=== PATIENT | female | born 1990 | race Caucasian/White ===

== ENCOUNTER → 2020-04-03 15:15 | Outpatient (CLI) | payer BC, SELFPAY ==
[2020-04-03 14:41] VITALS: BMI 29.4
[2020-04-03 15:49] LABS: Absolute Lymphocyte Count 2.35 X10^3/uL (0.83-4.51); Absolute Neutrophil Count 6.6 X10^3/uL (2.0-7.7); Basophil# 0.02 X10^3/uL; Basophil% 0.2 % (0-1); Eosinophil# 0.13 X10^3/uL; Eosinophils% 1.4 % (0-5); Hematocrit 39.2 % (37-47); Hemoglobin 13.5 g/dL (12.0-15.0); Lymphocyte # 2.35 X10^3/ul (4.0); Lymphocyte % 24.6 % (19-41); Mean Corp Hgb Conc 34.4 g/dL (32-36); Mean Corpuscular Hgb 29.1 pg (27.0-32.0); Mean Corpuscular Volume 84.5 fL (81-99); Mean Platelet Vol. 8.9 fl (6.2-12.0); Monocyte# 0.48 X10^3/uL; NRBC Flagged by Analyzer 0 % (0-5); Neutrophil # 6.57 X10^3/uL (2.7-7.7); Neutrophil % 68.6 % (47-70); Platelet Count 304 K/mm3 (150-450); RBC Distribution Width CV 12.7 % (11.6-14.6); RBC Distribution Width SD 38.8 fl (35.1-43.9); Red Blood Count 4.64 M/mm3 (4.2-5.4); White Blood Count 9.6 K/mm3 (4.4-11.0)
[2020-04-03 18:57] LABS: Amphetamine Urine VISTA NEGATIVE (<1000 ng/mL); Barbiturate Urine VISTA NEGATIVE (< 200 ng/mL); Benzodiazepine Urine VISTA NEGATIVE (< 200 ng/mL); Cocaine Urine VISTA NEGATIVE (< 300 ng/mL); Ecstacy Urine VISTA NEGATIVE (< 500 ng/mL); Methadone Urine VISTA NEGATIVE (< 300 ng/mL); PCP Urine VISTA NEGATIVE (< 25 ng/mL); THC Urine VISTA NEGATIVE (< 50 ng/mL); Vista UDS pH Range 5
[2020-04-04 04:31] LABS: Rapid Plasmin Reagin (RPR) NONREACTIVE (NONREACTIVE)
[2020-04-04 10:21] LABS: HIV - WCH Non-Reactive (Nonreactive); Hepatitis B Surface Antigen Non-Reactive (Nonreactive); Hepatitis C Antibody Non-Reactive (Nonreactive); Rubella IgG 75.3 IU/mL
[2020-04-06 20:07] LABS: Chlamydia By Nucleic Acid AMP Negative (Negative)
[2020-04-06 20:50] LABS: Gonococcus By Nucleic Acid AMP Negative (Negative)
[2020-04-08 20:51] LABS: HPV Reflexed? NOT INDICATED
== END ==
PROVIDERS: Referring Provider Obstetrics & Gynecology; Visit Provider Obstetrics & Gynecology
DX: Z34.80 Encounter for supervision of other normal pregnancy, unspecified trimester (principal); Z12.4 Encounter for screening for malignant neoplasm of cervix
CPT/HCPCS: 36415; 80307; 85025; 86592; 86703; 86762; 86803; 86850; 86900; 86901; 87086; 87088; 87340; 87491; 87591; 88175; G0145

== ENCOUNTER → 2020-05-07 10:19 | Outpatient (CLI) | payer BC, SELFPAY ==
[2020-05-07 09:55] VITALS: BMI 29.2
[2020-05-07 17:09] LABS: NATERA MAILED SPECIMEN
[2020-05-08 12:19] LABS: Toxoplasma Gondii IgG < 3.0 IU/mL (0.0-7.1); Toxoplasma Gondii IgM < 3.0 AU/mL (0.0-7.9)
== END ==
PROVIDERS: Referring Provider Nurse Practitioner Women's Health; Visit Provider Nurse Practitioner Women's Health
DX: Z31.430 Encounter of female for testing for genetic disease carrier status for procreative management (principal); Z34.81 Encounter for supervision of other normal pregnancy, first trimester
CPT/HCPCS: 36415; 86777; 86778

== ENCOUNTER → 2020-06-19 10:20 | Outpatient (CLI) | payer BC, SELFPAY ==
[2020-05-29 13:38] VITALS: BMI 29.8
== END ==
PROVIDERS: Referring Provider Nurse Practitioner Women's Health; Visit Provider Nurse Practitioner Women's Health
DX: U07.1 COVID-19 (principal)
CPT/HCPCS: 87635; C9803; U0003

== ENCOUNTER → 2020-08-21 11:22 | Outpatient (CLI) | payer BC, SELFPAY ==
[2020-07-24 10:57] VITALS: BMI 30.5
[2020-08-21 11:45] LABS: Absolute Lymphocyte Count 1.64 X10^3/uL (0.83-4.51); Absolute Neutrophil Count 6.5 X10^3/uL (2.0-7.7); Basophil# 0.02 X10^3/uL; Basophil% 0.2 % (0-1); Eosinophil# 0.09 X10^3/uL; Hematocrit 35.2 % (37-47); Hemoglobin 11.8 g/dL (12.0-15.0); Lymphocyte # 1.64 X10^3/ul (4.0); Mean Corp Hgb Conc 33.5 g/dL (32-36); Mean Corpuscular Hgb 29.2 pg (27.0-32.0); Mean Corpuscular Volume 87.1 fL (81-99); Mean Platelet Vol. 8.5 fl (6.2-12.0); Monocyte# 0.36 X10^3/uL; Monocyte% 4.2 % (0-10); NRBC Flagged by Analyzer 0 % (0-5); Neutrophil # 6.48 X10^3/uL (2.7-7.7); Neutrophil % 75.1 % (47-70); Platelet Count 218 K/mm3 (150-450); RBC Distribution Width CV 13.2 % (11.6-14.6); RBC Distribution Width SD 42.1 fl (35.1-43.9); Red Blood Count 4.04 M/mm3 (4.2-5.4); White Blood Count 8.6 K/mm3 (4.4-11.0)
[2020-08-21 11:52] LABS: Glucose Challenge Gest 1H 50g 81 mg/dL (70-140)
[2020-08-22 13:30] LABS: Toxoplasma Gondii IgG < 3.0 IU/mL (0.0-7.1)
[2020-08-22 13:49] LABS: Toxoplasma Gondii IgM < 3.0 AU/mL (0.0-7.9)
== END ==
PROVIDERS: Referring Provider Obstetrics & Gynecology; Visit Provider Obstetrics & Gynecology
DX: Z34.80 Encounter for supervision of other normal pregnancy, unspecified trimester (principal); Z20.7 Contact with and (suspected) exposure to pediculosis, acariasis and other infestations
CPT/HCPCS: 36415; 82950; 85025; 86777; 86778

== ENCOUNTER → 2020-09-26 14:33 | Outpatient (CLI) | payer BC, SELFPAY ==
[2020-09-18 15:57] VITALS: BMI 32.5
--- NOTE | 2020-09-26 14:44 | US_ITS ---
STUDY: SECOND AND THIRD TRIMESTER OBSTETRICAL ULTRASOUND - LIMITED REASON FOR EXAM: Female, 30 years old 30 week growth US LMP: Unknown. PRIOR ULTRASOUND: None. TECHNIQUE: Transabdominal TECHNICAL QUALITY: Adequate. FINDINGS: There is a single intrauterine fetus. The fetus is in a cephalic presentation. There is demonstrated cardiac activity with a heart rate of 140 bpm. There is a normal -borderline polyhydramnios . The largest amniotic fluid pocket measures 5.3 cm. The amniotic fluid index (MILLY) is 19.5 cm. The placenta is fundal in location. There are Grade 1 placental changes. The cervix measures 3.8 cm cm in length. The cervix is closed. Bilateral adnexal regions are not visualized. BIOMETRY: BPD: 8.5 cm: 34 weeks, 3 days HC: 30.7 cm: 34 weeks, 1 days AC: 29.6 cm: 33 weeks, 4 days FL: 6.5 cm: 33 weeks, 2 days Age by LMP: 33 weeks, 4 days. ASHWIN by LMP: 11/10/2020. age by prior US: No prior ultrasound. age by current US: 33 weeks, 5 days. ASHWIN by current US: 11/09/2020. Estimated weight: 2281 grams, +/- 342 grams, 50 percentile. anatomy is limited due to advanced gestation and motion. There is mild right-sided renal pelviectasis up to 0.8-0.9 cm. Subtle punctate echogenicities within the amniotic fluid which may be associated with vernix. intracranial structures. No hydrocephalus. US/OB Limited With Biometrics IMPRESSION: Single intrauterine with ultrasound age of 33 weeks and 5 days and estimated date of delivery of 11/05/2020. Fundal placenta. No previa. VERTEX presentation. Normal-borderline polyhydramnios amniotic fluid is described. Right-sided renal pelvis dilatation/pelviectasis, follow-up recommended to exclude development of right hydronephrosis including the period. Normal cardiac activity. Electronically Signed: Shyann Markham MD at 0:43 EST , Service support ,
== END ==
PROVIDERS: Referring Provider Nurse Practitioner Women's Health; Visit Provider Nurse Practitioner Women's Health
DX: Z34.80 Encounter for supervision of other normal pregnancy, unspecified trimester (principal)
CPT/HCPCS: 76816

== ENCOUNTER → 2020-10-16 16:17 | Outpatient (CLI) | payer BC, SELFPAY ==
[2020-10-16 13:23] VITALS: BMI 32.6
== END ==
PROVIDERS: Referring Provider Obstetrics & Gynecology; Visit Provider Obstetrics & Gynecology
DX: Z34.80 Encounter for supervision of other normal pregnancy, unspecified trimester (principal)
CPT/HCPCS: 87081

== ENCOUNTER 2020-10-23 02:45 | Inpatient (IN) | payer BC, SELFPAY ==
[2020-10-16 13:23] VITALS: BMI 32.6
[2020-10-23] VITALS (44 sets, daily range): BP systolic 87–117; BP diastolic 51–72; PULSE 68–101; RESP 16–18; TEMP 36.1–37.1; O2SAT 98–100; BMI 32.2
[2020-10-23 02:43] LABS: ROM Internal Control Test YES-OK TO RESULT pt. (Internal QC)
[2020-10-23 02:44] LABS: ROM Patient Test POSITIVE (Negative)
[2020-10-23] MEDS: Lactated Ringers 1,000 ML 50 ML IV (04:30)
[2020-10-23 04:59] LABS: Absolute Neutrophil Count 7.9 X10^3/uL (2.0-7.7); Basophil# 0.03 X10^3/uL; Basophil% 0.3 % (0-1); Eosinophil# 0.06 X10^3/uL; Eosinophils% 0.5 % (0-5); Hematocrit 36.9 % (37-47); Hemoglobin 12.6 g/dL (12.0-15.0); Lymphocyte % 21.9 % (19-41); Mean Corp Hgb Conc 34.1 g/dL (32-36); Mean Corpuscular Hgb 30.1 pg (27.0-32.0); Mean Corpuscular Volume 88.3 fL (81-99); Monocyte# 0.54 X10^3/uL; Monocyte% 4.9 % (0-10); NRBC Flagged by Analyzer 0 % (0-5); Neutrophil # 7.86 X10^3/uL (2.7-7.7); Neutrophil % 71.9 % (47-70); Platelet Count 212 K/mm3 (150-450); RBC Distribution Width CV 13.2 % (11.6-14.6); RBC Distribution Width SD 43.5 fl (35.1-43.9); Red Blood Count 4.18 M/mm3 (4.2-5.4); White Blood Count 10.9 K/mm3 (4.4-11.0)
[2020-10-23] MEDS: Oxytocin 30 units/NS 500 ml 30 UNITS/500 ML IV.SOLN IV (06:03)
--- NOTE | 2020-10-23 08:03 | HP.PCM_ITS ---
- Problem List (1) Abnormal ultrasound Status: Acute Comment: MFM scan on 10/07- Offered echo 2/2 abnormal 3 vessel views, but MFM said not completely necessary as view likely normal. Declines echo. 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 Titers drawn 05/07 then in 12w if neg. Neg. titers from 05/07 (5) Family history of cystic fibrosis Status: Acute Comment: Prior infant CF carrier. (6) pyelectasis Status: Acute Comment: ride side- MFM scan done 10/07 no pyelectasis seen (7) Headache in Status: Acute Qualifiers: Comment: Reports near daily headaches. Recommended daily magnesium supplement. Reglan prescribed to help with headaches. Recommend taking tylenol, reglan, and benadryl if severe. (8) History of tetanus, diphtheria, and acellular pertussis booster vaccination (Tdap) Status: Acute Comment: 08/21/20 (9) Status: Acute Qualifiers: Comment: genetic- low risk female, carrier and NTD, nl anatomy (10) Supervision of other normal Status: Acute Comment: [id number] ASHWIN Girl! 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 Required: No Is patient in pain?: No Allergies No Known Allergies Allergy (Verified 10/16/20 13:23) Medications Vits Prenatabs FA 1 tab PO DAILY 12/06/14 history Confirmed 10/16/20 metoclopramide HCl 10 mg tablet 10 mg PO Q6H PRN #30 tab 05/29/20 Rx Confirmed 10/16/20 ondansetron 4 mg disintegrating tablet 4 mg PO Q8H #30 tab 05/29/20 Rx Confirmed 10/16/20 scopolamine base 1 mg over 3 days transdermal patch 1 patch TRANSDERMAL Q3D PRN #10 ea 05/31/20 Rx Confirmed 10/16/20 aspirin 81 mg chewable tablet 81 mg PO DAILY 07/04/20 history Confirmed 10/16/20 magnesium chloride mg PO 07/04/20 history Confirmed 10/16/20 Last Menstral Period: 02/01/20 Zika: Zika virus screening: Negative : No PFSH PFSH Surgical History H/O wisdom tooth extraction (Acute) Social History (Updated 10/16/20 @ 14:[address] Jessica Armstrong MD) Smoking Status: Never smoker Pregancy History 3 Elective abortions Hx Para 2 Spontaneous abortions Hx # Term Pregnancies Ectopic pregnancies Hx # Pregnancies Multiple births # of living children 2 Past Pregnancies Del. Date Name GA/Weeks Outcome Route Bth Weight Gen Labor Lgth Anesthesia Del Locatn Provider FOB Unknown 12/06/2014 Brad 41 live - full term 8lbs 7oz Male 12 hours epidural [facility] Ram Irvin Unknown 03/30/2016 Brennan 39 live - full term 8lbs 1oz Male 4hours epidural [facility] Marcanthony Irvin Delivery Date: no complications; + GBS tx in labor with PCN Zelda Bates Delivery Date: no complication; GBS + tx with PCN in labor Zelda Bates HPI 36 WK OB: Details: MARITZA REN is a 30 year old at 37 weeks presents with clear loss of fluid with no regular contractions no vaginal bleeding good movement. Patient has had an uncomplicated . OB Visit ASHWIN Calculator Estimated Delivery Date Method Current WG Current Estimate 11/10/20 LMP (Certain) 36w 3d Other Estimates 11/06/20 Ultrasound #1 37w 0d Expected Delivery Route/Plan Labor Preferences- CB/BF classes: no labor support person: Irvin labor intervention preferences: open to standard interventions pain management options preferred: epidural cut cord/dad catch: NO!! : yes PP control planned: discussed possible routes of delivery and associated risks: discussed possible delivery modalities and possible indications for each including R/B/A of , VAVD, FAVD, and CS. questions answered. special requests: Specific Issue/Plans flu vaccine: declines tdap vaccine: given rhogam: na LARC form signed: 2/3 Problem list reviewed and updated with the most current plan of care details and appropriate orders placed. Relevant counseling for the gestational age provided. Continue routine care and follow up unless otherwise noted in visit notes/problem list details Initial Weight: 162 lb Date EGA Weight BP Urine Prot Glucose FHR FuHt Pres Dilation Effaced St Visit Note 04/03/20 8w 3d 162 lb (+0 oz) 185 GP - CRL 20mm consistent with LMP 05/07/20 13w 2d 165 lb 2 oz (+3 lb 2 oz) 110/60 Negative Negative 154 MH-No VB,LOF. Mininal nausea with car rides/will call if wants zofran. Toxo titers and carrier/NIPT drawn today. 05/29/20 16w 3d 168 lb 6 oz (+6 lb 6 oz) 116/60 Negative Negative 150 GP - no cramping or bleeding. Continued nausea in car - zofran prescribed. Rec scopalamine patch. Daily headaches - recommended magnesium, prn reglan prescribed. 07/04/20 21w 4d 170 lb (+8 lb) 110/60 Negative Negative 156 MH-No VB, LOF. Good FM. 07/24/20 24w 3d 172 lb 8 oz (+10 lb 8 oz) 108/60 Negative Negative 150 GP - no LOF, VB, DFM, ctx. Plan toxo titers with 28w labs. GP - no LOF, VB, DFM, ctx. Plan toxo titers with 28w labs. Headache improved with daily magnesium. 08/21/20 28w 3d 180 lb 2 oz (+18 lb 2 oz) 102/68 Negative Negative 145 28 GP - no ctx, LOF, VB, DFM. 28w labs normal. Toxo titers pending. Having low BP and dizziness - rec increased fluids and salt intake. 09/05/20 30w 4d 182 lb 4 oz (+20 lb 4 oz) 102/62 Negative Negative 145 30 GP - no LOF, VB, DFM, ctx. Denies complaints. 09/18/20 32w 3d 184 lb 2 oz (+22 lb 2 oz) 100/62 Negative Negative 147 32 MH-No VB, LOF. Good FM. Growth US ordered 10/04/20 34w 5d 185 lb 4 oz (+23 lb 4 oz) 100/70 Negative Negative 135 34 GP - no LOF, VB, DFM, ctx. Denies complaints. Discussed labor preferences and routes of delivery. 10/16/20 36w 3d 184 lb 3 oz (+22 lb 3 oz) 100/72 Negative Negative 135 36 GP - no LOF, VB, DFM, ctx. GBS done today. ACOG First Trimester First Trimester: Desire for , Alcohol, Tobacco Cessation, Illicit/Recreational Drug/Substance Use, Intimate Partner Violence, Barriers to care, Unstable Housing, Communication Barriers, Environmental/Work Hazards, Anticipated Course of Care, Toxoplasmosis Precations, Use of Any medications, Sexual activity, Exercise, Dental Care, Sauna/Hot tub use, Seat Belt use, Childbirth classes/Hospital facilities, , Indications for US and Screening for Aneuploidy Diagnostics Diagnostics Diagnostics Blood Type A POSITIVE 04/03/20 Antibody Screen NEGATIVE 04/03/20 Glucose 1 Hr 50 gm 81 mg/dL (70-140) 08/21/20 HIV 1&2 Antibody Non-Reactive (Nonreactive) 04/03/20 Rubella IgG Antibody 75.3 IU/mL 04/03/20 Hgb 11.8 g/dL (12.0-15.0) L 08/21/20 Hct 35.2 % (37-47) L 08/21/20 RPR NONREACTIVE (NONREACTIVE) 04/03/20 Chlamydia DNA (JIMMY) Negative (Negative) 04/03/20 N.gonorrhoeae DNA (JIMMY) Negative (Negative) 04/03/20 Details: HIV: Urine Culture: Sequential Screen: NIPT Screen: ROS GI Denies heartburn, Denies nausea, Denies vomiting Denies abnormal vaginal bleeding, Denies painful urination, Denies pelvic pain, Denies vaginal discharge, Denies vaginal odor, Denies vaginal itching Exam Const General: cooperative, healthy appearing, comfortable, no acute distress, well developed, well groomed Nutritional Appearance: average body habitus, well nourished Orientation: alert, awake, oriented x3 HENMT Head: normal to inspection, normocephalic, atraumatic Eyes Pupils: PERRL, accommodation normal Resp Effort & Inspection: normal respiratory effort, able to speak in complete sentences, symmetric chest movement Cardio Rate: regular rate GI Palpation: soft, no guarding, no masses, nontender Skin General: no rashes or lesions noted, elasticity normal, turgor normal Neuro General: alert, awake, oriented x3 Cranial Nerves: CN's II-XI intact bilaterally, sense of smell intact, PERRL, accommodation normal, EOM intact bilaterally Speech: speech normal Gait: normal gait Psych Appearance: grossly normal, well kempt Mental Status: mental status grossly normal Mood: congruent mood Affect: normal affect Speech and Movement: speech and movement normal Attitude: cooperative Thought Process: normal Thought Content: normal Judgment: judgment good Results POC Urinalysis 2 Dip (Clinic) Office Urine Glucose Negative Last Edit by Cici Limon on 10/16/20 13:39 Office Urine Protein Negative Last Edit by Cici Limon on 10/16/20 13:39 Assessment & Plan Problems 1. Abnormal ultrasound O28.3 MFM scan on 10/07- Offered echo 08/20 abnormal 3 vessel views, but MFM said not completely necessary as view likely normal. Declines echo. 2. History of tetanus, diphtheria, and acellular pertussis booster vaccination (Tdap) Z92.29 08/21/20 3. pyelectasis ride side- MFM scan done 10/07 no pyelectasis seen 4. headache in third trimester O26.893 Reports near daily headaches. Recommended daily magnesium supplement. Reglan prescribed to help with headaches. Recommend taking tylenol, reglan, and benadryl if severe. 5. Cystic fibrosis carrier Z14.1 positive carrier 6. Family history of cystic fibrosis Z83.49 Prior CF carrier. 7. 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 Titers drawn /20 then in 12w if neg. Neg. titers from 20 8. Supervision of other normal Z34.80 [id number] ASHWIN Girl! PC: Brennan Salinas Spouse: Irvin 9. 36 weeks gestation of Z3A.36 genetic- low risk female, carrier and NTD, nl anatomy 10. COVID-19 affecting , antepartum O98.519; U07.1 baby ASA and growth scan 3rd trimester Patient presents PROM plan Pitocin for augmentation if no spontaneous change. Pain management: Plans epidural. GBS negative. Management of any complications: None I have reviewed the [facility] and made any clinically relevant updates. Orders Orders: POC Urinalysis 2 Dip (Clinic) Today Culture, Group B Streptococcus Today Z34.80 Coding Level of Care Code OB Routine Diagnoses Abnormal ultrasound O28.3 History of tetanus, diphtheria, and acellular pertussis booster vaccination (Tdap) Z92.29 pyelectasis headache in third trimester O26.893 ??Trimester: third trimester Cystic fibrosis carrier Z14.1 Family history of cystic fibrosis Z83.49 Exposure to Toxoplasma species Z20.7 Supervision of other normal Z34.80 36 weeks gestation of Z3A.36 ??Weeks of gestation: 36 weeks COVID-19 affecting , antepartum O98.519; U07.1
[2020-10-23] MEDS: Lactated Ringers 500 ML 999 ML IV (09:06)
[2020-10-23] MEDS: fentaNYL-bupivacaine (epidural) 100 ML BAG EPIDURAL (10:01)
[2020-10-23] MEDS: Oxytocin 30 units/NS 500 ml 30 UNITS/500 ML IV.SOLN 334 UNITS IV (11:11)
--- NOTE | 2020-10-23 11:22 | PCM.OPRPT ---
Problem List (1) Abnormal ultrasound Status: Acute Comment: MFM scan on 10/07- Offered echo 2/2 abnormal 3 vessel views, but MFM said not completely necessary as view likely normal. Declines echo. 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 Titers drawn 05/07 then in 12w if neg. Neg. titers from 05/07 (5) Family history of cystic fibrosis Status: Acute Comment: Prior infant CF carrier. (6) pyelectasis Status: Acute Comment: ride side- MFM scan done 10/07 no pyelectasis seen (7) Headache in Status: Acute Qualifiers: Comment: Reports near daily headaches. Recommended daily magnesium supplement. Reglan prescribed to help with headaches. Recommend taking tylenol, reglan, and benadryl if severe. (8) History of tetanus, diphtheria, and acellular pertussis booster vaccination (Tdap) Status: Acute Comment: 08/21/20 (9) Status: Acute Qualifiers: Comment: genetic- low risk female, carrier and NTD, nl anatomy (10) Supervision of other normal Status: Acute Comment: [id number] ASHWIN Girl! PC: Brennan Salinas Spouse: Irvin Vaginal Delivery Maternal Presentation: Active Labor ial PROM Method of Induction: Pitocin Amniotic Membrane Rupture Type: Spontaneous at home Amniotic Fluid Description: Clear Date of Procedure: 10/23/20 Pre-Operative Diagnosis: ial prom Post-Operative Diagnosis: same Surgery/ Procedure Performed: Spontaneous Vaginal Delivery Type of Anesthesia: Epidural Description of Procedure: Patient began pushing and delivered the head in the LONNIE presentation. The head was delivered atraumatically . The anterior and posterior shoulders delivered without complication followed by the rest of the infant and the was placed on the maternal abdomen. Delayed cord clamping was employed for approximately 60 seconds. Cord was clamped and cut and gentle traction was applied to the cord and the placenta delivered spontaneously immediately following it was noted to be intact with three-vessel cord. The perineum and vagina were inspected and noted to have no laceration. EBL was 100 cc. Patient and infant tolerated delivery well. Presentation: LONNIE Placental Delivery Description: Spontaneous Placenta Disposition: [facility] Cord Vessel Description: 3 Vessels Cord Entanglement: None Estimated Blood Loss: 100 Infant A gender: Female Episiotomy Description: None Laceration: None Medications given after delivery: IV Pitocin Complications: None Multi Select Codes - Urinary/Genital Urinary/Genital CPT Codes: 25968 Vaginal Delivery [facility]
--- NOTE | 2020-10-23 11:24 | DCINST_ITS ---
Discharge Diet: No Restrictions Discharge Activity: Return to Normal Activity, May not drive while taking narcotic pain medications., May Shower May resume sexual activity in: 4-6 weeks Call your doctor if your incision/area has: Continuous Slow Oozing, Sudden Increased Bleeding, Increased Pain/ Swelling, Increased Redness, Foul Smelling Discharge Additional Instructions: If you experience any of the following, contact your healthcare provider. * Bleeding that soaks a pad every hour for 2 hours * Fever 100.4 or higher * Unrelieved incision or abdominal pain * Swelling, redness, discharge or bleeding from your incision or episiotomy site * Your incision begins to separate * Problems urinating (including inability to urinate or burning while urinating). * Visual changes * Severe headache * Flu-like symptoms * Pain or redness in one of both of your breasts * Pain, warmth, tenderness or swelling in your legs, especially the calf area * Frequent nausea and vomiting * Symptoms of depression or anxiety If you experience any of the following, call 911 or go to the nearest Emergency Room. * Chest pain * Problems breathing * Seizure activity * Partial or complete paralysis of a body part, slurred speech, weakness or drooping of the face, or a sudden inability to walk or hold your balance Allergies/Adverse Reactions: Allergies No Known Allergies Allergy (Verified 10/23/20 02:24) Medications to take at Discharge Vits [Prenatabs FA] 1 tab PO DAILY 12/06/14 aspirin 81 mg chewable tablet 81 mg PO DAILY 07/04/20 magnesium chloride 500 mg PO 07/04/20 Vitamin B6 10/23/20 Please Follow Up With: Lily Vila MD - [phone] When: Call to make an appointment with your doctor in 6 weeks. If you had elevated Blood pressure or 4th degree laceration you will need to be seen in 2 weeks. Primary Care Physician: Care Physician,No Primary [Primary Care Provider] - Test Results: Test results from this visit will be discussed in further detail at your follow- up appointment, if applicable.
--- NOTE | 2020-10-23 11:24 | PCM.DCVAG ---
Discharge Diet: No Restrictions Discharge Activity: Return to Normal Activity, May not drive while taking narcotic pain medications., May Shower May resume sexual activity in: 4-6 weeks Call your doctor if your incision/area has: Continuous Slow Oozing, Sudden Increased Bleeding, Increased Pain/ Swelling, Increased Redness, Foul Smelling Discharge Additional Instructions: If you experience any of the following, contact your healthcare provider. Bleeding that soaks a pad every hour for 2 hours Fever 100.4 or higher Unrelieved incision or abdominal pain Swelling, redness, discharge or bleeding from your incision or episiotomy site Your incision begins to separate Problems urinating (including inability to urinate or burning while urinating). Visual changes Severe headache Flu-like symptoms Pain or redness in one of both of your breasts Pain, warmth, tenderness or swelling in your legs, especially the calf area Frequent nausea and vomiting Symptoms of depression or anxiety If you experience any of the following, call 911 or go to the nearest Emergency Room. Chest pain Problems breathing Seizure activity Partial or complete paralysis of a body part, slurred speech, weakness or drooping of the face, or a sudden inability to walk or hold your balance Allergies/Adverse Reactions: Allergies No Known Allergies Allergy (Verified 10/23/20 02:24) Medications to take at Discharge Vits [Prenatabs FA] 1 tab PO DAILY 12/06/14 aspirin 81 mg chewable tablet 81 mg PO DAILY 07/04/20 magnesium chloride 500 mg PO 07/04/20 Vitamin B6 10/23/20 Please Follow Up With: Lily Vila MD - [phone] When: Call to make an appointment with your doctor in 6 weeks. If you had elevated Blood pressure or 4th degree laceration you will need to be seen in 2 weeks. Primary Care Physician: Care Physician,No Primary [Primary Care Provider] - Test Results: Test results from this visit will be discussed in further detail at your follow-up appointment, if applicable.
[2020-10-23] MEDS: 0.9% Saline Lock 10 ML Syringe IV (14:00)
[2020-10-23] MEDS: Acetaminophen 500 MG Tablet 1000 MG PO (21:04)
[2020-10-23] MEDS: Naproxen 250 MG Tablet 500 MG PO (22:28)
[2020-10-24 01:25] VITALS: BP 108/68; PULSE 77; RESP 16; TEMP 36.2
[2020-10-24 05:12] VITALS: BP 108/68; PULSE 81; TEMP 36.1
[2020-10-24 05:14] VITALS: BP 108/68; PULSE 81; RESP 18; TEMP 36.1
[2020-10-24 07:52] VITALS: BP 101/64; PULSE 89; RESP 16; TEMP 36
--- NOTE | 2020-10-24 08:15 | PCM.PN.OB ---
Patient Problems: Active and Suspected Problems (Last Reviewed 10/16/20 @ 13:23 by Cici Limon) Abnormal ultrasound (Acute) MFM scan on 10/07- Offered echo 2/ abnormal 3 vessel views, but MFM said not completely necessary as view likely normal. Declines echo. History of tetanus, diphtheria, and acellular pertussis booster vaccination (Tdap) (Acute) 08/21/20 pyelectasis (Acute) ride side- MFM scan done 10/07 no pyelectasis seen COVID-19 affecting , antepartum (Acute) baby ASA and growth scan 3rd trimester Headache in (Acute) Reports near daily headaches. Recommended daily magnesium supplement. Reglan prescribed to help with headaches. Recommend taking tylenol, reglan, and benadryl if severe. Cystic fibrosis carrier (Acute) positive carrier Family history of cystic fibrosis (Acute) Prior infant CF carrier. 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 Titers drawn 05/07 then in 12w if neg. Neg. titers from 05/07 Supervision of other normal (Acute) [id number] ASHWIN Girl! PC: Brenann Salinas Spouse: Irvin (Acute) genetic- low risk female, carrier and NTD, nl anatomy Subjective: Patient doing well without complaints. Tolerating PO. Ambulating and voiding without difficulty. feeding well. Denies chest pain, shortness of breath, calf pain/swelling, fevers, chills, lightheadedness. - Physical Exam Vitals/I&O's: Vital Signs Temp Pulse Resp BP Pulse Ox 96.8 F L 89 16 101/64 98 10/24/20 07:52 10/24/20 07:52 10/24/20 07:52 10/24/20 07:52 10/23/20 16:45 Oxygen Delivery Method Room Air Weight: 182 lb 2 oz Body Mass Index (BMI) 32.2 Intake and Output for Last 24 Hours 10/22/20 10/23/20 10/24/20 23:59 23:59 23:59 Intake Total 1529.40 / 1529.40 Output Total 2150 / 2150 Balance -620.60 / -620.60 General: Alert, Oriented x3 Microbiology Past 72 Hours 10/23/20 05:05 Mucosa - Nose SARS-CoV-2 Antigen (Rapid) - Final Current Medications Acetaminophen (Acetaminophen 500 Mg Tablet) 1,000 mg PO Q8H PRN PRN PRN Reason: Pain Score 1-3 Last Admin: 10/23/20 21:04 Dose: 1,000 mg Documented by: Bisacodyl (Bisacodyl 10 Mg Suppository) 10 mg RC UD PRN PRN Reason: If no BM Dibucaine (Dibucaine 30 Gm Tube) 1 applic TOPICAL TID PRN PRN; Protocol PRN Reason: Discomfort Hydrocortisone (Hydrocortisone 2.5% Crm) 1 applic TOPICAL TID PRN PRN; Protocol PRN Reason: Discomfort Methylergonovine Maleate (Methylergonovine 0.2 Mg/Ml Ampul) 0.2 mg IM X1 PRN PRN Reason: Excess bleeding/uterine atony Naproxen (Naproxen 250 Mg Tablet) 500 mg PO Q8H PRN PRN PRN Reason: Pain Score 1-3 Last Admin: 10/23/20 22:28 Dose: 500 mg Documented by: Ondansetron HCl (Ondansetron 4 Mg/2 Ml Vial) 4 mg IV Q4H PRN PRN PRN Reason: Nausea Oxycodone HCl (Oxycodone 5 Mg Tablet) 5 - 10 mg PO Q4H PRN PRN PRN Reason: Pain Score 4-10 Senna/Docusate Sodium (Senna/Docusate Sodium 1 Tablet) 1 - 2 tablet PO DAILY PRN PRN PRN Reason: Constipation Simethicone (Simethicone 80 Mg Tablet) 80 mg PO PCHS PRN PRN Reason: Indigestion/Stomach pain Sodium Chloride (0.9% Saline Lock 10 Ml Syringe) 5 - 15 ml IV UD PRN PRN Reason: SALINE FLUSH Last Admin: 10/23/20 14:00 Dose: 10 ml Documented by: Medical Necessity - Tobacco Use Smoking Status: Never smoker Assessment/Plan All Active Problems (Last Reviewed 10/16/20 @ 13:23 by Cici Limon) 37 weeks gestation of (Acute) Abnormal ultrasound (Acute) History of tetanus, diphtheria, and acellular pertussis booster vaccination (Tdap) (Acute) pyelectasis (Acute) COVID-19 affecting , antepartum (Acute) Headache in (Acute) Cystic fibrosis carrier (Acute) Family history of cystic fibrosis (Acute) Exposure to Toxoplasma species (Acute) Supervision of other normal (Acute) (Acute) s/p PPD # 1. routine post delivery care 2. breast feeding- support given 3. rh positive 4. rubella immune
[2020-10-24 11:49] VITALS: BP 109/66; PULSE 83; RESP 16; TEMP 36.2
== END 2020-10-24 13:35 | disposition home or self-care (01) | DRG 807 ==
LOC: WPOUT 02:46 → WP 02:46
PROVIDERS: Admitting Provider Obstetrics & Gynecology; Visit Provider Obstetrics & Gynecology
DX: O42.913 Preterm premature rupture of membranes, unspecified as to length of time between rupture and onset of labor, third trimester (principal); Z37.0 Single live birth; Z14.1 Cystic fibrosis carrier; Z83.49 Family history of other endocrine, nutritional and metabolic diseases; Z86.16 Personal history of COVID-19; Z3A.37 37 weeks gestation of pregnancy
CPT/HCPCS: 59025; 59050; 84112; 85025; 86850; 86900; 86901; 87426; 99218; J7120; A4216; G0378

== ENCOUNTER → 2022-01-16 | Outpatient (CLI) | payer BC, SELFPAY | END | disposition home or self-care (01) | PROVIDERS: Referring Provider Obstetrics & Gynecology; Visit Provider Obstetrics & Gynecology | DX: B37.3 Candidiasis of vulva and vagina (principal) | CPT/HCPCS: 87070; 87205 ==

== ENCOUNTER → 2022-11-24 | Outpatient (CLI) | payer BC, SELFPAY | END | disposition home or self-care (01) | LOC: LABSPEC 14:04 | PROVIDERS: Referring Provider Advanced Practice Midwife; Visit Provider Advanced Practice Midwife | DX: N76.0 Acute vaginitis (principal) | CPT/HCPCS: 87070; 87205 ==

== ENCOUNTER → 2023-06-23 | Outpatient (CLI) | payer BC, SELFPAY | END | disposition home or self-care (01) | PROVIDERS: Referring Provider Registered Nurse; Visit Provider Registered Nurse | DX: B37.31 Acute candidiasis of vulva and vagina (principal) | CPT/HCPCS: 87070; 87077; 87186; 87205 ==

== ENCOUNTER → 2024-07-06 | Outpatient (CLI) | payer BC, SELFPAY ==
[2024-07-08 08:09] LABS: Chlamydia By Nucleic Acid AMP Negative (Negative); Gonococcus By Nucleic Acid AMP Negative (Negative)
[2024-07-14 23:06] LABS: HPV APTIMA, High Risk Negative (Negative)
== END | disposition home or self-care (01) ==
LOC: LABSPEC 11:32
PROVIDERS: Referring Provider Advanced Practice Midwife; Visit Provider Advanced Practice Midwife
DX: Z12.4 Encounter for screening for malignant neoplasm of cervix (principal); O09.90 Supervision of high risk pregnancy, unspecified, unspecified trimester; Z3A.00 Weeks of gestation of pregnancy not specified
CPT/HCPCS: 87086; 87491; 87591; 87624; 88175; G0145

== ENCOUNTER → 2024-08-07 | Outpatient (CLI) | payer BC, SELFPAY ==
[2024-08-07 12:25] LABS: Absolute Lymphocyte Count 1.16 X10^3/uL (0.83-4.51); Absolute Neutrophil Count 6.3 X10^3/uL (2.0-7.7); Basophil# 0.02 X10^3/uL; Basophil% 0.3 % (0-1); Eosinophil# 0.13 X10^3/uL; Eosinophils% 1.6 % (0-5); Hematocrit 37.5 % (37-47); Hemoglobin 12.7 g/dL (12.0-15.0); Lymphocyte # 1.16 X10^3/ul (0.83-4.51); Lymphocyte % 14.6 % (19-41); Mean Corp Hgb Conc 33.9 g/dL (32-36); Mean Corpuscular Hgb 29.2 pg (27.0-32.0); Mean Corpuscular Volume 86.2 fL (81-99); Monocyte# 0.38 X10^3/uL; Monocyte% 4.8 % (0-10); NRBC Flagged by Analyzer 0 % (0-5); Neutrophil # 6.25 X10^3/uL (2.7-7.7); Neutrophil % 78.3 % (47-70); Platelet Count 263 K/mm3 (150-450); RBC Distribution Width CV 12.8 % (11.6-14.6); RBC Distribution Width SD 40.3 fl (35.1-43.9); Red Blood Count 4.35 M/mm3 (4.2-5.4)
[2024-08-07 13:52] LABS: HIV - WCH Non-Reactive (Nonreactive); Hepatitis B Surface Antigen Non-Reactive (Nonreactive); Hepatitis C Antibody Non-Reactive (Nonreactive); Rubella IgG Reactive (Nonreactive); Syphilis Antibodies Non-reactive
[2024-08-08 06:07] LABS: Toxoplasma Gondii IgG < 3.0 IU/mL (0.0-7.1); Toxoplasma Gondii IgM < 3.0 AU/mL (0.0-7.9)
== END | disposition home or self-care (01) ==
LOC: BWCLAB 10:03
PROVIDERS: Referring Provider Advanced Practice Midwife; Visit Provider Advanced Practice Midwife
DX: O09.90 Supervision of high risk pregnancy, unspecified, unspecified trimester (principal); Z3A.00 Weeks of gestation of pregnancy not specified; Z20.7 Contact with and (suspected) exposure to pediculosis, acariasis and other infestations
CPT/HCPCS: 36415; 85025; 86703; 86762; 86777; 86778; 86780; 86803; 86850; 86900; 86901; 87340

== ENCOUNTER → 2024-11-14 | Outpatient (CLI) | payer BC, SELFPAY ==
[2024-11-14 11:08] LABS: Absolute Lymphocyte Count 1.36 X10^3/uL (0.83-4.51); Absolute Neutrophil Count 5.9 X10^3/uL (2.0-7.7); Basophil# 0.03 X10^3/uL; Basophil% 0.4 % (0-1); Eosinophil# 0.09 X10^3/uL; Eosinophils% 1.1 % (0-5); Hematocrit 35.4 % (37-47); Hemoglobin 12.1 g/dL (12.0-15.0); Lymphocyte # 1.36 X10^3/ul (0.83-4.51); Lymphocyte % 17.3 % (19-41); Mean Corp Hgb Conc 34.2 g/dL (32-36); Mean Corpuscular Hgb 29.7 pg (27.0-32.0); Mean Platelet Vol. 8.8 fl (6.2-12.0); Monocyte# 0.44 X10^3/uL; Monocyte% 5.6 % (0-10); NRBC Flagged by Analyzer 0 % (0-5); Neutrophil # 5.87 X10^3/uL (2.7-7.7); Neutrophil % 74.7 % (47-70); Platelet Count 207 K/mm3 (150-450); RBC Distribution Width CV 13.2 % (11.6-14.6); RBC Distribution Width SD 41.4 fl (35.1-43.9); Red Blood Count 4.07 M/mm3 (4.2-5.4); White Blood Count 7.9 K/mm3 (4.4-11.0)
[2024-11-14 12:26] LABS: Glucose Challenge Gest 1H 50g 80 mg/dL (70-140); HIV Nonreactive (Nonreactive); Syphilis Antibodies Nonreactive (Nonreactive)
== END | disposition home or self-care (01) ==
PROVIDERS: Referring Provider Obstetrics & Gynecology; Visit Provider Obstetrics & Gynecology
DX: O09.90 Supervision of high risk pregnancy, unspecified, unspecified trimester (principal); Z3A.00 Weeks of gestation of pregnancy not specified; Z13.1 Encounter for screening for diabetes mellitus
CPT/HCPCS: 36415; 82950; 85025; 86703; 86780

== ENCOUNTER → 2025-01-15 | Outpatient (CLI) | payer BC, SELFPAY | END | disposition home or self-care (01) | LOC: LABSPEC 11:24 | PROVIDERS: Referring Provider Advanced Practice Midwife; Visit Provider Advanced Practice Midwife | DX: Z34.93 Encounter for supervision of normal pregnancy, unspecified, third trimester (principal); Z3A.34 34 weeks gestation of pregnancy | CPT/HCPCS: 87081 ==

== ENCOUNTER 2025-02-13 02:37 | Inpatient (IN) | payer BC, SELFPAY ==
[2025-02-13] VITALS (34 sets, daily range): BP systolic 99–116; BP diastolic 57–78; PULSE 65–98; RESP 16; TEMP 36.3–37; O2SAT 89–98; BMI 32.4
--- OUTSIDE RECORDS SUMMARY | 2025-02-13 02:41 | XMS RPT_ITS | CCD ---
Author Organization [facility] Care Team Providers Care Hair Preparer Name Role Phone Newwalil, Marlon Elizondoel Unavailable Unavailable Newbill, Marlon Charly Unavailable Unavailable Kraig Hollingsworth Unavailable Unavailable Newbill, Marlon Charly Unavailable Unavailable Newbill, Marlon Charly Unavailable Unavailable Kraig Hollingsworth Unavailable Unavailable Care Physician, No Primary Primary Care Provider Unavailable Care Physician, No Primary Referring Provider Un available Dr. Lily Vila Attending Provider [phone] Unavailable Primary Care Provider Unavailabl e SAMUEL SANTA Attending Unavailabl e SAMUEL SANTA Attending Unavailabl e Care Physician, No Primary Primary Care Provider Unavailable Care Physician, No Primary Referring Provider Un available KEVIN Singh Attending Provider [phone] Care Physician, No Primary Primary Care Provider Unavailable Care Physician, No Primary Referring Provider Un available KEVIN Esposito Attending Provider [phone] No, Physician Primary Care Provider Unavailabl e NO, PHYSICIAN Primary Care Unavailable MALAIKA CHAO Attending Unavaila MARCELLA Brown Attending Unavail able NO, PHYSICIAN Primary Care Unavailable NO PRIMARY CARE, MD Primary Care Unavailable RICARDO SINGH Referring Unavailable RICARDO SINGH Attending Unavailable Care Physician, No Primary Primary Care Provider Unavailable Care Physician, No Primary Referring Provider Un available Ricardo Singh CNM Attending Provider [phone] Ricardo Singh CNM Referring Provider [phone] Dr. Lily Vila MD Attending Provider [phone] Dr. Charlene Caro DO Attending Provider Dr. Charlene Caro DO Referring Provider Neyda Ambrose Attending Provider Care Physician, No Primary Primary Care Provider Unavailable Care Physician, No Primary Referring Provider Un available Care Physician, No Primary Primary Care Provider Unavailable Care Physician, No Primary Referring Provider Un available Cadence THOMPSON, Dr. Bautista Attending Provider [phone] Hernandez CNM, Ricardo Attending Provider [phone] Hernandez CNM, Ricardo Referring Provider [phone] Vaibhav CNM, Yazmin Attending Provider Care Physician, No Primary Primary Care Unava ilable Care Physician, No Primary Referring Unava ilable Charlene Caro Attending Unavailabl e Vande VelCharlene fonseca Attending Unavailabl e Care Physician, No Primary Primary Care Unava ilable Charlene Caro Referring Unavailabl e Care Physician, No Primary Primary Care Unava ilable Care Physician, No Primary Referring Unava ilable Ricardo Singh Attending Unavailable Care Physician, No Primary Referring Unava ilable Care Physician, No Primary Primary Care Unava ilLily Marino Attending Unavailable Care Physician, No Primary Referring Unava ilable Care Physician, No Primary Primary Care Unava ilable Neyda Corley Attending Unavailable Care Physician, No Primary Referring Unava ilable Care Physician, No Primary Primary Care Unava ilLily Marino Attending Unavailable Care Physician, No Primary Primary Care Unava ilable Care Physician, No Primary Referring Unava Ricardo Foster Attending Unavailable Care Physician, No Primary Primary Care Unava ilable Care Physician, No Primary Referring Unava Ricardo Foster Attending Unavailable Yazmin Esposito Attending Unavailable Care Physician, No Primary Primary Care Unava ilable Care Physician, No Primary Referring Unava ilable Care Physician, No Primary Primary Care Unava ilable Care Physician, No Primary Referring Unava Ricardo Foster Attending Unavailable Care Physician, No Primary Primary Care Unava ilable Care Physician, No Primary Referring Vivianva Ricardo Foster Attending Unavailable Charlene Caro Attending Unavailabl e Care Physician, No Primary Primary Care Unava ilable Care Physician, No Primary Referring Unava ilable Care Physician, No Primary Primary Care Unava ilable Neyda Corley Attending Unavailable Care Physician, No Primary Referring Unava ilable Care Physician, No Primary Primary Care Unava ilLily Marino Attending Unavailable Care Physician, No Primary Referring Unava ilable Care Physician, No Primary Primary Care Unava ilable Care Physician, No Primary Referring Unava Ricardo Foster Attending Unavailable Care Physician, No Primary Primary Care Unava Ricardo Foster Referring Unavailable Ricardo Singh Attending Unavailable Care Physician, No Primary Primary Care Vivianva Ricardo Foster Referring Unavailable Ricardo Singh Attending Unavailable Care Physician, No Primary Primary Care Vivianva Ricardo Fsoter Referring Unavailable Ricardo Singh Attending Unavailable Medications Current Medications Medication Drug Class(es) Dates Sig (Normalized) Sig (Original) benzethonium chloride 2 mg/ml / benzocaine 200 mg/ml topical spray (1 source) Standardized Chemical Allergen Start: 02-09-2025 Benzocaine-Benzet honium (Dermoplast First Aid) 20-0.2 % aerosol Active 1 NMA TOPICAL .PRN 78 0 February 09, 2025 12:00am cephalexin 500 mg oral capsule (1 source) Cephalosporin Antibacterial Start: 12-10-2023 End: 12-20-2023 take 1 capsule by mouth three times daily cephALEXin (KEFLEX) 500 MG capsule 1 capsule po tid x 7 days . 21 capsule 0 12/10/2023 12/20/2023 Active fluconazole 150 mg oral tablet (20 sources) Azole Antifungal Start: 12-10-2023 fluconazole (Diflucan) 100 MG tablet Take one tablet today, repeat second tab in 2 days if symptoms have not resolved. . 2 tablet 12/10/2023 Active Start: 06-23-2023 End: 04-13-2024 Fluconazole 150 mg tablet Di scontinued 150 mg PO Every 3 Days 2 0 June 23, 2023 1:00am April 13, 2024 11:12am Start: 01-16-2022 End: 11-24-2022 Fluconazole (Diflucan) 150 m g tablet Discontinued 150 mg PO .COMPLEX 7 January 16, 2022 12:00am November 24, 2022 1:01pm 150 mg PO now and in 72 hours and then take weekly for 6 months metroNIDAZOLE 500 mg oral tablet (13 sources) Nitroimidazole Antimicrobial Start: 02-18-2024 End: 02-25-2024 take 1 tablet by mouth twice daily at mealtime metroNIDAZOLE (FLAGYL) 500 MG tablet Indications: Vaginal pain , Vaginal itching Take 1 (one) tablet (500 mg total) by mouth 2 (two) times a day with meals for 7 days . 14 tablet 02/18/2024 02/25/2024 Active Start: 11-25-2022 End: 12-02-2022 take 1 tablet by mouth twice daily Metronidazole 500 mg tablet Discontinued 500 mg PO TWICE A DAY 14 7 0 November 25, 2022 12:00am December 01, 2022 12:00am December 02, 2022 12:08am Bacterial vaginosis Acute vaginitis Other specified bacterial agents as the cause of diseases classified elsewhere Multivit 89-Kedc-Bpimlv 1-Dha (Pnv-Dha) 27 mg iron-1 mg -300 mg capsule (9 sources) Start: 06-29-2024 Multivit 09-Zudi-Zkavbe 1-Dha (Pnv-Dha) 27 mg iron-1 mg -300 mg capsule Active NMA PO June 29, 2024 1:00am Nystatin / Triamcinolone (2 sources) Polyene Antifungal, Corticosteroid Start: 11-24-2022 Nystatin-Triamcinolo n e Active 1 APPLIC TOPICAL DAILY November 23, 2022 11:00pm Start: 11-24-2022 Nystatin-Triam cinolone Active 1 APPLIC TOPICAL DAILY November 24, 2022 12:00am Completed/Discontinued Medications Medication Drug Class(es) Dates Sig (Normalized) Sig (Original) aspirin 81 mg chewable tablet (12 sources) Platelet Aggregation Inhibitor, Nonsteroidal Anti-inflammatory Drug Start: 07-04-2020 End: 01-16-2021 take 1 tablet by mouth once daily Aspirin 81 mg tablet,chewable Discontinued 81 mg PO DAILY July 04, 2020 1:00am January 16, 2021 4:00pm Breast Pump margarita (2 sources) Start: 12-11-2014 Breast Pump margarita As directed 1 Device 0 12/11/2014 Active Comment on above: As directed cetirizine hydrochloride 10 mg oral capsule (12 sources) Histamine-1 Receptor Antagonist Start: 05-07-2020 End: 07-04-2020 take 1 capsule by mouth once daily Cetirizine (Zyrtec) 10 mg capsule Discontinued 10 mg PO DAILY May 07, 2020 12:00am July 04, 2020 12:33pm Ethinyl Estradiol / norgestimate (4 sources) Progestin, Estrogen Start: 04-07-2018 take 1 tablet by mouth once daily norgestimate 0.25 mg-ethinyl estradiol 35 mcg (SPRINTEC) 0.25-35 mg-mcg per tablet Take 1 tablet by mouth once daily. 1 Package 11 04/07/2018 Active Start: 03-10-2018 take 1 tablet by jaylin th once daily norgestimate 0.25 mg-ethinyl estradiol 35 mcg (SPRINTEC) 0.25-35 mg-mcg per tablet Take 1 tablet by mouth once daily. 3 Package 3 03/10/2018 Active Comment on above: Take 1 tablet by jaylin th once daily. INTRAUTERINE DEVICE, IUD, INTRAUTERINE (2 sources) INTRAUTERINE DEV ICE, IUD, INTRAUTERINE by INTRAUTERINE route. 0 Active Comment on above: by INTRAUTERINE rout e. ketoconazole 20 mg/ml medicated shampoo (2 sources) Azole Antifungal Start: 10-22-2017 ketoconazole (NIZORAL) 2 % shampoo levonorgestrel 0.178308 mg/hr intrauterine system (15 sources) Progestin, Progestin-containing Intrauterine Device Start: 01-16-2021 End: 04-13-2024 Levonorgestrel (Liletta) 20.1 mcg/24 hrs (6 yrs) 52 mg intrauterine device Discontinued 1 NMA INTRA-UTER ONCE January 16, 2021 12:00am April 13, 2024 11:12am as a single dose Start: 01-16-2021 Levonorgestrel (Liletta) 20.1 mcg/24 hrs (6 yrs) 52 mg intrauterine device Active 1 DEVICE INTRA-UTER ONCE January 15, 2021 11:00pm as a single dose Magnesium Chloride (3 sources) Start: 07-04-2020 End: 01-16-2021 Magnesium Chloride Discontin ued 500 MG PO July 04, 2020 12:00am January 16, 2021 3:00pm Start: 07-04-2020 End: 01-16-2021 Magnesium Chloride Discontin ued 500 MG PO July 04, 2020 1:00am January 16, 2021 4:00pm Magnesium Chloride 64 mg magnesium tablet (9 sources) Start: 07-04-2020 End: 01-16-2021 Magnesium Chloride 64 mg magnesium tablet Discontinued 500 mg PO July 04, 2020 1:00am January 16, 2021 4:00pm Check with primary doctor Start: 07-04-2020 End: 01-16-2021 Magnesium Chloride 64 mg mag nesium tablet Discontinued 500 mg PO July 04, 2020 1:00am January 16, 2021 4:00pm magnesium oxide 500 mg oral capsule (12 sources) Start: 01-16-2021 End: 11-24-2022 take 1 capsule by mouth once daily Magnesium Oxide 500 mg capsule Discontinued 500 mg PO DAILY January 16, 2021 12:00am November 24, 2022 1:01pm naproxen 250 mg oral tablet (20 sources) Nonsteroidal Anti-inflammatory Drug Start: 10-23-2020 End: 12-02-2020 take 250-500 mg by mouth every eight hours as needed for pain Naproxen 250 MG tablet Discontinued 250 - 500 mg PO EVERY 8 HOURS NEEDED as needed for MILD PAIN 30 1 October 23, 2020 12:00am December 02, 2020 2:57pm Start: 04-01-2016 End: 04-03-2020 take 250-500 mg by mouth every eight hours as needed for pain Naproxen 250 MG tablet Discontinued 250 - 500 mg PO EVERY 8 HOURS NEEDED as needed for MILD PAIN 30 0 April 01, 2016 12:00am April 03, 2020 1:57pm Nystatin-Triamcinolone 100,000-0.1 unit/gram-% ointment (9 sources) Start: 11-24-2022 End: 04-13-2024 Nystatin-Triamcinolone 100,000-0.1 unit/gram-% ointment Discontinued 1 NMA TOPICAL DAILY 30 0 November 24, 2022 12:00am April 13, 2024 11:12am Vaginitis Acute vaginitis Start: 11-24-2022 End: 04-13-2024 Nystatin-Triamcinolone 100,0 00-0.1 unit/gram-% ointment Discontinued 1 NMA TOPICAL DAILY November 24, 2022 12:00am April 13, 2024 11:12am VIT #76/IRON,CARB/FA (PNV 29-1 ORAL) (2 sources) VIT #76/IRON,CARB/FA (PNV 29-1 ORAL) Take 1 tablet by mouth. 0 Active Comment on above: Take 1 tablet by jaylin th. Vit,Faso84-Hqcq-Ytsim (3 sources) Start: 12-07-19 End: 01-17-20 take 1 tablet by mouth once daily Vit,Dpaw76-Stfm-Qmrxs Discontinued 1 TABLET PO DAILY December 05, 2014 11:00pm January 16, 2021 3:00pm Start: 12-06-2014 End: 01-16-2021 take 1 tablet by mouth once daily Vit,Frfv30-Yukh-Oarwy Discontinued 1 TABLET PO DAILY December 06, 2014 12:00am January 16, 2021 4:00pm Vit,Xdsy44-Bryv-Yyteq 1 TABLET tablet (9 sources) Start: 12-06-2014 End: 01-16-2021 take 1 tablet by mouth once daily Vit,Pzha37-Lqwe-Tsprc 1 TABLET tablet Discontinued 1 {tbl} PO DAILY December 06, 2014 12:00am January 16, 2021 4:00pm tropicamide 5 mg/ml ophthalmic solution (1 source) Anticholinergic Start: 11-09-2022 End: 11-09-2022 tropicamide 0.5 % 1 Drop (MYDRIACYL) Vitamin B6 (12 sources) Start: 10-23-2020 End: 12-02-2020 Vitamin B6 Discontinued October 23, 2020 12:00am December 02, 2020 2:57pm Check with primary doctor Start: 10-23-2020 End: 12-02-2020 Vitamin B6 Discontinued Apri l 2020 11:00pm December 02, 2020 1:57pm Start: 10-23-2020 End: 12-02-2020 Vitamin B6 Discontinued Apri l 2020 12:00am December 02, 2020 2:57pm Problems Active Problems Problem Classification Problem Date Documented Date Episodic/Chronic Abdominal pain (7 sources) Flank pain; Translations: [Unspecified abdominal pain] Onset: 4 12-10-2023 Episodic Blindness and vision defects (10 sources) Bilateral myopia of eyes; Translations: [Myopia, bilateral] Onset: Episodic 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 Titers drawn with NOB labs Inflammatory diseases of female pelvic organs (20 sources) Bacterial vaginosis; Translations: [Acute vaginitis] 11-25-2022 Episodic Mycoses (20 sources) Recurrent candidiasis of vagina; Translations: [Candidiasis of vulva and vagina] Onset: Episodic Comment on above: diflucan 6 month cou rse ordered. repeat culture ordered to rule out BV. diflucanx2 doses.vag inal health reviewedvaginal health probioticsboric acid after intercoursedietary modifications-? consider IUD removal. does not desire currently. Other complications of (12 sources) ultrasound scan abnormal; Translations: [Abnormal ultrasonic finding on screening of mother] 12-02-2020 Episodic Comment on above: MFM scan on 10/07- Of fered echo 2/2 abnormal 3 vessel views, but MFM said not completely necessary as view likely normal. Declines echo. Other complications of (12 sources) Disease caused by 2019-nCoV; Translations: [Other viral diseases complicating , unspecified trimester] 12-02-2020 Episodic Comment on above: baby ASA and growth scan 3rd trimester Other complications of (12 sources) Headache; Translations: [Other specified related conditions, unspecified trimester] 12-02-2020 Episodic Comment on above: Reports near daily h eadaches. Recommended daily magnesium supplement. Reglan prescribed to help with headaches. Recommend taking tylenol, reglan, and benadryl if severe. Other complications of (20 sources) High risk ; Translations: [Supervision of other high risk pregnancies, unspecified trimester] 06-29-2024 Episodic Comment on above: Pt also marshall ier but of a different CF gene than pt PRR, , ASHWIN , Brennan Benavides, Irvin Other complications of (1 source) Supervision of other high risk pregnancies, unspecified trimester; Translations: [Supervision of other high risk pregnancies, unspecified trimester] Onset: 5 Episodic Other complications of (1 source) Supervision of high risk , unspecified, third trimester; Translations: [Supervision of high risk , unspecified, third trimester] Onset: 5 Episodic Other complications of (1 source) Supervision of high risk , unspecified, unspecified trimester; Translations: [Supervision of high risk , unspecified, unspecified trimester] Onset: 5 Episodic Other female genital disorders (2 sources) Pruritus of vagina; Translations: [Other specified noninflammatory disorders of vagina] 02-18-2024 Episodic Other female genital disorders (2 sources) Other specified noninflammatory disorders of vagina; Translations: [Other specified noninflammatory disorders of vagina] Onset: 4 Episodic Other and delivery including normal (20 sources) Supervision of other normal ; Translations: [] Onset: 5 12-02-2020 Episodic Comment on above: [id number] [facility]WIN [facility]! [facility] : Brennan Salinas Spouse: Irvin bell carrier, ge netic and ntd screen, nl anatomy genetic- low risk fe male, carrier and NTD, nl anatomy GBS neg, declines ca rrier, genetic and ntd screen, nl anatomy Other screening for suspected conditions (not mental disorders or infectious disease) (12 sources) Patient encounter status; Translations: [Encounter for screening for other genetic defects] Onset: 5 09-07-2024 Episodic Comment on above: No PA needed for NIP T per availity but refer to individual policy Residual codes; unclassified (12 sources) Carrier of cystic fibrosis gene mutation; Translations: [Cystic fibrosis carrier] 12-02-2020 Episodic Comment on above: positive car rier Residual codes; unclassified (12 sources) Gestation period, 37 weeks; Translations: [37 weeks gestation of ] 12-02-2020 Episodic Comment on above: COVID test ordered ([facility] 11/01 at 2:00pm) Residual codes; unclassified (12 sources) History of vaccination; Translations: [Personal history of other drug therapy] 12-02-2020 Episodic Comment on above: 2/3/21 Residual codes; unclassified (12 sources) Family history of cystic fibrosis; Translations: [Family history of other endocrine, nutritional and metabolic diseases] 12-02-2020 Episodic Comment on above: Prior CF marshall ier. Residual codes; unclassified (1 source) Cystic fibrosis carrier; Translations: [Cystic fibrosis carrier] Onset: 5 Episodic Residual codes; unclassified (1 source) 37 weeks gestation of ; Translations: [37 weeks gestation of ] Onset: 5 Episodic Residual codes; unclassified (1 source) 36 weeks gestation of ; Translations: [36 weeks gestation of ] Onset: 5 Episodic Past or Other Problems Problem Classification Problem Date Documented Da te Episodic/Chronic Residual codes; unclassified (1 source) 13 weeks gestation of ; Translations: [13 weeks gestation of ] Onset: 08-07-2024 Episodic Results Test Name Value Interpretation Reference Range Facility Lubrication Servicer Office Visit Reporton 02-09-2025 Lubrication Servicer Office Visit Report [facility] [address], [address] [place] [address] OFFICE VISIT Date of Service: 02/09/25 MR#: [id number] Acct: [id number] Name: MARITZA REN COREY Rep #: [id number] 3 : 1990 Provider: KEVIN Giordano ams Age/Sex: 34/F Location: [facility] Status: Signed Intake Vital Signs 01/02/25 11:15 02/02/25 11:47 02/09/25 09:41 Height 5 ft 3 in 5 ft 3 in 5 ft 3 in Weight: 180 lb 5 oz BMI 31.9 BP 95/63 Intake Visit Reasons: 39wk ob * due date 02/11 Chief Complaint: 39 Week OB Director Of Institutional Sales Required: No Is patient in pain?: No Allergies No Known Allergies Allergy (Verified 02/09/25 09:42) Medications ???Medication ???Instructions ???Recorded ???Confirmed ???Type multivitamin no.47-iron fum 27 cap PO 06/29/24 02/09/25 History mg-folate no.1 1 mg-dha 300 mg capsule (PNV-DHA) benzocaine-benzetho nium 20 %-0.2 % 1 spray topical .PRN #78 grams 0 02/09/25 02/09/25 Rx topical aerosol (Dermoplast First Aid) Last Menstrual Period: 05/07/24 Zika: Zika virus screening: Negative : No PFSH PFSH Surgical History H/O wisdom tooth extraction Family History Father Cancer, Onset Age: 54 multiple myeloma Grandfather Cancer, Onset Age: 70 Paternal- Lymphoma Mother Thyroid disorder, Onset Age: 40 hypothyroidism Grandmother Hypertension, Onset Age: 50 Maternal Social History adopted: No household members: spouse number of children: 3 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 current occupational exposures/hazards: No pets and animals: Yes pets and animals: dog(s) history of recent travel: No sexually active: Yes Smoking Status: Never smoker second hand exposure: No alcohol intake: never substance use type: does not use well-balanced diet: daily or most days caffeine: Yes Type: tea Number of servings: 2 eating out: 1-3 times/week during the past year weight has: remained stable what type of physical activity do you participate in: none frequency: does not exercise eron/adventist: Ep[employer]opalian seatbelt use: always do you feel safe at home: Yes 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 Date Name GA/Weeks Outcome Route Bth Weight Infant Gen Labor Lgth Anesthesia Del Locatn Provider FOB Unknown 12/06/2014 Brad 41 live - full term 8lbs 7oz Male 12 hours epidural [facility] Leanna Irvin Unknown 03/30/2016 Brennan 39 live - full term 8lbs 1oz Male 4hours epi dural [facility] Cadence Irvin 10/23/20 Shea 37 live - full term 6#7oz Female epidural [facility] S EM Irvin Delivery Date: Last Updated by: Zelda Bates no complications; + GBS tx in labor with PCN Delivery Date: Last Updated by: Zelda Bates no complication; GBS + tx with PCN in labor Delivery Date: 10/23/20 Last Updated by: Zelda Bates PROM HPI 39wk ob * due date 02/11 Details: MARITZA REN is a 34 year old who presents for routine OB visit. OB Visit [facility] Calculator Estimated Delivery Date Method Current WG Current Estimate 02/11/25 LMP (Certain) 39w 5d Other Estimates 02/08/25 Ultrasound #1 40w 1d Expected Delivery Route/Plan Labor Preferences- CB/BF classes: no labor support person: Irvin labor intervention preferences: [] pain management options preferred: epidural cut cord/dad catch: NO : yes PP control planned: discussed discussed possible routes of delivery and associated risks: [] special requests: [] Specific Issue/Plans Covid status: [] Flu vaccine: [] Tdap vaccine: declines Rhogam: na LARC form signed: yes Problem list reviewed and updated with the most current plan of care details and appropriate orders placed. Relevant counseling for the gestational age provided. Continue routine care and follow up unless otherwise noted in visit notes/problem list details Initial Weight: Not Recorded Date -???-???-???-???-?? ?-???-???-???-???-? ??-???-???- EGA Weight BP Urine Prot -???-???-???-???-?? ?-???-???-???-???-? ??-???-???- Glucose FHR FuHt Pres Dilation -???-???-???-???-?? ?-???-???-???-???-? ??-???-???- Effaced St Visit Note 07/06/24 -???-???-???-???-?? ?-???-???-???-???-? ??-???-???- 8w 4d 153 lb 8 oz 118/72 -???-???-???-???-?? ?-???-???-???-???-? ??-???-???- 175 -???-???-???-???-?? ?-???-???-???-???-? ??-???-???- KW (more content not included)... Normal [facility] - Chemistry and C hemistry - challengeOrdered By: Yazmin Esposito on 02-02-2025 Glucose Ql (U) Negative [facility] - UrinalysisOrder ed By: Yazmin Esposito on 02-02-2025 Protein Ql (U) Negative [facility] Lubrication Servicer Office Visit Reporton 02-02-2025 Lubrication Servicer Office Visit Report [facility] [address], [address] [place] [address] OFFICE VISIT Date of Service: 02/02/25 MR#: [id number] Acct: [id number] Name: MARITZA REN COREY Rep #: [id number] 5 : 1990 Provider: KEVIN iniguez Age/Sex: 34/F Location: [facility] [place] [place] Status: Signed Intake Vital Signs 01/02/25 11:15 01/25/25 13:34 02/02/25 11:47 02/02/25 11:47 Height 5 ft 3 in 5 ft 3 in 5 ft 3 in 5 ft 3 in Weight: 181 lb BMI 32.1 BP 107/67 Intake Visit Reasons: 38wk ob Director Of Institutional Sales Required: No Is patient in pain?: No Allergies No Known Allergies Allergy (Verified 02/02/25 11:47) Medications ???Medication ???Instructions ???Recorded ???Confirmed ???Type multivitamin no.47-iron fum 27 cap PO 06/29/24 02/02/25 History mg-folate no.1 1 mg-dha 300 mg capsule (PNV-DHA) Last Menstrual Period: 05/07/24 Zika: Zika virus screening: Negative : No Have you fallen in the past year?: No PFSH PFSH Surgical History H/O wisdom tooth extraction Family History Father Cancer, Onset Age: 54 multiple myeloma Grandfather Cancer, Onset Age: 70 Paternal- Lymphoma Mother Thyroid disorder, Onset Age: 40 hypothyroidism Grandmother Hypertension, Onset Age: 50 Maternal Social History adopted: No household members: spouse number of children: 3 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 current occupational exposures/hazards: No pets and animals: Yes pets and animals: dog(s) history of recent travel: No sexually active: Yes Smoking Status: Never smoker second hand exposure: No alcohol intake: never substance use type: does not use well-balanced diet: daily or most days caffeine: Yes Type: tea Number of servings: 2 eating out: 1-3 times/week during the past year weight has: remained stable what type of physical activity do you participate in: none frequency: does not exercise eron/adventist: Episcopalian seatbelt use: always do you feel safe at home: Yes additional social history: - Irvin- Ken History 4 Elective abortions Hx Para 3 Spontaneous abortions Hx # Term Pregnancies Ectopic pregnancies Hx # Pregnancies Multiple births # of living children 3 Past Pregnancies Del. Date Name GA/Weeks Outcome Route Bth Weight Gen Labor Lgth Anesthesia Del Locatn Provider FOB Unknown 12/06/2014 Brad 41 live - full term 8lbs 7oz Male 12 hours epidural [facility] Leanna Irvin Unknown 03/30/2016 Brennan 39 live - full term 8lbs 1oz Male 4hours epi dural [facility] Cadence Irvin 10/23/20 Shea 37 live - full term 6#7oz Female epidural [facility] S EM Irvin Delivery Date: Last Updated by: Zelda Bates no complications; + GBS tx in labor with PCN Delivery Date: Last Updated by: Zelda Bates no complication; GBS + tx with PCN in labor Delivery Date: 10/23/20 Last Updated by: Zelda Bates PROM HPI 38wk ob Details: MARITZA REN is a 34 year old who presents for routine OB visit. OB Visit ASHWIN Calculator Estimated Delivery Date Method Current WG Current Estimate 02/11/25 LMP (Certain) 38w 5d Other Estimates 02/08/25 Ultrasound #1 39w 1d Expected Delivery Route/Plan Labor Preferences- CB/BF classes: no labor support person: Irvin labor intervention preferences: [] pain management options preferred: epidural cut cord/dad catch: NO : yes PP control planned: discussed discussed possible routes of delivery and associated risks: [] special requests: [] Specific Issue/Plans Covid status: [] Flu vaccine: [] Tdap vaccine: declines Rhogam: na LARC form signed: yes Problem list reviewed and updated with the most current plan of care details and appropriate orders placed. Relevant counseling for the gestational age provided. Continue routine care and follow up unless otherwise noted in visit notes/problem list details Initial Weight: Not Recorded Date -???-???-???-???-?? ?-???-???-???-???-? ??-???-???- EGA Weight BP Urine Prot -???-???-???-???-?? ?-???-???-???-???-? ??-???-???- Glucose FHR FuHt Pres Dilation -???-???-???-???-?? ?-???-???-???-???-? ??-???-???- Effaced St Visit Note 07/06/24 -???-???-???-???-?? ?-???-???-???-???-? ??-???-???- 8w 4d 153 lb 8 oz 118/72 -???-???-???-???-?? ?-???-???-???-???-? ??-???-???- 175 -???-???-???-???-?? ?-???-???-???-???-? ??-???-???- KW- CRL cons with dates. undecided on NIPT. requesting toxoplasmosis testing [place]. 08/07/24 -???-???-???-???-?? ?-???-???-?? (more content not included)... Normal [facility] Laboratory - Chemistry and C hemistry - challengeOrdered By: Ricardo Singh on 01-25-2025 Glucose Ql (U) Negative [facility] - UrinalysisOrder ed By: Ricardo Singh on 01-25-2025 Protein Ql (U) Negative [facility] Lubrication Servicer Office Visit Reporton 01-25-2025 Lubrication Servicer Office Visit Report [facility]'s [address], [address] [place] [address] OFFICE VISIT Date of Service: 01/25/25 MR#: [id number] Acct: [id number] Name: MARITZA REN COREY Rep #: [id number] 3 : 1990 Provider: KEVIN Giordano [facility] Age/Sex: 34/F Location: [facility] Status: Signed Intake Vital Signs 01/02/25 11:15 01/15/25 10:18 01/25/25 13:34 Height 5 ft 3 in 5 ft 3 in 5 ft 3 in Weight: 183 lb 4 oz BMI 32.4 BP 109/69 Intake Visit Reasons: 37wk ob Chief Complaint: 37wk ob Director Of Institutional Sales Required: No Is patient in pain?: No Allergies No Known Allergies Allergy (Verified 01/25/25 13:32) Medications ???Medication ???Instructions ???Recorded ???Confirmed ???Type multivitamin no.47-iron fum 27 cap PO 06/29/24 01/25/25 History mg-folate no.1 1 mg-dha 300 mg capsule (PNV-DHA) Last Menstrual Period: 05/07/24 : No PFSH PFSH Surgical History H/O wisdom tooth extraction Family History Father Cancer, Onset Age: 54 multiple myeloma Grandfather Cancer, Onset Age: 70 Paternal- Lymphoma Mother Thyroid disorder, Onset Age: 40 hypothyroidism Grandmother Hypertension, Onset Age: 50 Maternal Social History adopted: No household members: spouse number of children: 3 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 current occupational exposures/hazards: No pets and animals: Yes pets and animals: dog(s) history of recent travel: No sexually active: Yes Smoking Status: Never smoker second hand exposure: No alcohol intake: never substance use type: does not use well-balanced diet: daily or most days caffeine: Yes Type: tea Number of servings: 2 eating out: 1-3 times/week during the past year weight has: remained stable what type of physical activity do you participate in: none frequency: does not exercise eron/adventist: Episcopalian seatbelt use: always do you feel safe at home: Yes 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 Date Name GA/Weeks Outcome Route Bth Weight Gen Labor Lgth Anesthesia Del Locatn Provider FOB Unknown 12/06/2014 Brad 41 live - full term 8lbs 7oz Male 12 hours epidural [facility] Ram Irvin Unknown 03/30/2016 Brennan 39 live - full term 8lbs 1oz Male 4hours epi dural [facility] Marcsharony Irvin 10/23/20 Shea 37 live - full term 6#7oz Female epidural [facility] S EM Irvin Delivery Date: Last Updated by: Zelda Bates no complications; + GBS tx in labor with PCN Delivery Date: Last Updated by: Zelda Bates no complication; GBS + tx with PCN in labor Delivery Date: 10/23/20 Last Updated by: Zelda aBtes PROM HPI 37wk ob Details: MARITZA REN is a 34 year old who presents for routine OB visit. OB Visit ASHWIN Calculator Estimated Delivery Date Method Current WG Current Estimate 02/11/25 LMP (Certain) 37w 4d Other Estimates 02/08/25 Ultrasound #1 38w 0d Expected Delivery Route/Plan Labor Preferences- CB/BF classes: no labor support person: Irvin labor intervention preferences: [] pain management options preferred: epidural cut cord/dad catch: NO : yes PP control planned: discussed discussed possible routes of delivery and associated risks: [] special requests: [] Specific Issue/Plans Covid status: [] Flu vaccine: [] Tdap vaccine: declines Rhogam: na LARC form signed: yes Problem list reviewed and updated with the most current plan of care details and appropriate orders placed. Relevant counseling for the gestational age provided. Continue routine care and follow up unless otherwise noted in visit notes/problem list details Initial Weight: Not Recorded Date -???-???-???-???-?? ?-???-???-???-???-? ??-???-???- EGA Weight BP Urine Prot -???-???-???-???-?? ?-???-???-???-???-? ??-???-???- Glucose FHR FuHt Pres Dilation -???-???-???-???-?? ?-???-???-???-???-? ??-???-???- Effaced St Visit Note 07/06/24 -???-???-???-???-?? ?-???-???-???-???-? ??-???-???- 8w 4d 153 lb 8 oz 118/72 -???-???-???-???-?? ?-???-???-???-???-? ??-???-???- 175 -???-???-???-???-?? ?-???-???-???-???-? ??-???-???- KW- CRL cons with dates. undecided on NIPT. requesting toxoplasmosis testing due to [place]. 08/07/24 -???-???-???-???-?? ?-???-???-???-???-? ??-???-???- 13w 1d 157 lb 105/72 Negative -???-???-???-???-?? ?-???- (more content not included)... Normal [facility] Rule out Beta Strep (Grp. B) on 01-17-2025 ARCHANA Group B Beta Streptococcus is not isolated. Normal [facility] Comment on above: Performed By: #### L 7000.1800, M100.2200, [id number] #### [facility] [address] [place], [address] Laboratory - Chemistry and C hemistry - challengeOrdered By: Ricardo Singh on 01-15-2025 Glucose Ql (U) Negative [facility] - UrinalysisOrder ed By: Ricardo Singh on 01-15-2025 Protein Ql (U) Negative [facility] Lubrication Servicer Office Visit Reporton 01-15-2025 Lubrication Servicer Office Visit Report [facility]'s [address], [address] [place] [address] OFFICE VISIT Date of Service: 01/15/25 MR#: [id number] Acct: [id number] Name: MARITZA REN COREY Rep #: [id number] 7 : 1990 Provider: KEVIN Giordano ams Age/Sex: 34/F Location: [facility] Status: Signed Intake Vital Signs 11/14/24 10:15 01/02/25 11:15 01/15/25 10:18 Height 5 ft 3 in 5 ft 3 in 5 ft 3 in Weight: 180 lb BMI 31.8 BP 100/61 Blood Pressure Location Rt brachial Position Sitting Pulse 73 Pulse Source Monitor Intake Visit Reasons: 36wk ob Director Of Institutional Sales Required: No Accompanied by: Self Is patient in pain?: No Feel stressed/tense/nerv ous/anxious/difficu lty sleeping: not at all Allergies No Known Allergies Allergy (Verified 01/15/25 10:22) Medications ???Medication ???Instructions ???Recorded ???Confirmed ???Type multivitamin no.47-iron fum 27 cap PO 06/29/24 01/15/25 History mg-folate no.1 1 mg-dha 300 mg capsule (PNV-DHA) Last Menstrual Period: 05/07/24 Zika: Zika virus screening: Negative : No PFSH PFSH Surgical History H/O wisdom tooth extraction Family History Father Cancer, Onset Age: 54 multiple myeloma Grandfather Cancer, Onset Age: 70 Paternal- Lymphoma Mother Thyroid disorder, Onset Age: 40 hypothyroidism Grandmother Hypertension, Onset Age: 50 Maternal Social History adopted: No household members: spouse number of children: 3 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 current occupational exposures/hazards: No pets and animals: Yes pets and animals: dog(s) history of recent travel: No sexually active: Yes Smoking Status: Never smoker second hand exposure: No alcohol intake: never substance use type: does not use well-balanced diet: daily or most days caffeine: Yes Type: tea Number of servings: 2 eating out: 1-3 times/week during the past year weight has: remained stable what type of physical activity do you participate in: none frequency: does not exercise eron/adventist: Episcopalian seatbelt use: always do you feel safe at home: Yes 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 Date Name GA/Weeks Outcome Route Bth Weight Gen Labor Lgth Anesthesia Del Locatn Provider FOB Unknown 12/06/2014 Brad 41 live - full term 8lbs 7oz Male 12 hours epidural [facility] Leanna Irvin Unknown 03/30/2016 Brennan 39 live - full term 8lbs 1oz Male 4hours epi dural [facility] Cadence Irvin 10/23/20 Shea 37 live - full term 6#7oz Female epidural [facility] Cleve EM Irvin Delivery Date: Last Updated by: Zelda Bates no complications; + GBS tx in labor with PCN Delivery Date: Last Updated by: Zelda Bates no complication; GBS + tx with PCN in labor Delivery Date: 10/23/20 Last Updated by: Zelda Bates PROM HPI 36wk ob Details: MARITZA REN is a 34 year old who presents for routine OB visit. OB Visit ASHWIN Calculator Estimated Delivery Date Method Current WG Current Estimate 02/11/25 LMP (Certain) 36w 1d Other Estimates 02/08/25 Ultrasound #1 36w 4d Expected Delivery Route/Plan Labor Preferences- CB/BF classes: no labor support person: Irvin labor intervention preferences: [] pain management options preferred: epidural cut cord/dad catch: NO : yes PP control planned: discussed discussed possible routes of delivery and associated risks: [] special requests: [] Specific Issue/Plans Covid status: [] Flu vaccine: [] Tdap vaccine: declines Rhogam: na LARC form signed: yes Problem list reviewed and updated with the most current plan of care details and appropriate orders placed. Relevant counseling for the gestational age provided. Continue routine care and follow up unless otherwise noted in visit notes/problem list details Initial Weight: Not Recorded Date -???-???-???-???-?? ?-???-???-???-???-? ??-???-???- EGA Weight BP Urine Prot -???-???-???-???-?? ?-???-???-???-???-? ??-???-???- Glucose FHR FuHt Pres Dilation -???-???-???-???-?? ?-???-???-???-???-? ??-???-???- Effaced St Visit Note 07/06/24 -???-???-???-???-?? ?-???-???-???-???-? ??-???-???- 8w 4d 153 lb 8 oz 118/72 -???-???-???-???-?? ?-???-???-???-???-? ??-???-???- 175 -???-???-???-???-?? ?-???-???-???-???-? ??-???-???- KW- CRL cons wi (more content not included)... Normal [facility] Screening beta-hemolytic Str eptococcus cultureOrdered By: Ricardo Singh on 01-15-2025 Beta-hemolytic Streptococcus culture Group B Beta Streptococcus is not isolated. [facility] - Chemistry and C hemistry - challengeOrdered By: Charlene Chandler on 01-02-2025 Glucose Ql (U) Negative [facility] - UrinalysisOrder ed By: Charlene Chandler on 01-02-2025 Protein Ql (U) Negative [facility] - Chemistry and C hemistry - challengeOrdered By: Neyda Corley on 12-18-2024 Glucose Ql (U) Negative [facility] - UrinalysisOrder ed By: Neyda Corley on 12-18-2024 Protein Ql (U) Negative [facility] Lubrication Servicer Office Visit Reporton 12-18-2024 Lubrication Servicer Office Visit Report [facility]'s [address], [address] [place] [address] OFFICE VISIT Date of Service: 12/18/24 MR#: [id number] Acct: [id number] Name: MARITZA REN COREY Rep #: [id number] 2 : 1990 Provider: DEO ruiz Age/Sex: 34/F Location: [facility] Status: Signed Intake Vital Signs 10/19/24 09:29 12/07/24 09:16 12/18/24 10:23 Height 5 ft 3 in 5 ft 3 in 5 ft 3 in Weight: 177 lb 6 oz BMI 31.4 BP 98/60 Intake Visit Reasons: 32 wk ob Chief Complaint: 32 Week OB Director Of Institutional Sales Required: No Is patient in pain?: No Allergies No Known Allergies Allergy (Verified 12/18/24 10:23) Medications ???Medication ???Instructions ???Recorded ???Confirmed ???Type multivitamin no.47-iron fum 27 cap PO 06/29/24 12/18/24 History mg-folate no.1 1 mg-dha 300 mg capsule (PNV-DHA) Last Menstrual Period: 05/07/24 Zika: Zika virus screening: Negative : No PFSH PFSH Surgical History H/O wisdom tooth extraction Family History Father Cancer, Onset Age: 54 multiple myeloma Grandfather Cancer, Onset Age: 70 Paternal- Lymphoma Mother Thyroid disorder, Onset Age: 40 hypothyroidism Grandmother Hypertension, Onset Age: 50 Maternal Social History adopted: No household members: spouse number of children: 3 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 current occupational exposures/hazards: No pets and animals: Yes pets and animals: dog(s) history of recent travel: No sexually active: Yes Smoking Status: Never smoker second hand exposure: No alcohol intake: never substance use type: does not use well-balanced diet: daily or most days caffeine: Yes Type: tea Number of servings: 2 eating out: 1-3 times/week during the past year weight has: remained stable what type of physical activity do you participate in: none frequency: does not exercise eron/adventist: Episcopalian seatbelt use: always do you feel safe at home: Yes 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 Date Name GA/Weeks Outcome Route Bth Weight Infant Gen Labor Lgth Anesthesia Del Locatn Provider FOB Unknown 12/06/2014 Brad 41 live - full term 8lbs 7oz Male 12 hours epidural [facility] Leanna Irvin Unknown 03/30/2016 Brennan 39 live - full term 8lbs 1oz Male 4hours epi dural [facility] Cadence Irvin 10/23/20 Shea 37 live - full term 6#7oz Female epidural [facility] S EM Irvin Delivery Date: Last Updated by: Zelda Bates no complications; + GBS tx in labor with PCN Delivery Date: Last Updated by: Zelda Bates no complication; GBS + tx with PCN in labor Delivery Date: 10/23/20 Last Updated by: Zelda Bates PROM HPI 32 wk ob Details: MARITZA REN is a 34 year old who presents for routine OB visit. OB Visit ASHWIN Calculator Estimated Delivery Date Method Current WG Current Estimate 02/11/25 LMP (Certain) 32w 1d Other Estimates 02/08/25 Ultrasound #1 32w 4d Expected Delivery Route/Plan Labor Preferences- CB/BF classes: no labor support person: Irvin labor intervention preferences: [] pain management options preferred: epidural cut cord/dad catch: NO : yes PP control planned: discussed discussed possible routes of delivery and associated risks: [] special requests: [] Specific Issue/Plans Covid status: [] Flu vaccine: [] Tdap vaccine: declines Rhogam: na LARC form signed: yes Problem list reviewed and updated with the most current plan of care details and appropriate orders placed. Relevant counseling for the gestational age provided. Continue routine care and follow up unless otherwise noted in visit notes/problem list details Initial Weight: Not Recorded Date -???-???-???-???-?? ?-???-???-???-???-? ??-???-???- EGA Weight BP Urine Prot -???-???-???-???-?? ?-???-???-???-???-? ??-???-???- Glucose FHR FuHt Pres Dilation -???-???-???-???-?? ?-???-???-???-???-? ??-???-???- Effaced St Visit Note 07/06/24 -???-???-???-???-?? ?-???-???-???-???-? ??-???-???- 8w 4d 153 lb 8 oz 118/72 -???-???-???-???-?? ?-???-???-???-???-? ??-???-???- 175 -???-???-???-???-?? ?-???-???-???-???-? ??-???-???- KW- CRL cons with dates. undecided on NIPT. requesting toxoplasmosis testing [place]. 08/07/24 -???-???-???-???-?? ?-???-???-???-???-? ??-???-?? (more content not included)... Normal [facility] Laboratory - Chemistry and C hemistry - challengeOrdered By: Lily Vila on 12-07-2024 Glucose Ql (U) Negative [facility] - UrinalysisOrder ed By: Lily Vila on 12-07-2024 Protein Ql (U) Negative [facility] Lubrication Servicer Office Visit Reporton 12-07-2024 Lubrication Servicer Office Visit Report [facility] [address], [address] [place] [address] OFFICE VISIT Date of Service: 12/07/24 MR#: [id number] Acct: [id number] Name: MARITZA REN COREY Rep #: [id number] 5 : 1990 Provider: Dr. Lily gomez MD Age/Sex: 34/F Location: [facility] Status: Signed Intake Vital Signs 10/19/24 09:29 11/14/24 10:15 12/07/24 09:16 Height 5 ft 3 in 5 ft 3 in 5 ft 3 in Weight: 180 lb 8 oz BMI 31.9 BP 103/66 Intake Visit Reasons: 30 wk ob Director Of Institutional Sales Required: No Is patient in pain?: No Allergies No Known Allergies Allergy (Verified 12/07/24 09:17) Medications ???Medication ???Instructions ???Recorded ???Confirmed ???Type multivitamin no.47-iron fum 27 cap PO 06/29/24 12/07/24 History mg-folate no.1 1 mg-dha 300 mg capsule (PNV-DHA) Last Menstrual Period: 10/20/24 Zika: Zika virus screening: Negative : No PFSH PFSH Surgical History H/O wisdom tooth extraction Family History Father Cancer, Onset Age: 54 multiple myeloma Grandfather Cancer, Onset Age: 70 Paternal- Lymphoma Mother Thyroid disorder, Onset Age: 40 hypothyroidism Grandmother Hypertension, Onset Age: 50 Maternal Social History adopted: No household members: spouse number of children: 3 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 current occupational exposures/hazards: No pets and animals: Yes pets and animals: dog(s) history of recent travel: No sexually active: Yes Smoking Status: Never smoker second hand exposure: No alcohol intake: never substance use type: does not use well-balanced diet: daily or most days caffeine: Yes Type: tea Number of servings: 2 eating out: 1-3 times/week during the past year weight has: remained stable what type of physical activity do you participate in: none frequency: does not exercise eron/adventist: Episcopalian seatbelt use: always do you feel safe at home: Yes 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 Date Name GA/Weeks Outcome Route Bth Weight Gen Labor Lgth Anesthesia Del Locatn Provider FOB Unknown 12/06/2014 Brad 41 live - full term 8lbs 7oz Male 12 hours epidural [facility] Leanna Irvin Unknown 03/30/2016 Brennan 39 live - full term 8lbs 1oz Male 4hours epi dural [facility] Cadence Irvin 10/23/20 Shea 37 live - full term 6#7oz Female epidural [facility] S EM Irvin Delivery Date: Last Updated by: Zelda Bates no complications; + GBS tx in labor with PCN Delivery Date: Last Updated by: Zelda Bates no complication; GBS + tx with PCN in labor Delivery Date: 10/23/20 Last Updated by: Zelda Bates PROM HPI 30 wk ob Details: MARITZA REN is a 34 year old who presents for routine OB visit. OB Visit ASHWIN Calculator Estimated Delivery Date Method Current WG Current Estimate 02/11/25 LMP (Certain) 30w 4d Other Estimates 02/08/25 Ultrasound #1 31w 0d Expected Delivery Route/Plan Labor Preferences- CB/BF classes: no labor support person: Irvin labor intervention preferences: [] pain management options preferred: epidural cut cord/dad catch: NO : yes PP control planned: discussed discussed possible routes of delivery and associated risks: [] special requests: [] Specific Issue/Plans Covid status: [] Flu vaccine: [] Tdap vaccine: [] Rhogam: na LARC form signed: yes Problem list reviewed and updated with the most current plan of care details and appropriate orders placed. Relevant counseling for the gestational age provided. Continue routine care and follow up unless otherwise noted in visit notes/problem list details Initial Weight: Not Recorded Date -???-???-???-???-?? ?-???-???-???-???-? ??-???-???- EGA Weight BP Urine Prot -???-???-???-???-?? ?-???-???-???-???-? ??-???-???- Glucose FHR FuHt Pres Dilation -???-???-???-???-?? ?-???-???-???-???-? ??-???-???- Effaced St Visit Note 07/06/24 -???-???-???-???-?? ?-???-???-???-???-? ??-???-???- 8w 4d 153 lb 8 oz 118/72 -???-???-???-???-?? ?-???-???-???-???-? ??-???-???- 175 -???-???-???-???-?? ?-???-???-???-???-? ??-???-???- KW- CRL cons with dates. undecided on NIPT. requesting toxoplasmosis testing due [place]. 08/07/24 -???-???-???-???-?? ?-???-???-???-???-? ??-???-???- 13w 1d 157 lb 105/72 Negat (more content not included)... Normal [facility] Absolute lymphocyte countOrd ered By: Charlene Jacksonraymundo on 11-14-2024 Lymphocytes Auto (Unsp spec) [#/Vol] 1.36 10*3/uL 0.83-4.51 [facility] Absolute neutrophil countOrd ered By: Charlene Jacksonraymundo on 11-14-2024 Neutrophils (Bld) [#/Vol] 5.9 10*3/uL 2.0-7.7 [facility] Automated lymphocyte count a s percentage of total leukocytesOrdered By: Charlene Jacksonraymundo on 11-14-2024 Lymphocytes/100 WBC Auto (Unsp spec) 17.3 % Low 19-41 [facility] Basophil percentageOrdered B y: Charlene Jacksonraymundo on 11-14-2024 Basophils/100 WBC (Bld) 0.4 % 0-1 [facility] CBC W/Diff, Automatedon 10-18 Absolute Lymph 1.36 X10 3/uL Normal 0.83-4.51 [facility] Comment on above: Performed By: #### L 7000.1800, M100.2200, L7400.0280 #### [facility] [address] [place], [address] Absolute Neut 5.9 X10 3/uL Normal 2.0-7.7 [facility] Comment on above: Performed By: #### L 7000.1800, M100.2200, L7400.0280 #### [facility] [address] [place], [address] Basophils/100 WBC (Bld) 0.4 % Normal 0-1 [facility] Comment on above: Performed By: #### L 7000.1800, M100.2200, [id number] #### [facility] [address] [place], [address] Eosinophils/100 WBC (Bld) 1.1 % Normal 0-5 [facility] Comment on above: Performed By: #### L 7000.1800, M100.2200, [id number] #### [facility] [address] [place], [address] Erythrocyte distribution width (RBC) [Ratio] 13.2 % Normal 11.6-14.6 [facility] Comment on above: Performed By: #### L 7000.1800, M100.2200, [id number] #### [facility] [address] [place], [address] Hematocrit (Bld) [Volume fraction] 35.4 % Low 37-47 [facility] Comment on above: Performed By: #### L 7000.1800, M100.2200, [id number] #### [facility] [address] [place], [address] Hemoglobin (Bld) [Mass/Vol] 12.1 g/dL Normal 12.0-15.0 [facility] Comment on above: Performed By: #### L 7000.1800, M100.2200, [id number] #### [facility] [address] [place], [address] IG% 0.900 Normal 0.0-0.9 [facility] Comment on above: Result Comment: IG% - Immature Granulocytes (promyelocytes, myelocytes and metamyelocytes) > 1% indicates that a LEFT SHIFT is Present. Performed By: #### L 7000.1800, M100.2200, [id number] #### [facility] [address] [place], [address] Lymphocytes/100 WBC (Bld) 17.3 % Low 19-41 [facility] Comment on above: Performed By: #### L 7000.1800, M100.2200, [id number] #### [facility] [address] [place], [address] MCH (RBC) [Entitic mass] 29.7 pg Normal 27.0-32.0 [facility] Comment on above: Performed By: #### L 7000.1800, M100.2200, [id number] #### [facility] [address] [place], [address] MCHC (RBC) [Mass/Vol] 34.2 g/dL Normal 32-36 [facility] Comment on above: Performed By: #### L 7000.1800, M100.2200, [id number] #### [facility] [address] [place], [address] MCV (RBC) [Entitic vol] 87.0 fL Normal 81-99 [facility] Comment on above: Performed By: #### L 7000.1800, M100.2200, [id number] #### [facility] [address] [place], [address] Monocytes/100 WBC (Bld) 5.6 % Normal 0-10 [facility] Comment on above: Performed By: #### L 7000.1800, M100.2200, L7400.0280 #### [facility] [address] [place], [address] Neutrophils/100 WBC (Bld) 74.7 % High 47-70 [facility] Comment on above: Performed By: #### L 7000.1800, M100.2200, [id number] #### [facility] [address] [place], [address] Nucleated RBC (Bld) [#/Vol] 0 10*3/uL Normal 0-5 [facility] Comment on above: Performed By: #### L 7000.1800, M100.2200, [id number] #### [facility] [address] [place], [address] Platelet mean volume (Bld) [Entitic vol] 8.8 fL Normal 6.2-12.0 [facility] Comment on above: Performed By: #### L 7000.1800, M100.2200, [id number] #### [facility] [address] [place], [address] Platelets (Bld) [#/Vol] 207 10*3/uL Normal 150-450 [facility] Comment on above: Performed By: #### L 7000.1800, M100.2200, [id number] #### [facility] [address] [place], [address] RBC (Bld) [#/Vol] 4.07 10*6/uL Low 4.2-5.4 [facility] Comment on above: Performed By: #### L 7000.1800, M100.2200, [id number] #### [facility] [address] [place], [address] RDW SD 41.4 fl Normal 35.1-43.9 [facility] Comment on above: Performed By: #### L 7000.1800, M100.2200, [id number] #### [facility] [address] [place], [address] WBC (Bld) [#/Vol] 7.9 10*3/uL Normal 4.4-11.0 [facility] Comment on above: Performed By: #### L 7000.1800, M100.2200, [id number] #### [facility] [address] [place], [place], [address] Eosinophil percentageOrdered By: Charlene Chandler on 11-14-2024 Eosinophils/100 WBC (Bld) 1.1 % 0-5 [facility] Erythrocyte distribution wid th ratioOrdered By: Charlene Chandler on 11-14-2024 Erythrocyte distribution width (RBC) [Ratio] 13.2 % 11.6-14.6 [facility] Erythrocyte distribution wid th standard deviationOrdered By: Charlene Chandler on 11-14-2024 Erythrocyte distribution width (RBC) [Ratio] 41.4 fl 35.1-43.9 [facility] Glucose Challenge Gest 1H 50 sudarshan 11-14-2024 GLU GEST 50g 1H 80 mg/dL Normal 70-140 [facility] Comment on above: Performed By: #### L 7000.1800, M100.2200, L7400.0280 #### [facility] [address] [place], [address] Glucose measurement at 2 napoleon rs post-dose gestational glucose tolerance testOrdered By: Charlene Chandler on 11-14-2024 Glucose [Mass/Vol] 80 mg/dL 70-140 [facility] HIVon 11-14-2024 HIV Non-Reactive Normal Nonreactive [facility] Comment on above: Result Comment: Non- Reactive Reactive Repeatedly reactive samples must be confirmed according to CDC recommended confirmatory algorithms. The subresults for either HIVAG or AHIV can be used as an aid in the selection of the confirmation algorithm for reactive samples. Send out specimens with Reactive results to [facility] for confirmation. Order the HIV antibody detection and differentiation: lc#[id number] Performed By: #### L 7000.1800, M100.2200, L7400.0280 #### [facility] [address] [place], [address] Hematocrit Auto (Bld) [Volum e fraction]Ordered By: Charlene Chandler on 11-14-2024 Hematocrit (Bld) [Volume fraction] 35.4 % Low 37-47 [facility] Hemoglobin measurementOrdere d By: Charlene Chandler on 11-14-2024 Hemoglobin (Bld) [Mass/Vol] 12.1 g/dL 12.0-15.0 [facility] Immature granulocytes/100 WB C Auto (Bld)Ordered By: Charlene Chandler on 11-14-2024 Immature granulocytes/100 WBC (Bld) 0.900 % 0.0-0.9 [facility] Comment on above: IG% - Immature Granu locytes (promyelocytes, myelocytes and metamyelocytes) > 1% indicates that a LEFT SHIFT is Present. Laboratory - Chemistry and C hemistry - challengeOrdered By: Neyda Corley on 11-14-2024 Glucose Ql (U) Negative [facility] - UrinalysisOrder ed By: Neyda Corley on 11-14-2024 Protein Ql (U) Negative [facility] MCV (mean corpuscular volume ) determinationOrdered By: Charlene Chandler on 11-14-2024 MCV (RBC) [Entitic vol] 87.0 fL 81-99 [facility] Mean corpuscular hemoglobin (MCH) determinationOrdered By: Charlene Chandler on 11-14-2024 MCH (RBC) [Entitic mass] 29.7 pg 27.0-32.0 [facility] Mean corpuscular hemoglobin concentration (MCHC) determinationOrdered By: Charlene Chandler on 11-14-2024 MCHC (RBC) [Mass/Vol] 34.2 g/dL 32-36 [facility] Mean platelet volume determi nationOrdered By: Charlene Chandler on 11-14-2024 Platelet mean volume (Bld) [Entitic vol] 8.8 fL 6.2-12.0 [facility] Monocyte percentageOrdered B y: Charlene Chandler on 11-14-2024 Monocytes/100 WBC (Bld) 5.6 % 0-10 [facility] Neutrophil percentageOrdered By: Charlene Chandler on 11-14-2024 Neutrophils/100 WBC (Bld) 74.7 % High 47-70 [facility] No Panel InformationOrdered By: Charlene Chandler on 11-14-2024 HIV (1&2) Antibody Non-Reactive Nonreactive [facility] Comment on above: Non-ReactiveReactive Repeatedly reactive samples must be confirmed according to CDC recommended confirmatory algorithms. The subresults for either HIVAG or AHIV can be used as an aid in the selection of the confirmation algorithm for reactive samples.Send out specimens with Reactive results to [facility] for confirmation.Order the HIV antibody detection and differentiation: #[id number] Nucleated red blood cell per centageOrdered By: Charlene Chandler on 11-14-2024 Nucleated RBC/100 WBC (Bld) [Ratio] 0 % 0-5 [facility] [employer] Servicer Office Visit Reporton 11-14-2024 Lubrication Servicer Office Visit Report [facility]'[address], [address] [place] [address] OFFICE VISIT Date of Service: 11/14/24 MR#: [id number] Acct: [id number] Name: MARITZA REN COREY Rep #: [id number] 4 : 1990 Provider: DEO ruiz Age/Sex: 34/F Location: [facility] Status: Signed Intake Vital Signs 09/07/24 09:37 10/19/24 09:29 11/14/24 10:14 11/14/24 10:15 Height 5 ft 3 in 5 ft 3 in 5 ft 3 in 5 ft 3 in Weight: 173 lb 6 oz BMI 30.7 BP 96/60 Intake Visit Reasons: 27WK OB/GLUCOSE Director Of Institutional Sales Required: No Is patient in pain?: No Allergies No Known Allergies Allergy (Verified 11/14/24 10:15) Medications ???Medication ???Instructions ???Recorded ???Confirmed ???Type multivitamin no.47-iron fum 27 cap PO 06/29/24 11/14/24 History mg-folate no.1 1 mg-dha 300 mg capsule (PNV-DHA) Last Menstrual Period: 05/07/24 Zika: Zika virus screening: Negative : Yes PFSH PFSH Surgical History H/O wisdom tooth extraction Family History Father Cancer, Onset Age: 54 multiple myeloma Grandfather Cancer, Onset Age: 70 Paternal- Lymphoma Mother Thyroid disorder, Onset Age: 40 hypothyroidism Grandmother Hypertension, Onset Age: 50 Maternal Social History adopted: No household members: spouse number of children: 3 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 current occupational exposures/hazards: No pets and animals: Yes pets and animals: dog(s) history of recent travel: No sexually active: Yes Smoking Status: Never smoker second hand exposure: No alcohol intake: never substance use type: does not use well-balanced diet: daily or most days caffeine: Yes Type: tea Number of servings: 2 eating out: 1-3 times/week during the past year weight has: remained stable what type of physical activity do you participate in: none frequency: does not exercise eron/adventist: Episcopalian seatbelt use: always do you feel safe at home: Yes 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 Date Name GA/Weeks Outcome Route Bth Weight Infant Gen Labor Lgth Anesthesia Del Locatn Provider FOB Unknown 12/06/2014 Brad 41 live - full term 8lbs 7oz Male 12 hours epidural [facility] Ram Irvin Unknown 03/30/2016 Brennan 39 live - full term 8lbs 1oz Male 4hours epi dural [facility] Cadence Irvin 10/23/20 Shea 37 live - full term 6#7oz Female epidural [facility] S EM Irvin Delivery Date: Last Updated by: Zelda Bates no complications; + GBS tx in labor with PCN Delivery Date: Last Updated by: Zelda Bates no complication; GBS + tx with PCN in labor Delivery Date: 10/23/20 Last Updated by: Zelda Bates PROM HPI 27WK OB/GLUCOSE Details: MARITZA REN is a 34 year old who presents for routine OB visit. OB Visit ASHWIN Calculator Estimated Delivery Date Method Current WG Current Estimate 02/11/25 LMP (Certain) 27w 2d Other Estimates 02/08/25 Ultrasound #1 27w 5d Expected Delivery Route/Plan Labor Preferences- CB/BF classes: no labor support person: Irvin labor intervention preferences: [] pain management options preferred: epidural cut cord/dad catch: NO : yes PP control planned: discussed discussed possible routes of delivery and associated risks: [] special requests: [] Specific Issue/Plans Covid status: [] Flu vaccine: [] Tdap vaccine: [] Rhogam: na LARC form signed: yes Problem list reviewed and updated with the most current plan of care details and appropriate orders placed. Relevant counseling for the gestational age provided. Continue routine care and follow up unless otherwise noted in visit notes/problem list details Initial Weight: Not Recorded Date -???-???-???-???-?? ?-???-???-???-???-? ??-???-???- EGA Weight BP Urine Prot -???-???-???-???-?? ?-???-???-???-???-? ??-???-???- Glucose FHR FuHt Pres Dilation -???-???-???-???-?? ?-???-???-???-???-? ??-???-???- Effaced St Visit Note 07/06/24 -???-???-???-???-?? ?-???-???-???-???-? ??-???-???- 8w 4d 153 lb 8 oz 118/72 -???-???-???-???-?? ?-???-???-???-???-? ??-???-???- 175 -???-???-???-???-?? ?-???-???-???-???-? ??-???-???- KW- CRL cons with dates. undecided on NIPT. requesting toxoplasmosis testing due [place]. 08/07/24 -???-???-???-???-?? ?-???-???-???-???-? ??- (more content not included)... Normal [facility] Platelet countOrdered By: Davie Chandler on 11-14-2024 Platelets (Bld) [#/Vol] 207 10*3/uL 150-450 [facility] RBC Auto (Bld) [#/Vol]Ordere d By: Charlene Chandler on 11-14-2024 RBC (Bld) [#/Vol] 4.07 10*6/uL Low 4.2-5.4 [facility] Syphilis Antibodieson 2024 Syphilis Abs Non-Reactive Normal Nonreactive [facility] Comment on above: Performed By: #### L 7000.1800, M100.2200, L7400.0280 #### [facility] [address] [place], [address] White blood cell (WBC) count Ordered By: Charlene Chandler on 11-14-2024 WBC (Bld) [#/Vol] 7.9 10*3/uL 4.4-11.0 [facility] - Chemistry and C hemistry - challengeOrdered By: Charlene Chandler on 10-19-2024 Glucose Ql (U) Negative [facility] - UrinalysisOrder ed By: Charlene Chandler on 10-19-2024 Protein Ql (U) Negative [facility] Lubrication Servicer Office Visit Reporton 10-19-2024 Lubrication Servicer Office Visit Report [facility] [address], [address] [place] [address] OFFICE VISIT Date of Service: 10/19/24 MR#: [id number] Acct: [id number] Name: MARITZA REN COREY Rep #: [id number] : 1990 Provider: Dr. Charlene Lopez DO Age/Sex: 34/F Location: [facility] Status: Signed Intake Vital Signs 09/07/24 09:37 10/19/24 09:28 10/19/24 09:29 Height 5 ft 3 in 5 ft 3 in 5 ft 3 in Weight: 171 lb 4 oz BMI 30.3 BP 97/62 Intake Visit Reasons: 23WK OB (6wk since last per ) Director Of Institutional Sales Required: No Is patient in pain?: No Allergies No Known Allergies Allergy (Verified 10/19/24 09:28) Medications ???Medication ???Instructions ???Recorded ???Confirmed ???Type multivitamin no.47-iron fum 27 cap PO 06/29/24 10/19/24 History mg-folate no.1 1 mg-dha 300 mg capsule (PNV-DHA) Last Menstrual Period: 05/07/24 Zika: Zika virus screening: Negative : No PFSH PFSH Surgical History H/O wisdom tooth extraction Family History Father Cancer, Onset Age: 54 multiple myeloma Grandfather Cancer, Onset Age: 70 Paternal- Lymphoma Mother Thyroid disorder, Onset Age: 40 hypothyroidism Grandmother Hypertension, Onset Age: 50 Maternal Social History adopted: No household members: spouse number of children: 3 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 current occupational exposures/hazards: No pets and animals: Yes pets and animals: dog(s) history of recent travel: No sexually active: Yes Smoking Status: Never smoker second hand exposure: No alcohol intake: never substance use type: does not use well-balanced diet: daily or most days caffeine: Yes Type: tea Number of servings: 2 eating out: 1-3 times/week during the past year weight has: remained stable what type of physical activity do you participate in: none frequency: does not exercise eron/adventist: Episcopalian seatbelt use: always do you feel safe at home: Yes 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 Date Name GA/Weeks Outcome Route Bth Weight Gen Labor Lgth Anesthesia Del Locatn Provider FOB Unknown 12/06/2014 Brad 41 live - full term 8lbs 7oz Male 12 hours epidural [facility] Leanna Irvin Unknown 03/30/2016 Brennan 39 live - full term 8lbs 1oz Male 4hours epi dural [facility] Cadence Irvin 10/23/20 Shea 37 live - full term 6#7oz Female epidural [facility] S EM Irvin Delivery Date: Last Updated by: Zelda Bates no complications; + GBS tx in labor with PCN Delivery Date: Last Updated by: Zelda Bates no complication; GBS + tx with PCN in labor Delivery Date: 10/23/20 Last Updated by: Zelda Bates PROM HPI 23WK OB (6wk since last per ) Details: MARITZA REN is a 34 year old who presents for routine OB visit. OB Visit ASHWIN Calculator Estimated Delivery Date Method Current WG Current Estimate 02/11/25 LMP (Certain) 23w 4d Other Estimates 02/08/25 Ultrasound #1 24w 0d Expected Delivery Route/Plan Labor Preferences- CB/BF classes: [] labor support person: [] labor intervention preferences: [] pain management options preferred: [] cut cord/dad catch: [] : [] PP control planned: [] discussed possible routes of delivery and associated risks: [] special requests: [] Specific Issue/Plans Covid status: [] Flu vaccine: [] Tdap vaccine: [] Rhogam: [] LARC form signed: [] Problem list reviewed and updated with the most current plan of care details and appropriate orders placed. Relevant counseling for the gestational age provided. Continue routine care and follow up unless otherwise noted in visit notes/problem list details Initial Weight: Not Recorded Date -???-???-???-???-?? ?-???-???-???-???-? ??-???-???- EGA Weight BP Urine Prot -???-???-???-???-?? ?-???-???-???-???-? ??-???-???- Glucose FHR FuHt Pres Dilation -???-???-???-???-?? ?-???-???-???-???-? ??-???-???- Effaced St Visit Note 07/06/24 -???-???-???-???-?? ?-???-???-???-???-? ??-???-???- 8w 4d 153 lb 8 oz 118/72 -???-???-???-???-?? ?-???-???-???-???-? ??-???-???- 175 -???-???-???-???-?? ?-???-???-???-???-? ??-???-???- KW- CRL cons with dates. undecided on NIPT. requesting toxoplasmosis testing due [place]. 08/07/24 -???-???-???-???-?? ?-???-???-???-???-? ??-???-???- (more content not included)... Normal [facility] - Chemistry and C hemistry - challengeOrdered By: Lily Vila on 09-07-2024 Glucose Ql (U) Negative [facility] - UrinalysisOrder ed By: Lily Vila on 09-07-2024 Protein Ql (U) Negative [facility] Lubrication Servicer Office Visit Reporton 09-07-2024 Lubrication Servicer Office Visit Report [facility] [address], [address] [place] [address] OFFICE VISIT Date of Service: 09/07/24 MR#: [id number] Acct: [id number] Name: MARITZA REN COREY Rep #: [id number] : 1990 Provider: Dr. Lily gomez MD Age/Sex: 34/F Location: [facility] Status: Signed Intake Vital Signs 07/06/24 08:49 08/07/24 09:48 09/07/24 09:37 Height 5 ft 3 in 5 ft 3 in 5 ft 3 in Weight: 164 lb BMI 29.0 BP 109/70 Intake Visit Reasons: 16 WK OB Director Of Institutional Sales Required: No Is patient in pain?: No Feel stressed/tense/nerv ous/anxious/difficu lty sleeping: not at all Allergies No Known Allergies Allergy (Verified 09/07/24 09:37) Medications ???Medication ???Instructions ???Recorded ???Confirmed ???Type multivitamin no.47-iron fum 27 cap PO 06/29/24 09/07/24 History mg-folate no.1 1 mg-dha 300 mg capsule (PNV-DHA) Last Menstrual Period: 05/07/24 Zika: Zika virus screening: Negative : No Have you fallen in the past year?: No PFSH PFSH Surgical History H/O wisdom tooth extraction Family History Father Cancer, Onset Age: 54 multiple myeloma Grandfather Cancer, Onset Age: 70 Paternal- Lymphoma Mother Thyroid disorder, Onset Age: 40 hypothyroidism Grandmother Hypertension, Onset Age: 50 Maternal Social History adopted: No household members: spouse number of children: 3 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 current occupational exposures/hazards: No pets and animals: Yes pets and animals: dog(s) history of recent travel: No sexually active: Yes Smoking Status: Never smoker second hand exposure: No alcohol intake: never substance use type: does not use well-balanced diet: daily or most days caffeine: Yes Type: tea Number of servings: 2 eating out: 1-3 times/week during the past year weight has: remained stable what type of physical activity do you participate in: none frequency: does not exercise eron/adventist: Episcopalian seatbelt use: always do you feel safe at home: Yes 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 Date Name GA/Weeks Outcome Route Bth Weight Gen Labor Lgth Anesthesia Del Locatn Provider FOB Unknown 12/06/2014 Brad 41 live - full term 8lbs 7oz Male 12 hours epidural [facility] Leanna Irvin Unknown 03/30/2016 Brennan 39 live - full term 8lbs 1oz Male 4hours epi dural [facility] Cadence Irvin 10/23/20 Shea 37 live - full term 6#7oz Female epidural [facility] S EM Irvin Delivery Date: Last Updated by: Zelda Bates no complications; + GBS tx in labor with PCN Delivery Date: Last Updated by: Zelda Bates no complication; GBS + tx with PCN in labor Delivery Date: 10/23/20 Last Updated by: Zelda Bates PROM HPI 16 WK OB Details: MARITZA REN is a 34 year old who presents for routine OB visit. OB Visit ASHWIN Calculator Estimated Delivery Date Method Current WG Current Estimate 02/11/25 LMP (Certain) 17w 4d Other Estimates 02/08/25 Ultrasound #1 18w 0d Expected Delivery Route/Plan Labor Preferences- CB/BF classes: [] labor support person: [] labor intervention preferences: [] pain management options preferred: [] cut cord/dad catch: [] : [] PP control planned: [] discussed possible routes of delivery and associated risks: [] special requests: [] Specific Issue/Plans Covid status: [] Flu vaccine: [] Tdap vaccine: [] Rhogam: [] LARC form signed: [] Problem list reviewed and updated with the most current plan of care details and appropriate orders placed. Relevant counseling for the gestational age provided. Continue routine care and follow up unless otherwise noted in visit notes/problem list details Initial Weight: Not Recorded Date -???-???-???-???-?? ?-???-???-???-???-? ??-???-???- EGA Weight BP Urine Prot -???-???-???-???-?? ?-???-???-???-???-? ??-???-???- Glucose FHR FuHt Pres Dilation -???-???-???-???-?? ?-???-???-???-???-? ??-???-???- Effaced St Visit Note 07/06/24 -???-???-???-???-?? ?-???-???-???-???-? ??-???-???- 8w 4d 153 lb 8 oz 118/72 -???-???-???-???-?? ?-???-???-???-???-? ??-???-???- 175 -???-???-???-???-?? ?-???-???-???-???-? ??-???-???- KW- CRL cons with dates. undecided on NIPT. requesting toxoplasmosis testing due to living [place]. 08/07/24 (more content not included)... Normal [facility] Toxoplasma Gondii IgGon 07-20 TOXOPLASMA IgG < 3.0 Normal 0.0-7.1 [facility] Comment on above: Result Comment: Nega tive <7.2 Equivocal 7.2 - 8.7 Positive >8.7 Performed By: #### L 7000.1800, M100.2200, L7400.0280 #### [facility] [address] [place], [address] Toxoplasma Gondii IgMon 07-20 Tox. gondii Com Comment Normal . [facility] Comment on above: Result Comment: It i s presumed the patient has not been infected with and is not undergoing an acute infection with Toxoplasma. If symptoms persist, submit a new specimen after three weeks. Performed at: [facility] [address], [place] [id number] Program Production Specialist: Shabbir Morgan PhD, Phone: [phone] Performed By: #### L 7000.1800, M100.2200, L7400.0280 #### [facility] [address] [place], [address] TOXOPLASMA IgM < 3.0 Normal 0.0-7.9 [facility] Comment on above: Result Comment: Nega tive <8.0 Equivocal 8.0 - 9.9 Positive >9.9 Performed By: #### L 7000.1800, M100.2200, L7400.0280 #### [facility] [address] [place], [address] Absolute lymphocyte countOrd ered By: Ricardo Singh on 08-07-2024 Lymphocytes Auto (Unsp spec) [#/Vol] 1.16 10*3/uL 0.83-4.51 [facility] Absolute neutrophil countOrd ered By: Ricardo Singh on 08-07-2024 Neutrophils (Bld) [#/Vol] 6.3 10*3/uL 2.0-7.7 [facility] Automated lymphocyte count a s percentage of total leukocytesOrdered By: Ricardo Singh on 08-07-2024 Lymphocytes/100 WBC Auto (Unsp spec) 14.6 % Low 19-41 [facility] Basophil percentageOrdered B y: Ricardo Singh on 08-07-2024 Basophils/100 WBC (Bld) 0.3 % 0-1 [facility] CBC W/Diff, Automatedon - Absolute Lymph 1.16 X10 3/uL Normal 0.83-4.51 [facility] Comment on above: Performed By: #### L 100.0100, L509.8000, L3400.1990, L509.4005, L3400.1980, L3890.6300, L3890.6100, L3890.6005, BTS #### [facility] [address] [place], [address] Absolute Neut 6.3 X10 3/uL Normal 2.0-7.7 [facility] Comment on above: Performed By: #### L 100.0100, L509.8000, L3400.1990, L509.4005, L3400.1980, L3890.6300, L3890.6100, L3890.6005, BTS #### [facility] [address] [place], [address] Basophils/100 WBC (Bld) 0.3 % Normal 0-1 [facility] Comment on above: Performed By: #### L 100.0100, L509.8000, L3400.1990, L509.4005, L3400.1980, L3890.6300, L3890.6100, L3890.6005, BTS #### [facility] [address] [place], [address] Eosinophils/100 WBC (Bld) 1.6 % Normal 0-5 [facility] Comment on above: Performed By: #### L 100.0100, L509.8000, L3400.1990, L509.4005, L3400.1980, L3890.6300, L3890.6100, L3890.6005, BTS #### [facility] [address] [place], [address] Erythrocyte distribution width (RBC) [Ratio] 12.8 % Normal 11.6-14.6 [facility] Comment on above: Performed By: #### L 100.0100, L509.8000, L3400.1990, L509.4005, L3400.1980, L3890.6300, L3890.6100, L3890.6005, BTS #### [facility] [address] [place], [address] Hematocrit (Bld) [Volume fraction] 37.5 % Normal 37-47 [facility] Comment on above: Performed By: #### L 100.0100, L509.8000, L3400.1990, L509.4005, L3400.1980, L3890.6300, L3890.6100, L3890.6005, BTS #### [facility] [address] [place], [address] Hemoglobin (Bld) [Mass/Vol] 12.7 g/dL Normal 12.0-15.0 [facility] Comment on above: Performed By: #### L 100.0100, L509.8000, L3400.1990, L509.4005, L3400.1980, L3890.6300, L3890.6100, L3890.6005, BTS #### [facility] [address] [place], [address] IG% 0.400 Normal 0.0-0.9 [facility] Comment on above: Result Comment: IG% - Immature Granulocytes (promyelocytes, myelocytes and metamyelocytes) > 1% indicates that a LEFT SHIFT is Present. Performed By: #### L 100.0100, L509.8000, L3400.1990, L509.4005, L3400.1980, L3890.6300, L3890.6100, L3890.6005, BTS #### [facility] [address] [place], [address] Lymphocytes/100 WBC (Bld) 14.6 % Low 19-41 [facility] Comment on above: Performed By: #### L 100.0100, L509.8000, L3400.1990, L509.4005, L3400.1980, L3890.6300, L3890.6100, L3890.6005, BTS #### [facility] [address] [place], [address] MCH (RBC) [Entitic mass] 29.2 pg Normal 27.0-32.0 [facility] Comment on above: Performed By: #### L 100.0100, L509.8000, L3400.1990, L509.4005, L3400.1980, L3890.6300, L3890.6100, L3890.6005, BTS #### [facility] [address] [place], [address] MCHC (RBC) [Mass/Vol] 33.9 g/dL Normal 32-36 [facility] Comment on above: Performed By: #### L 100.0100, L509.8000, L3400.1990, L509.4005, L3400.1980, L3890.6300, L3890.6100, L3890.6005, BTS #### [facility] [address] [place], [address] MCV (RBC) [Entitic vol] 86.2 fL Normal 81-99 [facility] Comment on above: Performed By: #### L 100.0100, L509.8000, L3400.1990, L509.4005, L3400.1980, L3890.6300, L3890.6100, L3890.6005, BTS #### [facility] [address] [place], [address] Monocytes/100 WBC (Bld) 4.8 % Normal 0-10 [facility] Comment on above: Performed By: #### L 100.0100, L509.8000, L3400.1990, L509.4005, L3400.1980, L3890.6300, L3890.6100, L3890.6005, BTS #### [facility] [address] [place], [address] Neutrophils/100 WBC (Bld) 78.3 % High 47-70 [facility] Comment on above: Performed By: #### L 100.0100, L509.8000, L3400.1990, L509.4005, L3400.1980, L3890.6300, L3890.6100, L3890.6005, BTS #### [facility] [address] [place], [address] Nucleated RBC (Bld) [#/Vol] 0 10*3/uL Normal 0-5 [facility] Comment on above: Performed By: #### L 100.0100, L509.8000, L3400.1990, L509.4005, L3400.1980, L3890.6300, L3890.6100, L3890.6005, BTS #### [facility] [address] [place], [address] Platelet mean volume (Bld) [Entitic vol] 9.0 fL Normal 6.2-12.0 [facility] Comment on above: Performed By: #### L 100.0100, L509.8000, L3400.1990, L509.4005, L3400.1980, L3890.6300, L3890.6100, L3890.6005, BTS #### [facility] [address] [place], [address] Platelets (Bld) [#/Vol] 263 10*3/uL Normal 150-450 [facility] Comment on above: Performed By: #### L 100.0100, L509.8000, L3400.1989, L509.4005, L3400.1980, L3890.6300, L3890.6100, L3890.6005, BTS #### [facility] [address] [place], [address] RBC (Bld) [#/Vol] 4.35 10*6/uL Normal 4.2-5.4 [facility] Comment on above: Performed By: #### L 100.0100, L509.8000, L3400.1990, L509.4005, L3400.1980, L3890.6300, L3890.6100, L3890.6005, BTS #### [facility] [address] [place], [address] RDW SD 40.3 fl Normal 35.1-43.9 [facility] Comment on above: Performed By: #### L 100.0100, L509.8000, L3400.1990, L509.4005, L3400.1980, L3890.6300, L3890.6100, L3890.6005, BTS #### [facility] [address] [place], [place], [address] WBC (Bld) [#/Vol] 8.0 10*3/uL Normal 4.4-11.0 [facility] Comment on above: Performed By: #### L 100.0100, L509.8000, L3400.1990, L509.4005, L3400.1980, L3890.6300, L3890.6100, L3890.6005, BTS #### [facility] [address] [place], [address] Eosinophil percentageOrdered By: Ricardo Singh on 08-07-2024 Eosinophils/100 WBC (Bld) 1.6 % 0-5 [facility] Erythrocyte distribution wid th ratioOrdered By: Ricardo Singh on 08-07-2024 Erythrocyte distribution width (RBC) [Ratio] 12.8 % 11.6-14.6 [facility] Erythrocyte distribution wid th standard deviationOrdered By: Ricardo Singh on 08-07-2024 Erythrocyte distribution width (RBC) [Ratio] 40.3 fl 35.1-43.9 [facility] HIV - WCHon 08-07-2024 HIV Non-Reactive Normal Nonreactive [facility] Comment on above: Order Comment: Reaso n for Exam: Performed By: #### L 100.0100, L509.8000, L3400.1990, L509.4005, L3400.1980, L3890.6300, L3890.6100, L3890.6005, BTS #### [facility] [address] [place], [address] HIV 1 and HIV-2 antibody ass ay with HIV-1 p24 antigen detectionOrdered By: Ricardo Singh on 08-07-2024 HIV 1+2 Ab+HIV1 p24 Ag IA Ql Non-Reactive Nonreactive [facility] Hematocrit Auto (Bld) [Volum e fraction]Ordered By: Ricardo Singh on 08-07-2024 Hematocrit (Bld) [Volume fraction] 37.5 % 37-47 [facility] Hemoglobin measurementOrdere d By: Ricardo Singh on 08-07-2024 Hemoglobin (Bld) [Mass/Vol] 12.7 g/dL 12.0-15.0 [facility] Hepatitis B Surface Antigeno n 08-07-2024 HEP B Surf Ag Non-Reactive Normal Nonreactive [facility] Comment on above: Order Comment: Reaso n for Exam: Performed By: #### L 100.0100, L509.8000, L3400.1989, L509.4005, L3400.1980, L3890.6300, L3890.6100, L3890.6005, BTS #### [facility] [address] [place], [place], [id number] Hepatitis C Antibodyon 08-07 Hepatitis C AB Non-Reactive Normal Nonreactive [facility] Comment on above: Order Comment: Reaso n for Exam: Result Comment: Non Reactive: < 0.8 Equivocal: >/= 0.8 to < 1.0 Reactive: >/= 1.0 The CDC requires that a reactive/equivocal HCV antibody result be sent out for confirmation. HCV Quant by PCR testing. Performed By: #### L 100.0100, L509.8000, L3400.1989, L509.4005, L3400.1980, L3890.6300, L3890.6100, L3890.6005, BTS #### [facility] [address] [place], [place], [address] Immature granulocytes/100 WB C Auto (Bld)Ordered By: Ricardo Singh on 08-07-2024 Immature granulocytes/100 WBC (Bld) 0.400 % 0.0-0.9 [facility] Comment on above: IG% - Immature Granu locytes (promyelocytes, myelocytes and metamyelocytes) > 1% indicates that a LEFT SHIFT is Present. L509.8000on 08-07-2024 Syphilis Abs Non-Reactive Normal [facility] Comment on above: Order Comment: Reaso n for Exam: Performed By: #### L 100.0100, L509.8000, L3400.1989, L509.4005, L3400.1980, L3890.6300, L3890.6100, L3890.6005, BTS #### [facility] [place], [address] Laboratory - Chemistry and C hemistry - challengeon 08-07-2024 Glucose Ql (U) Negative [facility] - Urinalysison Protein Ql (U) Negative [facility] MCV (mean corpuscular volume ) determinationOrdered By: Ricardo Singh on 08-07-2024 MCV (RBC) [Entitic vol] 86.2 fL 81-99 [facility] Mean corpuscular hemoglobin (MCH) determinationOrdered By: Ricardo Singh on 08-07-2024 MCH (RBC) [Entitic mass] 29.2 pg 27.0-32.0 [facility] Mean corpuscular hemoglobin concentration (MCHC) determinationOrdered By: Ricardo Singh on 08-07-2024 MCHC (RBC) [Mass/Vol] 33.9 g/dL 32-36 [facility] Mean platelet volume determi nationOrdered By: Ricardo Singh on 08-07-2024 Platelet mean volume (Bld) [Entitic vol] 9.0 fL 6.2-12.0 [facility] Monocyte percentageOrdered B y: Ricardo Singh on 08-07-2024 Monocytes/100 WBC (Bld) 4.8 % 0-10 [facility] Neutrophil percentageOrdered By: Ricardo Singh on 08-07-2024 Neutrophils/100 WBC (Bld) 78.3 % High 47-70 [facility] No Panel InformationOrdered By: Ricardo Singh on 08-07-2024 Toxoplasma Comment Comment . [facility] Comment on above: It is presumed the p atient has not been infected with andis not undergoing an acute infection with Toxoplasma. Ifsymptoms persist, submit a new specimen after three weeks.Performed at: - [address] [id number] Director: Shabbir Morgan PhD, Phone: [phone] Nucleated red blood cell per centageOrdered By: Ricardo Singh on 08-07-2024 Nucleated RBC/100 WBC (Bld) [Ratio] 0 % 0-5 [facility] Lubrication Servicer Office Visit Reporton 08-07-2024 Lubrication Servicer Office Visit Report [facility]'s [address], [address] [place] [address] OFFICE VISIT Date of Service: 08/07/24 MR#: [id number] Acct: [id number] Name: MARITZA REN Rep #: [id number] 2 : 1990 Provider: KEVIN Giordano ams Age/Sex: 34/F Location: [facility] Status: Signed Intake Vital Signs 04/13/24 11:12 07/06/24 08:49 08/07/24 09:46 08/07/24 09:48 Height 5 ft 3 in 5 ft 3 in 5 ft 3 in 5 ft 3 in Weight: 157 lb BMI 27.8 BP 105/72 Intake Visit Reasons: 12 wk OB Director Of Institutional Sales Required: No Is patient in pain?: No Feel stressed/tense/nerv ous/anxious/difficu lty sleeping: not at all Allergies No Known Allergies Allergy (Verified 08/07/24 09:46) Medications ???Medication ???Instructions ???Recorded ???Confirmed ???Type multivitamin no.47-iron fum 27 cap PO 06/29/24 08/07/24 History mg-folate no.1 1 mg-dha 300 mg capsule (PNV-DHA) Last Menstrual Period: 05/07/24 Zika: Zika virus screening: Negative : No Have you fallen in the past year?: No PFSH PFSH Surgical History H/O wisdom tooth extraction Family History Father Cancer, Onset Age: 54 multiple myeloma Grandfather Cancer, Onset Age: 70 Paternal- Lymphoma Mother Thyroid disorder, Onset Age: 40 hypothyroidism Grandmother Hypertension, Onset Age: 50 Maternal Social History adopted: No household members: spouse number of children: 3 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 current occupational exposures/hazards: No pets and animals: Yes pets and animals: dog(s) history of recent travel: No sexually active: Yes Smoking Status: Never smoker second hand exposure: No alcohol intake: never substance use type: does not use well-balanced diet: daily or most days caffeine: Yes Type: tea Number of servings: 2 eating out: 1-3 times/week during the past year weight has: remained stable what type of physical activity do you participate in: none frequency: does not exercise eron/adventist: Ep[employer]opalian seatbelt use: always do you feel safe at home: Yes 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 Date Name GA/Weeks Outcome Route Bth Weight Gen Labor Lgth Anesthesia Del Locatn Provider FOB Unknown 12/06/2014 Brad 41 live - full term 8lbs 7oz Male 12 hours epidural [facility] Ram Irvin Unknown 03/30/2016 Brennan 39 live - full term 8lbs 1oz Male 4hours epi dural [facility] Marcanthony Irvin 10/23/20 Shea 37 live - full term 6#7oz Female epidural [facility] S EM Irvin Delivery Date: Last Updated by: Zelda Bates no complications; + GBS tx in labor with PCN Delivery Date: Last Updated by: Zelda Bates no complication; GBS + tx with PCN in labor Delivery Date: 10/23/20 Last Updated by: Zelda Bates PROM HPI 12 wk OB Details: MARITZA REN is a 34 year old who presents for routine OB visit. OB Visit ASHWIN Calculator Estimated Delivery Date Method Current WG Current Estimate 02/11/25 LMP (Certain) 13w 1d Other Estimates 02/08/25 Ultrasound #1 13w 4d Expected Delivery Route/Plan Labor Preferences- CB/BF classes: [] labor support person: [] labor intervention preferences: [] pain management options preferred: [] cut cord/dad catch: [] : [] PP control planned: [] discussed possible routes of delivery and associated risks: [] special requests: [] Specific Issue/Plans Covid status: [] Flu vaccine: [] Tdap vaccine: [] Rhogam: [] LARC form signed: [] Problem list reviewed and updated with the most current plan of care details and appropriate orders placed. Relevant counseling for the gestational age provided. Continue routine care and follow up unless otherwise noted in visit notes/problem list details Initial Weight: Not Recorded Date -???-???-???-???-?? ?-???-???-???-???-? ??-???-???- EGA Weight BP Urine Prot -???-???-???-???-?? ?-???-???-???-???-? ??-???-???- Glucose FHR FuHt Pres Dilation -???-???-???-???-?? ?-???-???-???-???-? ??-???-???- Effaced St Visit Note 07/06/24 -???-???-???-???-?? ?-???-???-???-???-? ??-???-???- 8w 4d 153 lb 8 oz 118/72 -???-???-???-???-?? ?-???-???-???-???-? ??-???-???- 175 -???-???-???-???-?? ?-???-???-???-???-? ??-???-???- KW- CRL cons with dates. undecided on NIPT. requesting toxoplasmosis testing due to living on sheep (more content not included)... Normal [facility] Platelet countOrdered By: Alfonso Singh on 08-07-2024 Platelets (d) [#/Vol] 263 10*3/uL 150-450 [facility] RBC Auto (d) [#/Vol]Ordere d By: Ricardo Singh on 08-07-2024 RBC (Bld) [#/Vol] 4.35 10*6/uL 4.2-5.4 [facility] Rubella IgGon 08-07-2024 Rubella IgG Reactive Normal Nonreactive [facility] Comment on above: Order Comment: Reaso n for Exam: Result Comment: Anti body Results Interpretation of Immune Status Non Reactive Presumed Non-Immune Equivocal Equivocal Reactive Presumed Immune Performed By: #### L 100.0100, L509.8000, L3400.1990, L509.4005, L3400.1980, L3890.6300, L3890.6100, L3890.6005, BTS #### [facility] [address], [place], [id number] Serum Toxoplasma gondii IgG antibody assay (units/volume)Ordered By: Ricardo Singh on 08-07-2024 T. gondii IgG Qn (S) < 3.0 IU/mL 0.0-7.1 [facility] Comment on above: Negative <7.2 Equivo jaxson 7.2 - 8.7 Positive >8.7 Serum Toxoplasma gondii IgM antibody assay by immunoassay (units/volume)Ordered By: Ricardo Singh on 08-07-2024 T. gondii IgM IA Qn (S) < 3.0 AU/mL 0.0-7.9 [facility] Comment on above: Negative <8.0 Equivo jaxson 8.0 - 9.9 Positive >9.9 Serum Treponema species anti body detectionOrdered By: Ricardo Singh on 08-07-2024 Treponema sp Ab Ql (S) Non-Reactive [facility] Type AND Screenon 08-07-2024 Ab SCREEN GEL Negative Normal [facility] Comment on above: Order Comment: PN Performed By: #### L 100.0100, L509.8000, L3400.1990, L509.4005, L3400.1980, L3890.6300, L3890.6100, L3890.6005, BTS #### [facility] [address], [place], [id number] White blood cell (WBC) count Ordered By: Ricardo Singh on 08-07-2024 WBC (Bld) [#/Vol] 8.0 10*3/uL 4.4-11.0 [facility] PAP IG HPV APTIMA 16/18,45on 07-14-2024 ADEQ Comment Normal . [facility] Comment on above: Order Comment: Speci men Comment: [id number] Specimen Comment: Source.............Cervix Specimen Comment: Other.............. Specimen Comment: No. of containers..01 ThinPrep Vial Result Comment: Sati sfactory for evaluation. Endocervical and/or squamous metaplastic cells (endocervical component) are present. Performed By: #### L 7000.1800, M100.2200, L7400.0280 #### [facility] [address] [place], [place], [id number] COMM . Normal . [facility] Comment on above: Order Comment: Speci men Comment: [id number] Specimen Comment: Source.............Cervix Specimen Comment: Other.............. Specimen Comment: No. of containers..01 ThinPrep Vial Performed By: #### L 7000.1800, M100.2200, L7400.0280 #### [facility] [address] [place], [place], [id number] COMMENT Comment Normal . [facility] Comment on above: Order Comment: Speci men Comment: [id number] Specimen Comment: Source.............Cervix Specimen Comment: Other.............. Specimen Comment: No. of containers..01 ThinPrep Vial Result Comment: This liquid based ThinPrep(R) pap test was screened with the use of an image guided system. Performed By: #### L 7000.1800, M100.2200, L7400.0280 #### [facility] [address] [place], [place], [address] DIAG Comment Normal . [facility] Comment on above: Order Comment: Speci men Comment: [id number] Specimen Comment: Source.............Cervix Specimen Comment: Other.............. Specimen Comment: No. of containers..01 ThinPrep Vial Result Comment: NEGA TIVE FOR INTRAEPITHELIAL LESION OR MALIGNANCY. Performed By: #### L 7000.1800, M100.2200, L7400.0280 #### [facility] [address] [place], [address] HPV APTIMA, HR Negative Normal Negative [facility] Comment on above: Order Comment: Speci men Comment: [id number] Specimen Comment: Source.............Cervix Specimen Comment: Other.............. Specimen Comment: No. of containers..01 ThinPrep Vial Result Comment: This nucleic acid amplification test detects fourteen high- risk HPV types (16,18,31,33,35,39,45,51,52,56,58,59,66,68) without differentiation. Performed By: #### L 7000.1800, M100.2200, L7400.0280 #### [facility] [address] [place], [address] HPV Aida Rfx Comment Normal . [facility] Comment on above: Order Comment: Speci men Comment: [id number] Specimen Comment: Source.............Cervix Specimen Comment: Other.............. Specimen Comment: No. of containers..01 ThinPrep Vial Result Comment: Crit eria not met, HPV Genotype not performed. Performed at: [address] [id number] Program Production Specialist: Demario Del Toro MD, Phone: [phone] Performed at: [address] [id number] Program Production Specialist: Shaista Blas MD, Phone: [phone] Performed at: =[facility] [id number] Program Production Specialist: Shaista Blas MD, Phone: [phone] Performed By: #### L 7000.1800, M100.2200, L7400.0280 #### [facility] [address] [place], [place], [address] PAPSMR Comment Normal . [facility] Comment on above: Order Comment: Speci men Comment: [id number] Specimen Comment: Source.............Cervix Specimen Comment: Other.............. Specimen Comment: No. of containers..01 ThinPrep Vial Result Comment: The Pap smear is a screening test designed to aid in the detection of premalignant and malignant conditions of the uterine cervix. It is not a diagnostic procedure and should not be used as the sole means of detecting cervical cancer. Both false-positive and false-negative reports do occur. Performed By: #### L 7000.1800, M100.2200, L7400.0280 #### [facility] [address] [place], [place], [id number] PERFORM Comment Normal . [facility] Comment on above: Order Comment: Speci men Comment: [id number] Specimen Comment: Source.............Cervix Specimen Comment: Other.............. Specimen Comment: No. of containers..01 ThinPrep Vial Result Comment: Ryne Fuentes, Floor Cashier (ASCP) Performed By: #### L 7000.1800, M100.2200, L7400.0280 #### [facility] [address] [place], [place], [address] Chlamydia/GC JIMMY aptimaon CHLAMY,NUC ACID Negative Normal Negative [facility] Comment on above: Performed By: #### L 7000.1800, M100.2200, L7400.0280 #### [facility] [address] [place], [address] GC BY NUC ACID Negative Normal Negative [facility] Comment on above: Result Comment: Perf ormed at: =G - [facility] [address] [place] [id number] Program Production Specialist: Shaista Blas MD, Phone: [phone] Performed By: #### L 7000.1800, M100.2200, L7400.0280 #### [facility] [address] [place], [address] Urine Cultureon 07-07-2024 URC Culture exhibits no growth. Normal [facility] Comment on above: Performed By: #### L 7000.1800, M100.2200, L7400.0280 #### [facility] [address] [place], [address] Lubrication Servicer Office Visit Reporton 07-06-2024 Lubrication Servicer Office Visit Report [facility]'s [address], [address] [place] [address] OFFICE VISIT Date of Service: 07/06/24 MR#: [id number] Acct: [id number] Name: MARITZA REN COREY Rep #: [id number] : 1990 Provider: KEVIN Giordano ams Age/Sex: 34/F Location: [facility] Status: Signed Intake Vital Signs 04/13/24 11:12 07/06/24 08:49 Height 5 ft 3 in 5 ft 3 in Weight: 153 lb 8 oz BMI 27.1 BP 118/72 Intake Visit Reasons: NOB LMP 05/07 Chief Complaint: NOB Director Of Institutional Sales Required: No Is patient in pain?: No Allergies No Known Allergies Allergy (Verified 07/06/24 08:50) Medications ???Medication ???Instructions ???Recorded ???Confirmed ???Type multivitamin no.47-iron fum 27 cap PO 06/29/24 06/29/24 History mg-folate no.1 1 mg-dha 300 mg capsule (PNV-DHA) Last Menstrual Period: 05/07/24 Zika: Zika virus screening: Negative : Yes PFS PFS Surgical History H/O wisdom tooth extraction Family History Father Cancer, Onset Age: 54 multiple myeloma Grandfather Cancer, Onset Age: 70 Paternal- Lymphoma Mother Thyroid disorder, Onset Age: 40 hypothyroidism Grandmother Hypertension, Onset Age: 50 Maternal Social History adopted: No household members: spouse number of children: 3 financial difficulty paying for basics: not very hard service: No 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 current occupational exposures/hazards: No pets and animals: Yes pets and animals: dog(s) history of recent travel: No sexually active: Yes do you think of yourself as: straight/heterosexu al Smoking Status: Never smoker second hand exposure: No alcohol intake: never substance use type: does not use well-balanced diet: daily or most days caffeine: Yes Type: tea Number of servings: 2 eating out: 1-3 times/week during the past year weight has: remained stable what type of physical activity do you participate in: none How many days of moderate to strenuous exercise, like a brisk walk, did you do in the last 7 days: 0 frequency: does not exercise eron/adventist: [employer] seatbelt use: always do you feel safe at home: Yes 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 Date Name GA/Weeks Outcome Route Bth Weight Gen Labor Lgth Anesthesia Del Locatn Provider FOB Unknown 12/06/2014 Brad 41 live - full term 8lbs 7oz Male 12 hours epidural [facility] Leanna Irvin Unknown 03/30/2016 Brennan 39 live - full term 8lbs 1oz Male 4hours epi dural [facility] Cadence Irvin 10/23/20 Shea 37 live - full term 6#7oz Female epidural [facility] S EM Irvin Delivery Date: Last Updated by: Zelda aBtes no complications; + GBS tx in labor with PCN Delivery Date: Last Updated by: Zelda Bates no complication; GBS + tx with PCN in labor Delivery Date: 10/23/20 Last Updated by: Zelda Bates PROM HPI NOB LMP 05/07 Details: MARITZA REN is a 34 year old who presents for New OB visit. OB Visit ASHWIN Calculator Estimated Delivery Date Method Current WG Current Estimate 02/11/25 LMP (Certain) 8w 4d Other Estimates 02/08/25 Ultrasound #1 9w 0d Comments: HIV: Urine Culture: Sequential Screen: NIPT Screen: Estimated Due Date: 02/11/25 Expected Delivery Route/Plan Labor Preferences- CB/BF classes: [] labor support person: [] labor intervention preferences: [] pain management options preferred: [] cut cord/dad catch: [] : [] PP control planned: [] discussed possible routes of delivery and associated risks: [] special requests: [] Specific Issue/Plans Covid status: [] Flu vaccine: [] Tdap vaccine: [] Rhogam: [] LARC form signed: [] Problem list reviewed and updated with the most current plan of care details and appropriate orders placed. Relevant counseling for the gestational age provided. Continue routine care and follow up unless otherwise noted in visit notes/problem list details Initial Weight: Not Recorded Date -???-???-???-???-?? ?-???-???-???-???-? ??-???-???- EGA Weight BP Urine Prot -???-???-???-???-?? ?-???-???-???-???-? ??-???-???- Glucose FHR FuHt Pres Dilation -???-???-???-???-?? ?-???-???-???-???-? ??-???-???- Effaced St Visit Note 07/06/24 -???-???-???-???-?? ?-???-???-???-???-? ??-???-???- 8w 4d 153 lb 8 (more content not included)... Normal [facility] Lubrication Servicer Office Visit Reporton 04-13-2024 Lubrication Servicer Office Visit Report [facility] [address], [address] [place] [address] OFFICE VISIT Date of Service: 04/13/24 MR#: [id number] Acct: [id number] Name: MARITZA REN COREY Rep #: [id number] : 1990 Provider: KEVIN Giordano ams Age/Sex: 33/F Location: [facility] Status: Signed Intake Vital Signs 06/23/23 08:53 04/13/24 11:11 04/13/24 11:12 Height 5 ft 3 in 5 ft 3 in 5 ft 3 in Weight: 149 lb BMI 26.4 BP 104/68 Intake Visit Reasons: LILETTA REMOVAL Director Of Institutional Sales Required: No Is patient in pain?: No Allergies No Known Allergies Allergy (Verified 04/13/24 11:11) Post menopausal: No Patient : No : No PFSH Surgical History H/O wisdom tooth extraction Social History Smoking Status: Never smoker alcohol intake: never substance use type: does not use what type of physical activity do you participate in: walking do you feel safe at home: Yes additional social history: - Irvin HPI LILETTA REMOVAL Details: MARITZA REN is a 33 year old who presents for IUD removal. Would like to conceive. PNV encouraged Female Reproductive History Last Menstrual Period: 04/12/24 History 3 Elective abortions Hx Para 2 Spontaneous abortions Hx # Term Pregnancies Ectopic pregnancies Hx # Pregnancies Multiple births # of living children 3 Past Pregnancies Del. Date Name GA/Weeks Outcome Route Bth Weight Infant Gen Labor Lgth Anesthesia Del Locatn Provider FOB Unknown 12/06/2014 Brad 41 live - full term 8lbs 7oz Male 12 hours epidural [facility] Ram Irvin Unknown 03/30/2016 Brennan 39 live - full term 8lbs 1oz Male 4hours epi dural [facility] Cadence Bryan 10/23/20 Mattalyn 37 live - full term Female epidural [facility] S EM Delivery Date: Last Updated by: Zelda Bates no complications; + GBS tx in labor with PCN Delivery Date: Last Updated by: Zelda Bates no complication; GBS + tx with PCN in labor Delivery Date: 10/23/20 Last Updated by: Zelda Bates PROM ROS Const Constitutional: Reports system reviewed and no additional complaints, except as documented Cardio Card: Reports system reviewed and no additional complaints, except as documented Resp Resp: Reports system reviewed and no additional complaints, except as documented GI GI: Reports system reviewed and no additional complaints, except as documented : Reports system reviewed and no additional complaints, except as documented; Denies difficulty voiding, dysuria or urinary frequency Skin Skin/Breast: Reports system reviewed and no additional complaints, except as documented Neuro Neuro: Reports system reviewed and no additional complaints, except as documented Psych Psych: Reports system reviewed and no additional complaints, except as documented Exam Const General: cooperative, healthy appearing, comfortable and no acute distress Resp Effort Inspection: normal respiratory effort, able to speak in complete sentences and symmetric chest movement GI Inspection: normal to inspection Palpation: soft External Female Exam: normal external appearance and normal appearance of the urethra Urethra: normal appearance of the urethra Speculum Exam - Vagina: normal appearance of the vagina and normal vaginal discharge Speculum Exam - Cervix: normal appearance of the cervix and nontender Bimanual Exam- Vagina Uterus: normal bimanual exam, normal palpation, uterine size normal, No tender and non-tender Bimanual Exam- Adnexa, other: normal Pelvic Support: normal Neuro General: patient alert, patient awake and patient oriented x3 Cognition: normal cognition Speech: speech normal Gait: normal gait Psych Appearance: grossly normal and well kempt Mental Status: mental status grossly normal Affect: normal affect Speech and Movement: speech and movement normal Attitude: cooperative Thought Process: normal Thought Content: normal Judgment: judgment good Office Procedures IUD Removal IUD Removal Details: Sign out documentation: Completed Procedure: Speculum placed in vagina, IUD string visualized and grasped with ring forceps. IUD easily removed in its entirety and patient tolerated well. Coding Level of Care Code Attention Delfino Assessment and Plan Assessment and Plan Orders: Orders IUD Removal Today Z30.432 - Encounter for removal of intrauterine contraceptive device 04/13/24 1123 Date Ricardo Singh CNM Cosigner Signature: Date (if applicable) CC: Normal [facility] Laboratory - Chemistry and C hemistry - challengeOrdered By: Tea Thornton on 02-18-2024 Bilirubin Ql (U) Negative Negative [facility] th Glucose Ql (U) Negative Normal, Negative mg/dL [facility] Ketones Ql (U) Negative Negative mg/dL [facility] alth pH (U) 6.0 [pH] 5.0 - 7.0 [facility] Specific gravity (U) [Rel density] 1.010 1.005 - 1.025 [facility] Urobilinogen Qn (U) 0.2 mg/dL <2.0, 0. 2, Normal, Negative, 1.0, 2.0, <1.0 [facility] Laboratory - Hematology and Cell countsOrdered By: Tea Thornton on 02-18-2024 Hemoglobin Ql (U) Trace-lysed Abnormal Negative [facility] alth Laboratory - Specimen inform ationOrdered By: Tea Thornton on 02-18-2024 Color (U) Yellow Yellow, Light Yellow, Dark Yellow [facility] Laboratory - UrinalysisOrder ed By: Tea Thornton on 02-18-2024 Leukocyte esterase Test strip Ql (U) Small Abnormal Negative [facility] Nitrite Ql (U) Negative Negative [facility] Protein Ql (U) Negative Negative mg/dL [facility] alth No Panel InformationOrdered By: Tea Thornton on 02-18-2024 Clarity, UA Clear Clear [facility] Interpretation and review of laboratory results Abnormal [facility] WET PREPARATIONon 02-18-2024 WET PREPARATION TRICH WET PREP No Trichomonas Seen YEAST WET PREP No Yeast Seen YEAST W/HYPHAE WET PREP No Yeast with Hyphae Seen WBC WET PREP Few WBC's Seen CLUE CELLS Possible Clue Cells Seen Abnormal No Clue Cells Seen [facility] Comment on above: Performed By: #### [id number] #### LAB [address] [place], [place] [address] Gallito Can M.D. [id number] Wet PreparationOrdered By: Karen Hoff on 02-18-2024 Clue cells Wet prep Ql (Unsp spec) Possible Clue Cells Seen Abnormal No Clue Cells Seen [facility] Interpretation and review of laboratory results Abnormal [facility] T. vaginalis Wet prep Ql (Genital specimen) No Trichomonas Seen No Trichomonas Seen [facility] WBC Wet prep Ql (Unsp spec) Few WBC's Seen Abnormal No WBC's Seen [facility] Yeast Wet prep Ql (Genital specimen) No Yeast Seen No Yeast Seen [facility] Yeast.hyphae Wet prep Ql (Unsp spec) No Yeast with Hyphae Seen No Yeast with Hyphae Seen [facility] POC Urinalysis Dipstick,Auto UCon 12-10-2023 Bilirubin Ql (U) Negative Negative [facility] th Clarity, UA Clear Clear [facility] Color (U) [place] Abnormal Yellow, Light Yellow, Dark Yellow [facility] Comment on above: took AZO Glucose Ql (U) 100 mg/dL Abnormal Normal, Negative [facility] Hemoglobin Ql (U) Trace-intact Abnormal Negative [facility] ealth Interpretation and review of laboratory results Abnormal [facility] Ketones Ql (U) Negative Negative mg/dL [facility] alth Leukocyte esterase Test strip Ql (U) Trace Abnormal Negative [facility] Nitrite Ql (U) Positive Abnormal Negative [facility] pH (U) 5.0 [pH] 5.0 - 7.0 [facility] Protein Ql (U) 30 mg/dL Abnormal Negative [facility] Specific gravity (U) [Rel density] 1.005 1.005 - 1.025 [facility] Urobilinogen Qn (U) 2.0 mg/dL <2.0, 0. 2, Normal, Negative, 1.0, 2.0, <1.0 [facility] URINE AEROBIC CULTUREon 11-17 URINE AEROBIC CULTURE URINE CULTURE No Growth (<1,000 CFU/mL) Normal [facility] Comment on above: Performed By: #### [id number] #### [facility] [address], [place] [address] Edward Marquez M.D. [id number] Gram stain for investigation of transfusion reactionOrdered By: Yazmin Esposito on 06-23-2023 Microscopic observation Gram stain Nom (Unsp spec) [facility] Thin prep Papanicolaou smear with manual screeningOrdered By: Yazmin Esposito on 06-23-2023 Genital Culture Klebsiella aerogenes [facility] Thin prep Papanicolaou smear with manual screeningOrdered By: Ricardo Singh on 11-27-2022 Thin prep Papanicolaou smear with manual screening Neisseria or beta-hemolytic Streptococcus isolated. [facility] Gram stain for investigation of transfusion reactionOrdered By: Ricardo Singh on 11-24-2022 Microscopic observation Gram stain Nom (Unsp spec) [facility] No Panel Informationon 11-24 POC Bacterial Vaginitis (Rapid) Negative [facility] C Urineon 03-30-2018 C Urine Final Report: >100,000 cfu/ml Escherichia coliORGANISM: ECSUSCEPTIBILITY RESULTSAntibioti c BRADFORD Dilutn BRADFORD InterpORGANISM: ECAmox/Cla : <=8/4 SAmp : <=8 SAmp/Sul : <=8/4 SCefaz : <=8 SCefo : <=2 SCipro : <=1 SGent : <=4 SLevo : <=2 SMero : <=1 SNitro : <=32 SPip/Ilya : <=16 STetra : <=4 STobra : <=4 SSXT : <=2/38 [facility] Comment on above: Performed By: #### [id number] ####[place] [address] Gram stain for investigation of transfusion reaction Microscopic observation Gram stain Nom (Unsp spec) [facility] Work Phone: Thin prep Papanicolaou smear with manual screening Cytopathology procedure, preparation of smear, genital source Neisseria or beta-hemolytic Streptococcus isolated. [facility] Work Phone: Vital Signs Date Time Vital Sign Value Performing Clinician Facility 02-12-2025 15:52-0400 Body height 160.02 cm No Primary Care Physician [facility] 02-12-2025 15:51-0400 Body mass index (BMI) [Ratio] 32.5 kg/m2 No Primary Care Physician [facility] 02-12-2025 15:51-0400 Body weight 83.17 kg No Primary Care Physician [facility] 02-12-2025 15:51-0400 Diastolic blood pressure 66 mm[Hg] No Primary Care Physician [facility] 02-12-2025 15:51-0400 Systolic blood pressure 100 mm[Hg] No Primary Care Physician [facility] 02-09-2025 09:41-0400 Body height 160.02 cm No Primary Care Physician [facility] 02-09-2025 09:41-0400 Body mass index (BMI) [Ratio] 31.9 kg/m2 No Primary Care Physician [facility] 02-09-2025 09:41-0400 Body weight 81.78 kg No Primary Care Physician [facility] 02-09-2025 09:41-0400 Diastolic blood pressure 63 mm[Hg] No Primary Care Physician [facility] 02-09-2025 09:41-0400 Systolic blood pressure 95 mm[Hg] No Primary Care Physician [facility] 02-02-2025 11:47-0400 Body height 160.02 cm No Primary Care Physician [facility] 02-02-2025 11:47-0400 Body mass index (BMI) [Ratio] 32.1 kg/m2 No Primary Care Physician [facility] 02-02-2025 11:47-0400 Body weight 82.1 kg No Primary Care Physician [facility] 02-02-2025 11:47-0400 Diastolic blood pressure 67 mm[Hg] No Primary Care Physician [facility] 02-02-2025 11:47-0400 Systolic blood pressure 107 mm[Hg] No Primary Care Physician [facility] 01-25-2025 13:34-0400 Body height 160.02 cm No Primary Care Physician [facility] 01-25-2025 13:34-0400 Body mass index (BMI) [Ratio] 32.4 kg/m2 No Primary Care Physician [facility] 01-25-2025 13:34-0400 Body weight 83.12 kg No Primary Care Physician [facility] 01-25-2025 13:34-0400 Diastolic blood pressure 69 mm[Hg] No Primary Care Physician [facility] 01-25-2025 13:34-0400 Systolic blood pressure 109 mm[Hg] No Primary Care Physician [facility] 01-15-2025 10:18-0400 Body height 160.02 cm No Primary Care Physician [facility] 01-15-2025 10:18-0400 Body mass index (BMI) [Ratio] 31.8 kg/m2 No Primary Care Physician [facility] 01-15-2025 10:18-0400 Body weight 81.64 kg No Primary Care Physician [facility] 01-15-2025 10:18-0400 Diastolic blood pressure 61 mm[Hg] No Primary Care Physician [facility] 01-15-2025 10:18-0400 Heart rate 73 /min No Primary Care Physician [facility] 01-15-2025 10:18-0400 Systolic blood pressure 100 mm[Hg] No Primary Care Physician [facility] 01-02-2025 11:15-0400 Body height 160.02 cm No Primary Care Physician [facility] 01-02-2025 11:15-0400 Body mass index (BMI) [Ratio] 32.1 kg/m2 No Primary Care Physician [facility] 01-02-2025 11:15-0400 Body weight 82.27 kg No Primary Care Physician [facility] 01-02-2025 11:15-0400 Diastolic blood pressure 62 mm[Hg] No Primary Care Physician [facility] 01-02-2025 11:15-0400 Systolic blood pressure 103 mm[Hg] No Primary Care Physician [facility] 12-18-2024 10:23-0400 Body height 160.02 cm No Primary Care Physician [facility] 12-18-2024 10:23-0400 Body mass index (BMI) [Ratio] 31.4 kg/m2 No Primary Care Physician [facility] 12-18-2024 10:23-0400 Body weight 80.45 kg No Primary Care Physician [facility] 12-18-2024 10:23-0400 Diastolic blood pressure 60 mm[Hg] No Primary Care Physician [facility] 12-18-2024 10:23-0400 Systolic blood pressure 98 mm[Hg] No Primary Care Physician [facility] 12-07-2024 09:16-0400 Body mass index (BMI) [Ratio] 31.9 kg/m2 No Primary Care Physician [facility] 12-07-2024 09:16-0400 Body weight 81.87 kg No Primary Care Physician [facility] 12-07-2024 09:16-0400 Diastolic blood pressure 66 mm[Hg] No Primary Care Physician [facility] 12-07-2024 09:16-0400 Systolic blood pressure 103 mm[Hg] No Primary Care Physician [facility] 11-14-2024 10:15-0400 Body height 160.02 cm No Primary Care Physician [facility] 11-14-2024 10:14-0400 Body mass index (BMI) [Ratio] 30.7 kg/m2 No Primary Care Physician [facility] 11-14-2024 10:14-0400 Body weight 78.64 kg No Primary Care Physician [facility] 11-14-2024 10:14-0400 Diastolic blood pressure 60 mm[Hg] No Primary Care Physician [facility] 11-14-2024 10:14-0400 Systolic blood pressure 96 mm[Hg] No Primary Care Physician [facility] 10-19-2024 09:28-0400 Body mass index (BMI) [Ratio] 30.3 kg/m2 No Primary Care Physician [facility] 10-19-2024 09:28-0400 Body weight 77.67 kg No Primary Care Physician [facility] 10-19-2024 09:28-0400 Diastolic blood pressure 62 mm[Hg] No Primary Care Physician [facility] 10-19-2024 09:28-0400 Systolic blood pressure 97 mm[Hg] No Primary Care Physician [facility] 09-07-2024 09:37-0500 Body mass index (BMI) [Ratio] 29 kg/m2 No Primary Care Physician [facility] 09-07-2024 09:37-0500 Body weight 74.38 kg No Primary Care Physician [facility] 09-07-2024 09:37-0500 Diastolic blood pressure 70 mm[Hg] No Primary Care Physician [facility] 09-07-2024 09:37-0500 Systolic blood pressure 109 mm[Hg] No Primary Care Physician [facility] 08-07-2024 09:48-0500 Body mass index (BMI) [Ratio] 27.8 kg/m2 No Primary Care Physician [facility] 08-07-2024 09:48-0500 Body weight 71.21 kg No Primary Care Physician [facility] 08-07-2024 09:48-0500 Diastolic blood pressure 72 mm[Hg] No Primary Care Physician [facility] 08-07-2024 09:48-0500 Systolic blood pressure 105 mm[Hg] No Primary Care Physician [facility] 02-18-2024 16:47-0400 Body height 160 cm Marcella Conn [employer]IE MAINTENANCE Work Phone: [facility] 02-18-2024 16:47-0400 Body mass index (BMI) [Ratio] 25.51 kg/m2 Marcella Jeronimo [employer]IE MAINTENANCE Work Phone: [facility] 02-18-2024 16:47-0400 Body temperature 98.01 [degF] Marcella Allen DIE MAINTENANCE Work Phone: [facility] 02-18-2024 16:47-0400 Body weight 65.32 kg Marcella Conn [employer]IE MAINTENANCE Work Phone: [facility] 02-18-2024 16:47-0400 Diastolic blood pressure 70 mm[Hg] Marcella Jeronimo DIE MAINTENANCE Work Phone: [facility] 02-18-2024 16:47-0400 Heart rate 71 /min Marcella Allen [employer] MAINTENA[employer]CE Work Phone: [facility] 02-18-2024 16:47-0400 Respiratory rate 17 /min Marcella Allen [employer] MAINTENA[employer] Work Phone: [facility] 02-18-2024 16:47-0400 SaO2% (BldA) [Mass fraction] 98 % Marcella Allen [employer] MAINTENANCE Work Phone: [facility] 02-18-2024 16:47-0400 Systolic blood pressure 114 mm[Hg] Marcella Jeronimo DIE MAINTENANCE Work Phone: [facility] 12-10-2023 14:13-0400 Body height 160 cm Malaika Chao PA-C Work Phone: [facility] 12-10-2023 14:13-0400 Body mass index (BMI) [Ratio] 25.86 kg/m2 Malaika Ceronort PA-C Work Phone: [facility] 12-10-2023 14:13-0400 Body temperature 98.49 [degF] Malaika Lamport PA-C Work Phone: [facility] 12-10-2023 14:13-0400 Body weight 66.22 kg Malaika Lamport PA-C Work Phone: [facility] 12-10-2023 14:13-0400 Diastolic blood pressure 69 mm[Hg] Malaika Lamport PA-C Work Phone: [facility] 12-10-2023 14:13-0400 Heart rate 60 /min Malaika Lamport PA-C Work Phone: [facility] 12-10-2023 14:13-0400 Respiratory rate 14 /min Malaika Lamport PA-C Work Phone: [facility] 12-10-2023 14:13-0400 SaO2% (BldA) [Mass fraction] 98 % Malaika Lamport PA-C Work Phone: [facility] 12-10-2023 14:13-0400 Systolic blood pressure 108 mm[Hg] Malaika Lamport PA-C Work Phone: [facility] 06-23-2023 08:53-0500 Body height 160.02 cm No Primary Care Physician [facility] 06-23-2023 08:52-0500 Body mass index (BMI) [Ratio] 26.7 kg/m2 No Primary Care Physician [facility] 06-23-2023 08:52-0500 Body weight 68.49 kg No Primary Care Physician [facility] 06-23-2023 08:52-0500 Diastolic blood pressure 70 mm[Hg] No Primary Care Physician [facility] 06-23-2023 08:52-0500 Systolic blood pressure 103 mm[Hg] No Primary Care Physician [facility] 11-24-2022 13:02-0400 Body height 160.02 cm No Primary Care Physician [facility] 11-24-2022 13:02-0400 Body mass index (BMI) [Ratio] 28.5 kg/m2 No Primary Care Physician [facility] 11-24-2022 13:02-0400 Body weight 73.19 kg No Primary Care Physician [facility] 11-24-2022 13:02-0400 Diastolic blood pressure 66 mm[Hg] No Primary Care Physician [facility] 11-24-2022 13:02-0400 Systolic blood pressure 105 mm[Hg] No Primary Care Physician [facility] 01-16-2022 13:53-0400 Body height 160.02 cm No Primary Care Physician [facility] Work Phone: 01-16-2022 13:51-0400 Body mass index (BMI) [Ratio] 25.9 kg/m2 No Primary Care Physician [facility] Work Phone: 01-16-2022 13:51-0400 Body weight 66.39 kg No Primary Care Physician [facility] Work Phone: 01-16-2022 13:51-0400 Diastolic blood pressure 64 mm[Hg] No Primary Care Physician [facility] Work Phone: 01-16-2022 13:51-0400 Systolic blood pressure 92 mm[Hg] No Primary Care Physician [facility] Work Phone: Encounters Encounter Date Encounter Type Care Provider Facility Start: 02-12-2025 End: 02-12-2025 ambulatory No Primary Care Physician Facility:[facility] [place] [place] Start: 02-12-2025 End: 02-12-[address] Charlene Caro DO -[facility] Work Phone: Start: 02-09-2025 End: 02-09-2025 Patient encounter procedure Ricardo Singh [facility] -[facility] Work Phone: Start: 02-09-2025 End: 02-09-2025 ambulatory No Primary Care Physician -[facility] Start: 02-02-2025 End: 02-02-2025 Patient encounter procedure Yazmin Esposito [facility] -[facility] Work Phone: Start: 02-02-2025 End: 02-02-2025 ambulatory No Primary Care Physician -[facility] Care Start: 01-25-2025 End: 01-25-2025 Patient encounter procedure Ricardo Singh CNM -[facility] Work Phone: Start: 01-25-2025 End: 01-25-2025 ambulatory No Primary Care Physician -[facility] Start: 01-15-2025 End: 01-15-2025 ambulatory No Primary Care Physician -Laboratory Specimen Start: 01-15-2025 End: 01-15-2025 Patient encounter procedure Ricardo ARREAGA -Laboratory Specimen Work Phone: Start: 01-15-2025 End: 01-15-2025 Patient encounter procedure Ricardo Singh CNM -[facility] Work Phone: Start: 01-15-2025 End: 01-15-2025 ambulatory No Primary Care Physician -[facility] Start: 01-15-2025 End: 01-15-2025 ambulatory No Primary Care Physician Facility:[facility] Start: 01-02-2025 End: 01-02-[address] Lily Vila MD -[facility] Work Phone: Start: 01-02-2025 End: 01-02-2025 ambulatory No Primary Care Physician [facility] Work Phone: Start: 12-18-2024 End: 12-18-2024 Patient encounter procedure Neyda DESOUZA -[facility] Work Phone: Start: 12-18-2024 End: 12-18-2024 ambulatory No Primary Care Physician [facility] Work Phone: Start: 12-07-2024 End: 12-07-[address] Lily Vila MD -[facility] Work Phone: Start: 12-07-2024 End: 12-07-2024 ambulatory No Primary Care Physician Facility:[facility] [place] [place] Start: 11-14-2024 End: 11-14-2024 ambulatory No Primary Care Physician [facility] Work Phone: Start: 11-14-2024 End: 11-14-2024 Patient encounter procedure Neyda DESOUZA -[facility] Work Phone: Start: 11-14-2024 End: 11-14-2024 ambulatory Charlene Caro Facility:[facility] Start: 10-19-2024 End: 10-19-[address] Charlene Caro DO -[facility] Work Phone: Start: 10-19-2024 End: 10-19-2024 ambulatory Charlene Caro Facility:[facility] Start: 09-28-2024 End: 09-28-2024 ambulatory MD NO PRIMARY CARE [facility] Start: 09-07-2024 End: 09-07-[address] Lily Vila MD -[facility] Work Phone: Start: 09-07-2024 End: 09-07-2024 ambulatory No Primary Care Physician Facility:[facility] Start: 08-07-2024 End: 08-07-2024 Patient encounter procedure Ricardo Singh CNM -[facility] Work Phone: Start: 08-07-2024 End: 08-07-2024 ambulatory No Primary Care Physician Facility:[facility] Start: 08-07-2024 End: 08-07-2024 ambulatory No Primary Care Physician Facility:[facility] Start: 07-06-2024 End: 07-06-2024 ambulatory No Primary Care Physician Facility:[facility] Start: 07-06-2024 End: 07-06-2024 ambulatory No Primary Care Physician Facility:[facility] Start: 04-13-2024 End: 04-13-2024 ambulatory No Primary Care Physician Facility:[facility] Start: 02-18-2024 End: 02-18-2024 Office outpatient visit 15 minutes Marcella Allen CNP Work Phone: [facility] Comment on above: Dysuria (Primary Dx) ; Abnormal urinalysis; Vaginal pain; Vaginal itching Start: 02-18-2024 End: 02-18-2024 ambulatory MARCELLA ALLEN [facility] Start: 12-10-2023 End: 12-10-2023 ambulatory PHYSICIAN NO [facility] Start: 12-10-2023 End: 12-10-2023 Office outpatient new 30 minutes Malaika Chao PA-C Work Phone: [facility] Comment on above: Dysuria (Primary Dx) ; Urinary frequency; Flank pain Start: 06-23-2023 End: 06-23-2023 ambulatory No Primary Care Physician [facility] Work Phone: Start: 06-23-2023 End: 06-23-2023 Patient encounter procedure No Primary Care Physician [facility]-Laboratory, Specimen Work Phone: Start: 06-23-2023 End: 06-23-2023 Patient encounter procedure No Primary Care Physician [facility] Work Phone: Start: 11-26-2022 End: 11-26-2022 ambulatory SAMUEL SANTA Facility:[facility] Start: 11-26-2022 End: 11-26-2022 Patient encounter procedure Samuel Santa OD Work Phone: Optometry Comment on above: Myopia, bilateral (P rimary Dx); Regular astigmatism of both eyes Start: 11-24-2022 End: 11-24-2022 ambulatory No Primary Care Physician [facility] Work Phone: Start: 11-24-2022 End: 11-24-2022 Patient encounter procedure No Primary Care Physician [facility]-Laboratory, Specimen Start: 11-24-2022 End: 11-24-2022 Patient encounter procedure No Primary Care Physician [facility] Start: 11-09-2022 End: 11-09-2022 ambulatory SAMUEL PINZONER Facility:[facility] Start: 11-09-2022 End: 11-09-2022 Patient encounter procedure Samuel Santa OD Work Phone: Optometry Comment on above: Myopia, bilateral (P rimary Dx); Regular astigmatism of both eyes Start: 01-16-2022 End: 01-16-2022 Patient encounter procedure No Primary Care Physician [facility]-Laboratory, Specimen Start: 01-16-2022 End: 01-16-2022 Patient encounter procedure No Primary Care Physician [facility] Start: 03-28-2018 End: 03-29-2018 Patient encounter Marlon Charly Tova Facility:[facility] Start: 03-28-2018 End: 03-29-2018 Patient encounter Marlon Parks [facility] Facility:[facility] Start: 03-28-2018 Patient encounter Facil [id number] Procedures Date Procedure Procedure Detail Performing Clinician Start: 01-15-2025 Beta-hemolytic Streptococcus culture No Primary Care Physician Start: 11-14-2024 Serologic test for syphilis No Primary Care Physician Start: 08-07-2024 Hepatitis B surface antigen measurement No Primary Care Physician Start: 08-07-2024 Hepatitis C antibody measurement No Primary Care Physician Comment on above: Non Reactive: < 0.8 Equivocal: >/= 0.8 to < 1.0 Reactive: >/= 1.0The CDC requires that a reactive/equivocal HCV antibody result be sent out for confirmation. HCV Quant by PCR testing. Start: 08-07-2024 Rubella IgG measurement No Primary Care Physician Comment on above: Antibody Results Int erpretation of Immune Status Non Reactive Presumed Non-Immune Equivocal Equivocal Reactive Presumed Immune Start: 02-18-2024 Smr prim src wet jaylin nt nfct agt Marcella Allen [employer] Work Phone: Start: 02-18-2024 Urnls dip stick/tabl et rgnt auto w/o microscopy Marcella Allen [employer] Work Phone: Start: 12-10-2023 Urnls dip stick/tabl et rgnt auto w/o microscopy Malaika Chao PA-C Work Phone: Start: 06-23-2023 Cytopathology proced ure, preparation of smear, genital source No Primary Care Physician Start: 06-23-2023 Investigation of transfusion reaction No Primary Care Physician Cytopathology proced ure, preparation of smear, genital source No Primary Care Physician Cytopathology proced ure, preparation of smear, genital source No Primary Care Physician Investigation of transfusion reaction No Primary Care Physician Investigation of transfusion reaction No Primary Care Physician Plan of Treatment Date Care Activity Detail Author Start: 08-21-2030 Tetanus vaccination Tetanus: Every 1 0yrs [facility] Start: 01-07-2026 Urine microalbumin profile DTAP,TDAP,TD (3 - Td or Tdap) [facility] Start: 03-19-2024 Influenza vaccination [facility] Start: 03-19-2023 COVID-19 Vaccine ( season) COVID-19 Vaccine ( season) [facility] Start: 03-19-2023 Influenza vaccination INFLUENZ A (Season Ended) [facility] Start: 07-19-2022 DEPRESSION ASSESSMENT DEPRESSION ASS ESSMENT [facility] Start: 07-02-2021 PAP TESTING PAP TESTING [facility] Start: 2020 HPV TESTING HPV TESTING [facility] Start: 2020 Screening for malign ant neoplasm of cervix [facility] Start: 2011 Screening for malign ant neoplasm of cervix Pap Smear [facility] Start: 2008 HEPATITIS C SCREENING HEPATITIS C SC [facility] Start: 2008 Hepatitis C screening Hepatitis C [facility] Start: 2005 HIV screening HIV Screening [facility] Start: 2002 Depression screening using PHQ-9 (Patient Health Questionnaire 9) score [facility] Start: 1993 History and physical examination, annual for health maintenance Wellness Visit [facility] Start: 1990 COVID-19 VACCINE (#1) COVID-19 VACCI NE (#1) [facility] Start: 1990 HEPATITIS B (1 of 3 - 3-dose series) HEPATITIS B (1 of 3 - 3-dose series) [facility] Bacteria identified in Unspecified specimen by Aerobe culture Urine Aerobic Culture Microbiology Routine Urinary frequency Dysuria Flank pain 12/10/2023 2:38 PM EDT [facility] Work Phone: Bacteria identified in Unspecified specimen by Aerobe culture Urine Aerobic Culture Microbiology Routine Dysuria Abnormal urinalysis Ordered: 02/18/2024 [facility] Work Phone: Comment on above: Ordered: 02/18/2024 Cast care: wet Wet Preparation Microbiology Routine Vaginal pain Vaginal itching Ordered: 02/18/2024 [facility] Comment on above: Ordered: 02/18/2024 Streptococcus agalac tiae [Presence] in Unspecified specimen by Organism specific culture [facility] Immunizations Immunization Date Immunization Notes Care Provider Fa katarina 08-21-2020 tetanus toxoid, reduced diphtheria toxoid, and acellular pertussis vaccine, adsorbed No Primary Care Physician [facility] 01-08-2016 tetanus toxoid, reduced diphtheria toxoid, and acellular pertussis vaccine, adsorbed Samuelmartin Santa OD Work Phone: [facility] 10-17-2014 tetanus toxoid, reduced diphtheria toxoid, and acellular pertussis vaccine, adsorbed No Primary Care Physician [facility] Work Phone: 04-26-2014 Influenza virus vaccine No Primary Care Physician [facility] Payers Date Payer Category Payer Self-pay [id number] 2014 Unknown [id number] 2014 Unknown 2014 Unknown [id number] 2014 Unknown ALVAREZ [id number] 2014 Unknown [id number] 1990 Unknown [id number] 2. [id number] 1990 Unknown [id number] 2. [id number] 1990 Unknown [id number] 2.16 [id number] Unknown [id number] 2.16.8 [id number] Unknown [id number] 2.16.8 40.1.089041.3.579.2.462 Unknown [id number] 2.16.8 40.1.421578.3.579.2.462 Unknown [id number] 2.16.8 40.1.621441.3.579.2.462 Unknown [id number] 2.16.8 40.1.807795.3.579.2.462 Unknown [id number] 2.16.8 40.1.535517.3.579.2.462 Unknown [id number] 2.16.8 40.1.157522.3.579.2.462 Unknown [id number] 2.16.8 40.1.213626.3.579.2.462 Unknown [id number] 2.16.8 40.1.810931.3.579.2.462 Unknown [id number] 2.16.8 40.1.031517.3.579.2.462 Unknown [id number] 2.16.8 40.1.799120.3.579.2.462 Unknown [id number] 2.16.8 40.1.601573.3.579.2.462 Unknown [id number] 2.16.8 40.1.836088.3.579.2.462 Unknown [id number] 2.16.8 40.1.459596.3.579.2.462 Unknown [id number] 2.16.8 40.1.086319.3.579.2.462 Unknown [id number] 2.16.8 40.1.070793.3.579.2.462 Unknown [id number] 2.16.8 40.1.064038.3.579.2.462 Unknown [id number] 2.16.8 [id number] Social History Date Type Detail Facility Start: 01-16-2022 End: 06-23-2023 Tobacco smoking status NHIS Unknown if ever smoked [facility] Start: 1990 Sex Assigned At Female [facility] Start: 03-30-2013 End: 07-06-2024 Tobacco smoking status NHIS Never smoked tobacco [facility] Work Phone: Start: 03-30-2013 End: 12-10-2023 Tobacco use and exposure Smokeless tobacco non-user [facility] Work Phone: Start: 11-09-2022 End: 11-26-2022 Alcohol intake Current drinker of alcohol (finding) [facility] Start: 02-18-2018 Alcohol Comment Rarely [facility] Start: 1990 Sex Assigned At Not on file [facility] Start: 12-10-2023 End: 02-18-2024 Alcohol intake Ex-drinker (finding) [facility] Start: 08-19-2014 End: 12-10-2023 History of Social function [facility] Start: 08-19-2014 End: 12-10-2023 Tobacco use panel [facility] Start: 02-18-2024 Gender identity Identifies as female gender (finding) [facility] Start: 02-18-2024 Sexual orientation Heterosexual (finding) [facility] Clinical Notes 03-18-2016 to 01-25-2025 Note Date & Type Note Facility 01-25-2025 Progress note [facility] 01-15-2025 Progress note [facility] 10-19-2024 Evaluation note Diagnosis Onset Date Resolution Cystic fibrosis carrier, antepartum acute October 19, 9:25am acute October 19 9:25am Supervision of high-risk acute October 19 9:25am Cystic fibrosis carrier, antepartum acute November 14, 2024 10:07am acute November 14 10:07am Supervision of high-risk acute November 14, 2024 10:07am Cystic fibrosis carrier, antepartum acute December 07 9:05am acute December 07, 2024 9:05am Supervision of high-risk acute December 07 9:05am Cystic fibrosis carrier, antepartum acute December 18 10:20am acute December 18, 2024 10:20am Supervision of high-risk acute December 18 10:20am Cystic fibrosis carrier, antepartum acute January 02, 025 11:20am acute January 02 11:20am Supervision of high-risk acute January 02 025 11:20am Cystic fibrosis carrier, antepartum acute January 15 025 10:16am acute January 15 10:16am Supervision of high-risk acute January 15, 025 10:16am [facility] Work Phone: 1(473) 192-837804-03-2025 Evaluation note* Diagnosis Onset Date Resolution Status Admit Date Cystic fibrosis carrier, antepartum acute October 19, 2024 9:25am acute October 19 9:25am Supervision of high-risk acute October 19, 2024 9:25am Cystic fibrosis carrier, antepartum acute November 14, 2024 10:07am acute November 14 10:07am Supervision of high-risk acute November 14, 2024 10:07am Cystic fibrosis carrier, antepartum acute December 07, 2024 9 :05am acute December 07, 2024 9:05am Supervision of high-risk acute December 07, 2024 9 :05am Cystic fibrosis carrier, antepartum acute December 18, 2024 1 0:20am acute December 18, 2024 10:20am Supervision of high-risk acute December 18, 2024 1 0:20am Cystic fibrosis carrier, antepartum acute January 02, 2025 11:20am acute January 02 11:20am Supervision of high-risk acute January 02, 2025 11:20am Cystic fibrosis carrier, antepartum acute January 15, 2025 10:16am acute January 15 10:16am Supervision of high-risk acute January 15, 2025 10:16am Cystic fibrosis carrier, antepartum acute January 25, 2025 1:29pm acute January 25 1:29pm Supervision of high-risk acute January 25, 2025 1:29pm [facility] Work Phone: 1(152) 948-377404-03-2025 Evaluation note* Diagnosis Onset Date Resolution Status Admit Date Cystic fibrosis carrier, antepartum acute October 19, 2024 9:25am acute October 19 9:25am Supervision of high-risk acute October 19, 2024 9:25am Cystic fibrosis carrier, antepartum acute November 14, 2024 10:07am acute November 14 10:07am Supervision of high-risk acute November 14, 2024 10:07am Cystic fibrosis carrier, antepartum acute December 07, 2024 9 :05am acute December 07, 2024 9:05am Supervision of high-risk acute December 07, 2024 9 :05am Cystic fibrosis carrier, antepartum acute December 18, 2024 1 0:20am acute December 18, 2024 10:20am Supervision of high-risk acute December 18, 2024 1 0:20am Cystic fibrosis carrier, antepartum acute January 02, 2025 11:20am acute January 02 11:20am Supervision of high-risk acute January 02, 2025 11:20am Cystic fibrosis carrier, antepartum acute January 15, 2025 10:16am acute January 15 10:16am Supervision of high-risk acute January 15, 2025 10:16am Cystic fibrosis carrier, antepartum acute January 25, 2025 1:29pm acute January 25 1:29pm Supervision of high-risk acute January 25, 2025 1:29pm Cystic fibrosis carrier, antepartum acute February 02, 2025 11:45am acute February 02 11:45am Supervision of high-risk acute February 02, 2025 11:45am [facility] Work Phone: 1(158) 111-199904-03-2025 Evaluation note* Diagnosis Onset Date Resolution Status Admit Date Cystic fibrosis carrier, antepartum acute October 19, 2024 9:25am acute October 19 9:25am Supervision of high-risk acute October 19, 2024 9:25am Cystic fibrosis carrier, antepartum acute November 14, 2024 10:07am acute November 14 10:07am Supervision of high-risk acute November 14, 2024 10:07am Cystic fibrosis carrier, antepartum acute December 07, 2024 9 :05am acute December 07, 2024 9:05am Supervision of high-risk acute December 07, 2024 9 :05am Cystic fibrosis carrier, antepartum acute December 18, 2024 1 0:20am acute December 18, 2024 10:20am Supervision of high-risk acute December 18, 2024 1 0:20am Cystic fibrosis carrier, antepartum acute January 02, 2025 11:20am acute January 02 11:20am Supervision of high-risk acute January 02, 2025 11:20am Cystic fibrosis carrier, antepartum acute January 15, 2025 10:16am acute January 15 10:16am Supervision of high-risk acute January 15, 2025 10:16am Cystic fibrosis carrier, antepartum acute January 25, 2025 1:29pm acute January 25 1:29pm Supervision of high-risk acute January 25, 2025 1:29pm Cystic fibrosis carrier, antepartum acute February 02, 2025 11:45am acute February 02 11:45am Supervision of high-risk acute February 02, 2025 11:45am Cystic fibrosis carrier, antepartum acute February 09, 2025 9:38am acute February 09 9:38am Supervision of high-risk acute February 09, 2025 9:38am [facility] Work Phone: 1(703) 104-744404-03-2025 Evaluation note* Diagnosis Onset Date Resolution Status Admit Date Cystic fibrosis carrier, antepartum acute October 19, 2024 9:25am acute October 19 9:25am Supervision of high-risk acute October 19, 2024 9:25am Cystic fibrosis carrier, antepartum acute November 14, 2024 10:07am acute November 14 10:07am Supervision of high-risk acute November 14, 2024 10:07am Cystic fibrosis carrier, antepartum acute December 07, 2024 9 :05am acute December 07, 2024 9:05am Supervision of high-risk acute December 07, 2024 9 :05am Cystic fibrosis carrier, antepartum acute December 18, 2024 1 0:20am acute December 18, 2024 10:20am Supervision of high-risk acute December 18, 2024 1 0:20am Cystic fibrosis carrier, antepartum acute January 02, 2025 11:20am acute January 02 11:20am Supervision of high-risk acute January 02, 2025 11:20am Cystic fibrosis carrier, antepartum acute January 15, 2025 10:16am acute January 15 10:16am Supervision of high-risk acute January 15, 2025 10:16am Cystic fibrosis carrier, antepartum acute January 25, 2025 1:29pm acute January 25 1:29pm Supervision of high-risk acute January 25, 2025 1:29pm Cystic fibrosis carrier, antepartum acute February 02, 2025 11:45am acute February 02 11:45am Supervision of high-risk acute February 02, 2025 11:45am Cystic fibrosis carrier, antepartum acute February 09, 2025 9:38am acute February 09 9:38am Supervision of high-risk acute February 09, 2025 9:38am Cystic fibrosis carrier, antepartum acute February 12, 2025 3:47pm acute February 12 3:47pm Supervision of high-risk acute February 12, 2025 3:47pm [facility] Work Phone: 1(436) 810-351802-20-2025 Evaluation note* Diagnosis Onset Date Resolution Status Admit Date Cystic fibrosis carrier, antepartum acute September 07 9:34am acute September 07, 2024 9:34am Supervision of high-risk acute September 07 9:34am Cystic fibrosis carrier, antepartum acute October 19, 2024 9:25am acute October 19 9:25am Supervision of high-risk acute October 19, 2024 9:25am Cystic fibrosis carrier, antepartum acute November 14, 2024 10:07am acute November 14 10:07am Supervision of high-risk acute November 14, 2024 10:07am Cystic fibrosis carrier, antepartum acute December 07, 2024 9 :05am acute December 07, 2024 9:05am Supervision of high-risk acute December 07, 2024 9 :05am Cystic fibrosis carrier, antepartum acute December 18, 2024 1 0:20am acute December 18, 2024 10:20am Supervision of high-risk acute December 18, 2024 1 0:20am [facility] Work Phone: 1(408) 590-707002-20-2025 Evaluation note* Diagnosis Onset Date Resolution Status Admit Date Cystic fibrosis carrier, antepartum acute September 07 9:34am acute September 07, 2024 9:34am Supervision of high-risk acute September 07 9:34am Cystic fibrosis carrier, antepartum acute October 19, 2024 9:25am acute October 19 9:25am Supervision of high-risk acute October 19, 2024 9:25am Cystic fibrosis carrier, antepartum acute November 14, 2024 10:07am acute November 14 10:07am Supervision of high-risk acute November 14, 2024 10:07am Cystic fibrosis carrier, antepartum acute December 07, 2024 9 :05am acute December 07, 2024 9:05am Supervision of high-risk acute December 07, 2024 9 :05am Cystic fibrosis carrier, antepartum acute December 18, 2024 1 0:20am acute December 18, 2024 10:20am Supervision of high-risk acute December 18, 2024 1 0:20am Cystic fibrosis carrier, antepartum acute January 02, 2025 11:20am acute January 02 11:20am Supervision of high-risk acute January 02, 2025 11:20am [facility] Work Phone: 1(476) 169-751001-20-2025 Evaluation note* Diagnosis Onset Date Resolution Status Admit Date Cystic fibrosis carrier, antepartum acute August 07 9:46am acute August 07, 2024 9:46am Supervision of high-risk acute August 07 9:46am Encounter for screening for other genetic defects resolved August 07 9:46am Exposure to Toxoplasma species resolved August 07 9:46am Recurrent candidiasis of vagina resolved August 07 9:46am Cystic fibrosis carrier, antepartum acute September 07, 9:34am acute September 07, 2024 9:34am Supervision of high-risk acute September 07 9:34am Cystic fibrosis carrier, antepartum acute October 19, 2024 9:25am acute October 19 9:25am Supervision of high-risk acute October 19, 2024 9:25am Cystic fibrosis carrier, antepartum acute November 14, 2024 10:07am acute November 14 10:07am Supervision of high-risk acute November 14, 2024 10:07am [facility] Work Phone: 1(785) 202-515308-02-2024 Instructions* Patient Instructions* Marcella Allen CNP - 02/18/2024 4:58 PM EDT Thank you for choosing [facility] for your healthcare needs today. Wet preparation results tomorrow. I sent in treatment for BV and Yeast. Urine culture results in 72 hours. You will be contacted if treatment required. Follow up any concerns. * Attachments The following attachments cannot be sent through Care Everywhere. * Vaginitis (Monegasque) documented in this [id number] NotePatient Name: [facility] Location: [place] [id number] Date Of : Date Of Visit: 1990 02/18/2024 MRN# Provider: [id number] Marcella Allen CNP Chief Complaint Patient presents with Vaginal Itching Vaginal itching, and burning, pain x 5 days, no concern for std Assessment & Plan 1. Dysuria POC Urinalysis Dipstick,Auto UC Urine Aerobic Culture 2. Abnormal urinalysis Urine Aerobic Culture 3. Vaginal pain Wet Preparation metroNIDAZOLE (FLAGYL) 500 MG tablet fluconazole (DIFLUCAN) 150 MG tablet 4. Vaginal itching Wet Preparation metroNIDAZOLE (FLAGYL) 500 MG tablet fluconazole (DIFLUCAN) 150 MG tablet No follow-ups on file. Medical Decision Making Client pleasant, non-toxic in NAD with concern for BV. Treated herself for yeast without improvement in symptoms. No concern for STI. Sexually active one partner. IUD. No discharge or odor. No lesions. Client agreeable to self-swab wet preparation to make correct diagnosis. Will treat for both patient preference. See H&P Consider: UTI, BV, Vaginal Yeast, UA - some abnormalities - culture sent Wet preparation - Flagyl/Diflucan Additional Clinical Comments Reviewed use/AE of medication. See AVS Subjective 33 y.o. female presents with Vaginal Itching (Vaginal itching, and burning, pain x 5 days, no concern for std ) Client with vaginal itching, burning and pain. No discharge. No concern for STI. Reports took Diflucan and used OTC one day Monistat treatment without relief. Concern for BV. No discharge or odor. Reports vaginal itching and burning. Vaginal Itching The patient's primary symptoms include genital itching. The patient's pertinent negatives include no genital lesions, genital odor or vaginal discharge. This is a new problem. The current episode started in the past 7 days. The problem occurs constantly. The problem has been unchanged. Associated symptoms include dysuria. Pertinent negatives include no flank pain or frequency. Review Of Systems Review of Systems Genitourinary: Positive for dysuria and vaginal pain. Negative for flank pain, frequency, genital sores and vaginal discharge. Vaginal itching. Nocturia - no. - no Medical History History reviewed. No pertinent past medical history. Past Surgical History: Procedure Laterality Date WISDOM TOOTH EXTRACTION There is no problem list on file for this patient. Social History Social History Tobacco Use Smoking status: Never Smokeless tobacco: Never Vaping Use Vaping status: Never Used Substance Use Topics Alcohol use: Not Currently Drug use: Never Family History No family history on file. Objective Physical Exam BP 114/70 Pulse 71 Temp 98 degrees F (36.7 degrees C) Resp 17 Ht 5' 3 Wt 65.3 kg (144 lb) SpO2 98% BMI 25.51 kg/m Vision/Hearing Exam:No results found. Physical Exam Vitals and nursing note reviewed. Constitutional: General: She is not in acute distress. Appearance: Normal appearance. She is not ill-appearing, toxic-appearing or diaphoretic. Cardiovascular: Rate and Rhythm: Normal rate. Pulmonary: Effort: Pulmonary effort is normal. No respiratory distress. Skin: General: Skin is warm and dry. Neurological: Mental Status: She is alert. Psychiatric: Mood and Affect: Mood normal. Behavior: Behavior normal. Procedure Notes Procedures Results Recent Results (from the past 168 hour(s)) POC Urinalysis Dipstick,Auto UC Collection Time: 02/18/24 4:52 PM Result Value Ref Range POC Color, Urine Yellow Yellow, Light Yellow, Dark Yellow Clarity, UA Clear Clear Glucose, UA Negative Normal, Negative mg/dL Bilirubin, UA Negative Negative Ketones, UA Negative Negative mg/dL Spec Grav, UA 1.010 1.005 - 1.025 Blood, UA Trace-lysed (A) Negative pH, UA 6.0 5.0 - 7.0 Protein, UA Negative Negative mg/dL Urobilinogen, UA 0.2 <2.0, 0.2, Normal, Negative, 1.0, 2.0, <1.0 mg/dL Nitrite, UA Negative Negative Leukocyte Esterase, UA Small (A) Negative No orders to display Orders Placed This Visit Orders Placed This Encounter Procedures Urine Aerobic Culture Wet Preparation POC Urinalysis Dipstick,Auto UC Medication List At End Of Visit Current Outpatient Medications Medication Sig Dispense Refill fluconazole (Diflucan) 100 MG tablet Take one tablet today, repeat second tab in 2 days if symptoms have not resolved. . 2 tablet 0 levonorgestreL (Liletta) 20.4 mcg/24 hr (8 yrs) 52 mg IUD IUD by Intrauterine route . fluconazole (DIFLUCAN) 150 MG tablet Take on tablet now and one upon completion of the antibiotic. . 2 tablet 0 metroNIDAZOLE (FLAGYL) 500 MG tablet Take 1 (one) tablet (500 mg total) by mouth 2 (two) times a day with meals for 7 days . 14 tablet 0 No current facility-administered medications for this visit. Patient Instructions Thank you for choosing [facility] for your healthcare need (more content not included)...[facility]08-02-2024 History of Present illness Narrative* Marcella Allen CNP - 02/18/2024 4:47 PM EDT Images from the original note were not included. Patient Name: [facility] Location: [address] [address] Date Of : Date Of Visit: 1990 02/18/2024 MRN# Provider: [id number] Marcella Allen CNP Chief Complaint Patient presents with Vaginal Itching Vaginal itching, and burning, pain x 5 days, no concern for std Assessment & Plan 1. Dysuria POC Urinalysis Dipstick,Auto UC Urine Aerobic Culture 2. Abnormal urinalysis Urine Aerobic Culture 3. Vaginal pain Wet Preparation metroNIDAZOLE (FLAGYL) 500 MG tablet fluconazole (DIFLUCAN) 150 MG tablet 4. Vaginal itching Wet Preparation metroNIDAZOLE (FLAGYL) 500 MG tablet fluconazole (DIFLUCAN) 150 MG tablet No follow-ups on file. Medical Decision Making Client pleasant, non-toxic in NAD with concern for BV. Treated herself for yeast without improvement in symptoms. No concern for STI. Sexually active one partner. IUD. No discharge or odor. No lesions. Client agreeable to self-swab wet preparation to make correct diagnosis. Will treat for both patient preference. See H&P Consider: UTI, BV, Vaginal Yeast, UA - some abnormalities - culture sent Wet preparation - Flagyl/Diflucan Additional Clinical Comments Reviewed use/AE of medication. See AVS Subjective 33 y.o. female presents with Vaginal Itching (Vaginal itching, and burning, pain x 5 days, no concern for std ) Client with vaginal itching, burning and pain. No discharge. No concern for STI. Reports took Diflucan and used OTC one day Monistat treatment without relief. Concern for BV. No discharge or odor. Reports vaginal itching and burning. Vaginal Itching The patient's primary symptoms include genital itching. The patient's pertinent negatives include no genital lesions, genital odor or vaginal discharge. This is a new problem. The current episode started in the past 7 days. The problem occurs constantly. The problem has been unchanged. Associated symptoms include dysuria. Pertinent negatives include no flank pain or frequency. Review Of Systems Review of Systems Genitourinary: Positive for dysuria and vaginal pain. Negative for flank pain, frequency, genital sores and vaginal discharge. Vaginal itching. Nocturia - no. - no Medical History History reviewed. No pertinent past medical history. Past Surgical History: Procedure Laterality Date WISDOM TOOTH EXTRACTION There is no problem list on file for this patient. Social History Social History Tobacco Use Smoking status: Never Smokeless tobacco: Never Vaping Use Vaping status: Never Used Substance Use Topics Alcohol use: Not Currently Drug use: Never Family History No family history on file. Objective Physical Exam BP 114/70 Pulse 71 Temp 98 F (36.7 C) Resp 17 Ht 5' 3 Wt 65.3 kg (144 lb) SpO2 98% BMI 25.51 kg/m Vision/Hearing Exam:No results found. Physical Exam Vitals and nursing note reviewed. Constitutional: General: She is not in acute distress. Appearance: Normal appearance. She is not ill-appearing, toxic-appearing or diaphoretic. Cardiovascular: Rate and Rhythm: Normal rate. Pulmonary: Effort: Pulmonary effort is normal. No respiratory distress. Skin: General: Skin is warm and dry. Neurological: Mental Status: She is alert. Psychiatric: Mood and Affect: Mood normal. Behavior: Behavior normal. Procedure Notes Procedures Results Recent Results (from the past 168 hour(s)) POC Urinalysis Dipstick,Auto UC Collection Time: 02/18/24 4:52 PM Result Value Ref Range POC Color, Urine Yellow Yellow, Light Yellow, Dark Yellow Clarity, UA Clear Clear Glucose, UA Negative Normal, Negative mg/dL Bilirubin, UA Negative Negative Ketones, UA Negative Negative mg/dL Spec Grav, UA 1.010 1.005 - 1.025 Blood, UA Trace-lysed (A) Negative pH, UA 6.0 5.0 - 7.0 Protein, UA Negative Negative mg/dL Urobilinogen, UA 0.2 <2.0, 0.2, Normal, Negative, 1.0, 2.0, <1.0 mg/dL Nitrite, UA Negative Negative Leukocyte Esterase, UA Small (A) Negative No orders to display Orders Placed This Visit Orders Placed This Encounter Procedures Urine Aerobic Culture Wet Preparation POC Urinalysis Dipstick,Auto UC Medication List At End Of Visit Current Outpatient Medications Medication Sig Dispense Refill fluconazole (Diflucan) 100 MG tablet Take one tablet today, repeat second tab in 2 days if symptomshave not resolved. . 2 tablet 0 levonorgestreL (Liletta) 20.4 mcg/24 hr (8 yrs) 52 mg IUD IUD by Intrauterine route . fluconazole (DIFLUCAN) 150 MG tablet Take on tablet now and one upon completion of the antibiotic. . 2 tablet 0 metroNIDAZOLE (FLAGYL) 500 MG tablet Take 1 (one) tablet (500 mg total) by mouth 2 (two) times a day with meals for 7 days . 14 tablet 0 No current facility-administered medications for this visit. Patient Instructions Thank you for choosing [facility] for your healthcare needs today. Wet preparation results tomorrow. I sent in treatment for BV and Yeast. Urine culture results in 72 hours. You will be contacted if treatment required. Follow up any concerns. documented in this [id number] Instructions* Patient Instructions* Malaika Chao PA-C - 12/10/2023 2:40 PM EDT [place], Dysuria, urinary frequency, hematuria Urine dip - cannot read due to Azo Urine culture - results pending Cephalexin - antibiotic Diflucan - yeast infection if symptomatic Push fluids. Rest. You can take cranberry pills or drink plain cranberry juice - there are mixed reviews on if this is truly effective in stopping bacteria from adhering to bladder wall--- It wont hurt to use it! Any worsening symptoms: cannot urinate, worsening current symptoms, gross hematuria, doc temp, n/v,sob, weakness, or any other concerns--ER! If your urine does show infection (positive culture results) then make sure to F/u with your pcp for recheck of urine in 7-10 days (as long as symptoms are improving). GET BETTER!!! * Attachments The following attachments cannot be sent through Care Everywhere. * Dysuria (Monegasque) documented in this [id number] NotePatient Name: [facility] Location: [place] [address] Date Of : Date Of Visit: 1990 12/10/2023 MRN# Provider: [id number] Malaika Chao PA-C Chief Complaint Patient presents with Urinary Tract Infection Dysuria, backache, slight hematuria x 2 days. Took azo. If needs antibiotic would like diflucan sent in Assessment & Plan 1. Urinary frequency POC Urinalysis Dipstick,Auto UC No follow-ups on file. Medical Decision Making Last UTI 1-2 years ago No hx of kidney stones, + MGF, PGF with kidney stones Urinary frequency, dysuria, a little tinge of blood yesterday, did not notice today. No abd / pelvic pain, abnl vag dc or abnl bleeding. No abd PSH No hx of sti Sexually active one partner - No painful intercourse. No female hx. Not . Pt has both kidneys, no recent instrumentation or procedures. No gross hematuria, fever/chills, n/v, no urologist. Denies hx of kidney stones, stents or lithotripsy. No renal transplant. Dysuria, Urinary frequency, Flank pain R Urine dip - cannot read secondary to azo Urine culture sent Cephalexin x 10 days due to flank pain (subjective) no palp flank ttp or visible ecchymosis. Diflucan per request with hx of vaginal yeast infections Any worsening symptoms - ER! See AVS. Additional Clinical Comments Pt is nontoxic, afebrile, w/o ams and verbalized good understanding and agreement. Subjective 33 y.o. female presents with Urinary Tract Infection (Dysuria, backache, slight hematuria x 2 days. Took azo. If needs antibiotic would like diflucan sent in) HPI Review Of Systems Review of Systems Constitutional: Negative for activity change, appetite change, chills, fever and unexpected weight change. HENT: Negative for sore throat. Respiratory: Negative for cough and shortness of breath. Cardiovascular: Negative for chest pain, palpitations and leg swelling. Gastrointestinal: Negative for abdominal pain, blood in stool, constipation, diarrhea, nausea and vomiting. Genitourinary: Positive for dysuria, flank pain and frequency. Negative for decreased urine volume, difficulty urinating, dyspareunia, enuresis, genital sores, hematuria, menstrual problem, pelvic pain, urgency, vaginal bleeding, vaginal discharge and vaginal pain. Musculoskeletal: Negative for joint swelling, myalgias, neck pain and neck stiffness. Skin: Negative for rash. Psychiatric/Behavioral: Negative for confusion. Medical History History reviewed. No pertinent past medical history. Past Surgical History: Procedure Laterality Date WISDOM TOOTH EXTRACTION There is no problem list on file for this patient. Social History Social History Tobacco Use Smoking status: Never Smokeless tobacco: Never Substance Use Topics Alcohol use: Not Currently Drug use: Never Family History History reviewed. No pertinent family history. Objective Physical Exam BP 108/69 Pulse 60 Temp 98.5 degrees F (36.9 degrees C) (Temporal) Resp 14 Ht 5' 3 Wt 66.2 kg (146 lb) LMP 11/16/2023 (Exact Date) SpO2 98% No BMI 25.86 kg/m Vision/Hearing Exam:No results found. Physical Exam Vitals and nursing note reviewed. Constitutional: General: She is not in acute distress. Appearance: Normal appearance. She is not ill-appearing, toxic-appearing or diaphoretic. HENT: Head: Normocephalic and atraumatic. Right Ear: Hearing and external ear normal. Left Ear: Hearing and external ear normal. Nose: Septal deviation present. No congestion or rhinorrhea. Mouth/Throat: Lips: Dobson. No lesions. Mouth: Mucous membranes are moist. Eyes: General: No scleral icterus. Right eye: No discharge. Left eye: No discharge. Extraocular Movements: Extraocular movements intact. Conjunctiva/sclera: Conjunctivae normal. Cardiovascular: Rate and Rhythm: Normal rate and regular rhythm. Pulses: Normal pulses. Heart sounds: Normal heart sounds. No murmur heard. No friction rub. No gallop. Pulmonary: Effort: Pulmonary effort is normal. No respiratory distress. Breath sounds: Normal breath sounds. No stridor. No wheezing, rhonchi or rales. Comments: NO cough heard throughout exam. No resp distress, accessory muscle use. No chest wall ttp or crepitus, painful or abnl resps. Chest: Chest wall: No tenderness. Abdominal: General: Bowel sounds are normal. There is no distension. Palpations: Abdomen is soft. Tenderness: There is abdominal tenderness. There is no right CVA tenderness, left CVA tenderness or guarding. Comments: No hsm, flank ecchymosis bilat Musculoskeletal: General: No swelling, tenderness, deformity or signs of injury. Normal range of motion. Cervical back: Normal range of motion and neck supple. No rigidity. No muscular tenderness. Right lower leg: No edema. Left lower leg: No edema. Lymphade (more content not included)...[id number] History of Present illness Narrative* Malaika Chao PA-C - 12/10/2023 2:31 PM EDT Images from the original note were not included. Patient Name: [facility] Location: [address] [address] Date Of : Date Of Visit: 1990 12/10/2023 MRN# Provider: [id number] Malaika Chao PA-C Chief Complaint Patient presents with Urinary Tract Infection Dysuria, backache, slight hematuria x 2 days. Took azo. If needs antibiotic would like diflucan sent in Assessment & Plan 1. Urinary frequency POC Urinalysis Dipstick,Auto UC No follow-ups on file. Medical Decision Making Last UTI 1-2 years ago No hx of kidney stones, + MGF, PGF with kidney stones Urinary frequency, dysuria, a little tinge of blood yesterday, did not notice today. No abd / pelvic pain, abnl vag dc or abnl bleeding. No abd PSH No hx of sti Sexually active one partner - No painful intercourse. No female hx. Not . Pt has both kidneys, no recent instrumentation or procedures. No gross hematuria, fever/chills, n/v, no urologist. Denies hx of kidney stones, stents or lithotripsy. No renal transplant. Dysuria, Urinary frequency, Flank pain R Urine dip - cannot read secondary to azo Urine culture sent Cephalexin x 10 days due to flank pain (subjective) no palp flank ttp or visible ecchymosis. Diflucan per request with hx of vaginal yeast infections Any worsening symptoms - ER! See AVS. Additional Clinical Comments Pt is nontoxic, afebrile, w/o ams and verbalized good understanding and agreement. Subjective 33 y.o. female presents with Urinary Tract Infection (Dysuria, backache, slight hematuria x 2 days.Took azo. If needs antibiotic would like diflucan sent in) HPI Review Of Systems Review of Systems Constitutional: Negative for activity change, appetite change, chills, fever and unexpected weight change. HENT: Negative for sore throat. Respiratory: Negative for cough and shortness of breath. Cardiovascular: Negative for chest pain, palpitations and leg swelling. Gastrointestinal: Negative for abdominal pain, blood in stool, constipation, diarrhea, nausea and vomiting. Genitourinary: Positive for dysuria, flank pain and frequency. Negative for decreased urine volume,difficulty urinating, dyspareunia, enuresis, genital sores, hematuria, menstrual problem, pelvic pain, urgency, vaginal bleeding, vaginal discharge and vaginal pain. Musculoskeletal: Negative for joint swelling, myalgias, neck pain and neck stiffness. Skin: Negative for rash. Psychiatric/Behavioral: Negative for confusion. Medical History History reviewed. No pertinent past medical history. Past Surgical History: Procedure Laterality Date WISDOM TOOTH EXTRACTION There is no problem list on file for this patient. Social History Social History Tobacco Use Smoking status: Never Smokeless tobacco: Never Substance Use Topics Alcohol use: Not Currently Drug use: Never Family History History reviewed. No pertinent family history. Objective Physical Exam BP 108/69 Pulse 60 Temp 98.5 F (36.9 C) (Temporal) Resp 14 Ht 5' 3 Wt 66.2 kg (146 lb) LMP 11/16/2023 (Exact Date) SpO2 98% No BMI 25.86 kg/m Vision/Hearing Exam:No results found. Physical Exam Vitals and nursing note reviewed. Constitutional: General: She is not in acute distress. Appearance: Normal appearance. She is not ill-appearing, toxic-appearing or diaphoretic. HENT: Head: Normocephalic and atraumatic. Right Ear: Hearing and external ear normal. Left Ear: Hearing and external ear normal. Nose: Septal deviation present. No congestion or rhinorrhea. Mouth/Throat: Lips: Dobson. No lesions. Mouth: Mucous membranes are moist. Eyes: General: No scleral icterus. Right eye: No discharge. Left eye: No discharge. Extraocular Movements: Extraocular movements intact. Conjunctiva/sclera: Conjunctivae normal. Cardiovascular: Rate and Rhythm: Normal rate and regular rhythm. Pulses: Normal pulses. Heart sounds: Normal heart sounds. No murmur heard. No friction rub. No gallop. Pulmonary: Effort: Pulmonary effort is normal. No respiratory distress. Breath sounds: Normal breath sounds. No stridor. No wheezing, rhonchi or rales. Comments: NO cough heard throughout exam. No resp distress, accessory muscle use. No chest wall ttpor crepitus, painful or abnl resps. Chest: Chest wall: No tenderness. Abdominal: General: Bowel sounds are normal. There is no distension. Palpations: Abdomen is soft. Tenderness: There is abdominal tenderness. There is no right CVA tenderness, left CVA tenderness orguarding. Comments: No hsm, flank ecchymosis bilat Musculoskeletal: General: No swelling, tenderness, deformity or signs of injury. Normal range of motion. Cervical back: Normal range of motion and neck supple. No rigidity. No muscular tenderness. Right lower leg: No edema. Left lower leg: No edema. Lymphadenopathy: Cervical: No cervical adenopathy. Skin: General: Skin is warm and dry. Capillary Refill: Capillary refill takes 2 to 3 seconds. Coloration: Skin is not jaundiced or pale. Findings: No bruising, erythema, lesion or rash. Neurological: General: No focal deficit present. Mental Status: She is alert and oriented to person, place, and time. Sensory: No sensory deficit. Motor: No weakness. Gait: Gait normal. Psychiatric: Mood and Affect: Mood normal. Behavior: Behavior normal. Thought Content: Thought content normal. Judgment: Judgment normal. Procedure Notes Procedures Results Recent Results (from the past 168 hour(s)) POC Urinalysis Dipstick,Auto UC Collection Time: 12/10/23 2:27 PM Result Value Ref Range POC Color, Urine [place] (A) Yellow, Light Yellow, Dark Yellow Clarity, UA Clear Clear Glucose, UA 100 (A) Normal, Negative mg/dL Bilirubin, UA Negative Negative Ketones, UA Negative Negative mg/dL Spec Grav, UA 1.005 1.005 - 1.025 Blood, UA Trace-intact (A) Negative pH, UA 5.0 5.0 - 7.0 Protein, UA 30 (A) Negative mg/dL Urobilinogen, UA 2.0 <2.0, 0.2, Normal, Negative, 1.0, 2.0, <1.0 mg/dL Nitrite, UA Positive (A) Negative Leukocyte Esterase, UA Trace (A) Negative No orders to display Orders Placed This Visit Orders Placed This Encounter Procedures POC Urinalysis Dipstick,Auto UC Medication List At End Of Visit Current Outpatient Medications Medication Sig Dispense Refill levonorgestreL (Liletta) 20.4 mcg/24 hr (8 yrs) 52 mg IUD IUD by Intrauterine route . No current facility-administered medications for this visit. There are no Patient Instructions on file for this visit. documented in this [id number] NoteHNO ID: [id number] Author: Samuel Santa OD Service: ? Author Type: LAUNDRY MANAGER Type: Progress Notes Filed: 11/26/2022 11:09 AM Note Text: ASSESSMENT/PLAN: 1. Myopia, bilateral - ICD9: 367.1, ICD10: H52.13 (primary diagnosis) 2. Regular astigmatism of both eyes - ICD9: 367.21, ICD10: H52.223 Is not interested in contact lenses at this time and rechecked her prescription prior to ordering her glasses. Recommended yearly exams. Samuel Santa OD I have confirmed and edited as necessary the relevant ophthalmic history, ROS, and the neuro exam findings as obtained by others.[facility]05-11-2023 Instructions* Patient Instructions* Samuel Santa OD - 11/26/2022 11:08 AM EDT ASSESSMENT/PLAN: 1. Myopia, bilateral - ICD9: 367.1, ICD10: H52.13 (primary diagnosis) 2. Regular astigmatism of both eyes - ICD9: 367.21, ICD10: H52.223 Is not interested in contact lenses at this time and rechecked her prescription prior to ordering her glasses. Recommended yearly exams. [facility] History of Present illness Narrative* Samuel Santa OD - 11/26/2022 11:06 AM EDT ASSESSMENT/PLAN: 1. Myopia, bilateral - ICD9: 367.1, ICD10: H52.13 (primary diagnosis) 2. Regular astigmatism of both eyes - ICD9: 367.21, ICD10: H52.223 Is not interested in contact lenses at this time and rechecked her prescription prior to ordering her glasses. Recommended yearly exams. Samuel Santa OD I have confirmed and edited as necessary the relevant ophthalmic history, ROS, and the neuro exam findings as obtained by others. [facility] NoteHNO ID: [id number] Author: Samuel Santa OD Service: ? Author Type: LAUNDRY MANAGER Type: Progress Notes Filed: 11/09/2022 11:58 AM Note Text: ASSESSMENT/PLAN: 1. Myopia, bilateral - ICD9: 367.1, ICD10: H52.13 (primary diagnosis) 2. Regular astigmatism of both eyes - ICD9: 367.21, ICD10: H52.223 Continue to wear her glasses as desired. Dispensed some daily lenses to try Return in 2 weeks for CL check Samuel T Cooperrider, OD I have confirmed and edited as necessary the relevant ophthalmic history, ROS, and the neuro exam findings as obtained by others.[facility] Instructions* Patient Instructions* Samuel Santa, OD - 11/09/2022 11:29 AM EDT ASSESSMENT/PLAN: 1. Myopia, bilateral - ICD9: 367.1, ICD10: H52.13 (primary diagnosis) 2. Regular astigmatism of both eyes - ICD9: 367.21, ICD10: H52.223 Continue to wear her glasses as desired. Dispensed some daily lenses to try Return in 2 weeks for CL check documented [facility] History of Present illness Narrative* Samuel Santa, OD - 11/09/2022 11:27 AM EDT ASSESSMENT/PLAN: 1. Myopia, bilateral - ICD9: 367.1, ICD10: H52.13 (primary diagnosis) 2. Regular astigmatism of both eyes - ICD9: 367.21, ICD10: H52.223 Continue to wear her glasses as desired. Dispensed some daily lenses to try Return in 2 weeks for CL check Samuel Santa, OD I have confirmed and edited as necessary the relevant ophthalmic history, ROS, and the neuro exam findings as obtained by others. [facility] History of Past illness Narrative* Problem Noted Date Resolved Date Positive GBS test 03/18/2016 07/02/2016 Encounter for supervision of normal in third trimester 08/16/2015 07/02/2016 Short interval between pregn ancies affecting in first trimester, antepartum 08/16/2015 07/02/2016 Overview: Last delivery was 12/06/14 Group B Streptococcus yamilex r, +RV culture, currently 11/13/2014 01/29/2015 Supervision of normal 09/06/2014 01/29/2015 Overview: Boy on Ashwini brad documented as of this encounter (statuses as of 11/09/2022) [facility] History of Past illness Narrative* Problem Noted Date Resolved Date Positive GBS test 03/18/2016 07/02/2016 Encounter for supervision of normal in third trimester 08/16/2015 07/02/2016 Short interval between pregn ancies affecting in first trimester, antepartum 08/16/2015 07/02/2016 Overview: Last delivery was 12/06/14 Group B Streptococcus yamilex r, +RV culture, currently 11/13/2014 01/29/2015 Supervision of normal 09/06/2014 01/29/2015 Overview: Boy on Ashwini brad documented as of this encounter (statuses as of 11/26/2022) [facility] Onset Date Resolution Status Recurrent candidiasis of vagina acute [facility] Work Phone: Evaluation note* Diagnosis Myopia, bilateral- Primary Myopia Regular astigmatism of both eyes Regular astigmatism [facility] Diagnosis Myopia, bilateral- Primary Myopia Regular astigmatism of both eyes Regular astigmatism [facility] Diagnosis Onset Date Resolution Status Vaginitis acute [facility] Work Phone: Evaluation note* Diagnosis Onset Date Resolution Status Vaginitis acute Yeast infection acute [facility] Work Phone: Evaluation note* Diagnosis Dysuria- Primary Urinary frequency Flank pain Abdominal pain, unspecified site [facility] Dys[facility]- Primary Abnormal urinalysis Other nonspecific finding on examination of urine Vaginal pain Unspecified symptom associated with female genital organs Vaginal itching Pruritus of genital organs [facility]ardo [facility] Note Date/Time January 15, 2025 10:4 7am [facility] [address] [place] [address], [address] [place] [address] OFFICE VISIT Date of Service: 01/15/25 MR#: [id number] Acct: [id number] Name: MARITZA REN COREY Rep #: [id number] : 1990 Provider: KEVIN Singh Age/Sex: 34/F Location: [facility] Status: Signed Intake Vital Signs 11/14/24 10:15 01/02/25 11:15 01/15/25 10:18 Height 5 ft 3 in 5 ft 3 in 5 ft 3 in Weight: 180 lb BMI 31.8 BP 100/61 Blood Pressure Location Rt brachial Position Sitting Pulse 73 Pulse Source Monitor Intake Visit Reasons: 36wk ob Director Of Institutional Sales Required: No Accompanied by: Self Is patient in pain?: No Feel stressed/tense/nervous/anxious/difficulty sleeping: not at all Allergies No Known Allergies Allergy (Verified 01/15/25 10:22) Medications ?Medication ?Instructions ?Recorded ?Confirmed ?Type multivitamin no.47-iron fum 27 cap PO 06/29/24 5 History mg-folate no.1 1 mg-dha 300 mg capsule (PNV-DHA) Last Menstrual Period: 05/07/24 Zika: Zika virus screening: Negative : No PFSH PFSH Surgical History H/O wisdom tooth extraction Family History Father Cancer, Onset Age: 54 multiple myeloma Grandfather Cancer, Onset Age: 70 Paternal- Lymphoma Mother Thyroid disorder, Onset Age: 40 hypothyroidism Grandmother Hypertension, Onset Age: 50 Maternal Social History adopted: No household members: spouse number of children: 3 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 current occupational exposures/hazards: No pets and animals: Yes pets and animals: dog(s) history of recent travel: No sexually active: Yes Smoking Status: Never smoker second hand exposure: No alcohol intake: never substance use type: does not use well-balanced diet: daily or most days caffeine: Yes Type: tea Number of servings: 2 eating out: 1-3 times/week during the past year weight has: remained stable what type of physical activity do you participate in: none frequency: does not exercise eron/adventist: Episcopalian seatbelt use: always do you feel safe at home: Yes additional social history: - Irvin- Ken History 4 Elective abortions Hx Para 3 Spontaneous abortions Hx # Term Pregnancies Ectopic pregnancies Hx # Pregnancies Multiple births # of living children 3 Past Pregnancies Del. Date Name GA/Weeks Outcome Route Bth Weight Infant Gen Labor Lgth Anesthesia Del Locatn Provider FOB Unknown 12/06/2014 Brad 41 live - full term 8lbs 7 oz Male 12 hours epidural [facility] Leanna Irvin Unknown 03/30/2016 Brennan 39 live - full term 8lbs 1oz Male 4hours epidural [facility] Cadence Irvin 10/23/20 Mattalnegar 37 live - full term 6#7oz Female ep idural [facility] GUS Irvin Delivery Date: Last Updated by: Zelda Bates no complications; + GBS tx in labor with PCN Delivery Date: Last Updated by: Zelda Bates no complication; GBS + tx with PCN in labor Delivery Date: 10/23/20 Last Updated by: Zelda Bates PROM HPI 36wk ob Details: MARITZA REN is a 34 year old who presents for routine OB visit. OB Visit ASHWIN Calculator Estimated Delivery Date Method Current WG Current Estimate 02/11/25 LMP (Certain) 36w 1d Other Estimates 02/08/25 Ultrasound #1 36w 4d Expected Delivery Route/Plan Labor Preferences- CB/BF classes: no labor support person: Irvin labor intervention preferences: [] pain management options preferred: epidural cut cord/dad catch: NO : yes PP control planned: discussed discussed possible routes of delivery and associated risks: [] special requests: [] Specific Issue/Plans Covid status: [] Flu vaccine: [] Tdap vaccine: declines Rhogam: na LARC form signed: yes Problem list reviewed and updated with the most current plan of care details and appropriate orders placed. Relevant counseling for the gestational age provided. Continue routine care and follow up unless otherwise noted in visit notes/problem list details Initial Weight: Not Recorded Date -?-?-?-?-?-?-?-?-?-?-?-?- EGA Weight BP Urine Prot -?-?-?-?-?-?-?-?-?-?-?-?- Glucose FHR FuHt Pres Dilation -?-?-?-?-?-?-?-?-?-?-?-?- Effaced St Visit Note 07/06/24 -?-?-?-?-?-?-?-?-?-?-?-?- 8w 4d 153 lb 8 oz 118/72 -?-?-?-?-?-?-?-?-?-?-?-?- 175 -?-?-?-?-?-?-?-?-?-?-?-?- KW- CRL cons wit h dates. undecided on NIPT. requesting toxoplasmosis testing due [place]. 08/07/24 -?-?-?-?-?-?-?-?-?-?-?-?- 13w 1d 157 lb 105/72 Negative -?-?-?-?-?-?-?-?-?-?-?-?- Negative 156 -?-?-?-?-?-?-?-?-?-?-?-?- KW- NOB labs today. doing we ll. declines NIPT. CRL still cons with previous dating. MFM A-US ordered 09/07/24 -?-?-?-?-?-?-?-?-?-?-?-?- 17w 4d 164 lb 109/70 Negative -?-?-?-?-?--?-?-?-?-?-?-?- Negative 150 -?-?-?-?-?-?-?-?-?-?-?-?- SM- no vb lof go od fm no regular ctx SM- no vb lof no regular ctx 10/19/24 -?-?-?-?-?-?-?-?-?-?--?-?- 23w 4d 171 lb 4 oz 97/62 Nega tive -?-?-?-?-?-?-?-?-?-?-?-?- Negative 148 -?-?-?-?-?-?-?-?-?-?-?-?- JV- no lof, vagi nal bleeding, or dec fm. asked to be seen less often, however now that we are starting to get closer to 3rd trimester recommend routine exams. plan for gct next visit. and then q 2 weeks. 11/14/24 -?-?-?-?-?-?-?-?-?-?-?-?- 27w 2d 173 lb 6 oz 96/60 Nega tive -?-?-?-?-?-?-?-?-?-?-?-?- Negative 158 -?-?-?-?-?-?-?-?-?-?-?-?- -No VB, lof. G ood FM. 28 wk labs pending. Larc done. 12/07/24 -?-?-?-?-?-?-?-?-?-?-?-?- 30w 4d 180 lb 8 oz 103/66 Nega tive -?-?-?-?-?-?-?-?-?-?-?-?- Negative 150 31 -?-?-?-?-?-?-?-?-?-?-?-?- SM- no vb lof go od fm no reuglar ctx considering tdap 12/18/24 -?-?-?-?-?-?-?-?-?-?-?-?- 32w 1d 177 lb 6 oz 98/60 Nega tive -?-?-?-?-?-?-?-?-?-?-?-?- Negative 152 33 -?-?-?-?-?-?-?-?-?-?-?-?- -No VB, LOF. G ood Fm. Denies concerns 01/02/25 -?-?-?-?-?-?-?-?-?-?-?--?- 34w 2d 181 lb 6 oz 103/62 Nega tive -?-?-?-?-?-?-?-?-?-?-?-?- Negative 140 34 -?-?-?-?-?-?-?-?-?-?-?-?- SM- no vb lof go od fm no regular ctx 01/15/25 -?-?-?-?-?-?-?-?-?-?-?-?- 36w 1d 180 lb 100/61 Negative -?-?-?-?-?-?-?-?-?-?-?-?- Negative 140 35 Cephalic 2 -?-?--?-?-?-?-?-?-?-?-?-?- 60 -2 KW- no vb. lof.ctx. good fm. GBS today. ACOG First Trimester First Trimester: Desire for , Alcohol, Tobacco Cessation, Illicit/Recreational Drug/Substance Use, Intimate Partner Violence, Barriers to care, Unstable Housing, Communication Barriers, Environmental/Work Hazards, Anticipated Course of Care, Toxoplasmosis Precations, Use of Any medications, Sexual activity, Exercise, Dental Care, Sauna/Hot tub use, Seat Belt use, Childbirth classes/Hospital facilities, Indications for Ultrasound and Screening for Aneuploidy; Discussed Second Trimester Second Trimester: Signs and Symptoms of Labor, Selecting a care provider, Reproductive Life Planning & Contreception, Care Planning, Depression/Anxiety and Intimate Partner Violence; Discussed Tobacco Cessation Third Trimester Third Trimester: Pain Management Plans, Labor support person(s), Immediate Larc, Signs and Symptoms of Preeclampsia, Infant Feeding No , Education and Family Medical Leave or Disability Forms; Discussed Circumcision preference, Discussed Tobacco Cessation, Discussed Depression and Discussed Intimate Partner Violence ROS Const Reports system reviewed and no additional complaints, except as documented Eyes Reports system reviewed and no additional complaints, except as documented ENT Reports system reviewed and no additional complaints, except as documented Card Reports system reviewed and no additional complaints, except as documented Resp Reports system reviewed and no additional complaints, except as documented GI Reports system reviewed and no additional complaints, except as documented, Denies nausea and Denies vomiting Reports system reviewed and no additional complaints, except as documented Musc Reports system reviewed and no additional complaints, except as documented Skin/Breast Reports system reviewed and no additional complaints, except as documented Neuro Yes system reviewed and no additional complaints, except as documented Psych Reports system reviewed and no additional complaints, except as documented Endo Reports system reviewed and no additional complaints, except as documented Rahul/Lymph Reports system reviewed and no additional complaints, except as documented Aller/Immun Reports system reviewed and no additional complaints, except as documented Exam Const General: cooperative, healthy appearing and no acute distress Orientation: alert, awake and oriented x3 Neck Neck: normal visual inspection and full ROM Resp Effort & Inspection: normal respiratory effort, able to speak in complete sentences and symmetric chest movement GI Inspection: normal to inspection Palpation: soft and other Other: gravid Skin General: no rashes or lesions noted Neuro General: patient alert, patient awake and patient oriented x3 Cognition: normal cognition Speech: speech normal Gait: normal gait Motor: muscle tone normal throughout Extrem General: normal to inspection and full ROM Psych Appearance: grossly normal Mental Status: mental status grossly normal Mood: congruent mood Affect: normal affect Speech and Movement: speech and movement normal Attitude: cooperative Thought Process: normal Thought Content: normal Judgment: judgment good Results POC Urinalysis 2 Dip (Clinic) Office Urine Glucose Negative Last Edit by Isamar Posey on 01/15/25 10 :38 Office Urine Protein Negative Last Edit by Isamar Posey on 01/15/25 10 :38 Coding Level of Care Code OB Routine Diagnoses 36 weeks gestation of Z3A.36 Weeks of gestation: 36 weeks Supervision of high risk in third trimester O09.93 Trimester: third trimester Cystic fibrosis carrier, antepartum O09.899; Z14.1 Assessment and Plan Assessment and Plan (1) : Status: Acute Qualifiers: Weeks of gestation: 36 weeks Qualified Code(s): Z3A.36 - 36 weeks gestation of Comment: declines carrier, genetic and ntd screen, nl anatomy (2) Supervision of high-risk : Status: Acute Qualifiers: Trimester: third trimester Qualified Code(s): O09.93 - Supervision of high risk , unspecified, third trimester Comment: PRR, , ASHWIN 02/11/25, Brennan Benavides, Irvin (3) Cystic fibrosis carrier, antepartum: Status: Acute Comment: Pt also carrier but of a different CF gene than pt Orders: Orders Culture, Group B Streptococcus Today Z3A.34 - 34 weeks gestation of POC Urinalysis 2 Dip (Clinic) Today Plan Details Additional Comments: ACOG trimester education reviewed and updated. see problem list details for updated plan management information and see below for orders placed at this visit. GA appropriate handout given. 01/15/25 1047 <Electronically signed by Ricardo gaona CNM> Date _ Ricardo Singh CNM Cosigner Signature: Date (if applicable) CC: ~ [facility] Work Phone: Progress note Author Ricardo Singh [facility] Note Date/Time January 25, 2025 1:48 pm [facility] [address] [place] [address], [address] [place] [address] OFFICE VISIT Date of Service: 01/25/25 MR#: [id number] Acct: [id number] Name: MARITZA REN COREY Rep #: [id number] : 1990 Provider: KEVIN Singh Age/Sex: 34/F Location: [facility] [place] [place] Status: Signed Intake Vital Signs 01/02/25 11:15 01/15/25 10:18 01/25/25 13:34 Height 5 ft 3 in 5 ft 3 in 5 ft 3 in Weight: 183 lb 4 oz BMI 32.4 BP 109/69 Intake Visit Reasons: 37wk ob Chief Complaint: 37wk ob Director Of Institutional Sales Required: No Is patient in pain?: No Allergies No Known Allergies Allergy (Verified 01/25/25 13:32) Medications ?Medication ?Instructions ?Recorded ?Confirmed ?Type multivitamin no.47-iron fum 27 cap PO 06/29/24 5 History mg-folate no.1 1 mg-dha 300 mg capsule (PNV-DHA) Last Menstrual Period: 05/07/24 : No PFSH PFSH Surgical History H/O wisdom tooth extraction Family History Father Cancer, Onset Age: 54 multiple myeloma Grandfather Cancer, Onset Age: 70 Paternal- Lymphoma Mother Thyroid disorder, Onset Age: 40 hypothyroidism Grandmother Hypertension, Onset Age: 50 Maternal Social History adopted: No household members: spouse number of children: 3 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 current occupational exposures/hazards: No pets and animals: Yes pets and animals: dog(s) history of recent travel: No sexually active: Yes Smoking Status: Never smoker second hand exposure: No alcohol intake: never substance use type: does not use well-balanced diet: daily or most days caffeine: Yes Type: tea Number of servings: 2 eating out: 1-3 times/week during the past year weight has: remained stable what type of physical activity do you participate in: none frequency: does not exercise eron/adventist: Episcopalian seatbelt use: always do you feel safe at home: Yes additional social history: - Irvin- Ken History 4 Elective abortions Hx Para 3 Spontaneous abortions Hx # Term Pregnancies Ectopic pregnancies Hx # Pregnancies Multiple births # of living children 3 Past Pregnancies Del. Date Name GA/Weeks Outcome Route Bth Weight Gen Labor Lgth Anesthesia Del Locatn Provider FOB Unknown 12/06/2014 Brad 41 live - full term 8lbs 7 oz Male 12 hours epidural [facility] Ram Irvin Unknown 03/30/2016 Brennan 39 live - full term 8lbs 1oz Male 4hours epidural [facility] Marcanthony Irvin 10/23/20 Mattalyn 37 live - full term 6#7oz Female ep idural [facility] GUS Irvin Delivery Date: Last Updated by: Zelda Bates no complications; + GBS tx in labor with PCN Delivery Date: Last Updated by: Zelda Bates no complication; GBS + tx with PCN in labor Delivery Date: 10/23/20 Last Updated by: Zelda Bates PROM HPI 37wk ob Details: MARITZA REN is a 34 year old who presents for routine OB visit. OB Visit ASHWIN Calculator Estimated Delivery Date Method Current WG Current Estimate 02/11/25 LMP (Certain) 37w 4d Other Estimates 02/08/25 Ultrasound #1 38w 0d Expected Delivery Route/Plan Labor Preferences- CB/BF classes: no labor support person: Irvin labor intervention preferences: [] pain management options preferred: epidural cut cord/dad catch: NO : yes PP control planned: discussed discussed possible routes of delivery and associated risks: [] special requests: [] Specific Issue/Plans Covid status: [] Flu vaccine: [] Tdap vaccine: declines Rhogam: na LARC form signed: yes Problem list reviewed and updated with the most current plan of care details and appropriate orders placed. Relevant counseling for the gestational age provided. Continue routine care and follow up unless otherwise noted in visit notes/problem list details Initial Weight: Not Recorded Date -?-?-?-?-?-?-?-?-?-?-?-?- EGA Weight BP Urine Prot -?-?--?-?-?-?-?-?-?-?-?-?- Glucose FHR FuHt Pres Dilation -?-?-?-?-?-?-?-?--?-?-?-?- Effaced St Visit Note 07/06/24 -?-?-?-?-?-?-?-?-?-?-?-?- 8w 4d 153 lb 8 oz 118/72 -?-?-?-?-?-?-?-?-?-?-?-?- 175 -?-?-?-?-?-?-?-?-?-?-?-?- KW- CRL cons wit h dates. undecided on NIPT. requesting toxoplasmosis testing due to [place]. 08/07/24 -?-?-?-?-?-?-?-?-?-?-?-?- 13w 1d 157 lb 105/72 Negative -?-?-?-?-?-?-?-?-?-?-?-?- Negative 156 -?-?-?-?-?-?-?-?-?-?-?-?- KW- NOB labs today. doing we ll. declines NIPT. CRL still cons with previous dating. MFM A-US ordered 09/07/24 -?-?-?-?-?-?-?-?-?-?-?-?- 17w 4d 164 lb 109/70 Negative -?-?-?-?-?-?-?-?-?-?-?-?- Negative 150 -?-?-?-?-?-?-?-?-?-?-?-?- SM- no vb lof go od fm no regular ctx SM- no vb lof no regular ctx 10/19/24 -?-?-?-?-?-?-?-?-?-?-?-?- 23w 4d 171 lb 4 oz 97/62 Nega tive -?-?-?-?-?-?-?-?-?-?-?-?- Negative 148 -?-?-?-?-?-?-?-?-?-?-?-?- JV- no lof, vagi nal bleeding, or dec fm. asked to be seen less often, however now that we are starting to get closer to 3rd trimester recommend routine exams. plan for gct next visit. and then q 2 weeks. 11/14/24 -?-?-?-?-?-?-?-?-?-?-?-?- 27w 2d 173 lb 6 oz 96/60 Nega tive -?-?-?-?-?-?-?-?-?-?-?-?- Negative 158 -?-?-?-?-?-?-?-?-?-?-?-?- -No VB, lof. G ood FM. 28 wk labs pending. Larc done. 12/07/24 -?-?-?-?-?-?-?-?-?-?-?-?- 30w 4d 180 lb 8 oz 103/66 Nega tive -?-?-?-?-?-?-?-?-?-?-?-?- Negative 150 31 -?-?-?-?-?-?-?-?-?-?-?-?- SM- no vb lof go od fm no reuglar ctx considering tdap 12/18/24 -?-?-?-?-?-?-?-?-?-?-?-?- 32w 1d 177 lb 6 oz 98/60 Nega tive -?-?-?-?-?-?-?-?-?-?-?-?- Negative 152 33 -?-?-?-?-?-?-?-?-?-?-?-?- MH-No VB, LOF. G ood Fm. Denies concerns 01/02/25 -?-?-?-?-?-?-?-?-?-?-?-?- 34w 2d 181 lb 6 oz 103/62 Nega tive -?-?-?-?-?-?-?-?-?-?-?-?- Negative 140 34 -?-?-?-?-?-?-?-?-?-?-?-?- SM- no vb lof go od fm no regular ctx 01/15/25 -?-?-?-?-?-?-?-?-?-?-?-?- 36w 1d 180 lb 100/61 Negative -?-?-?-?-?-?-?-?-?-?-?-?- Negative 140 35 Cephalic 2 -?-?-?-?-?-?-?-?-?-?-?-?- 60 -2 KW- no vb. lof.ctx. good fm. GBS today. 01/25/25 -?-?-?-?-?-?-?-?-?-?-?-?- 37w 4d 183 lb 4 oz 109/69 Nega tive -?-?-?-?-?-?-?-?-?-?-?-?- Negative 130 37 Cephalic 2 .5 -?-?-?-?-?-?-?-?-?-?-?-?- 60 -2 KW- no vb, lof, ctx. good fm GBS neg. ACOG First Trimester First Trimester: Desire for , Alcohol, Tobacco Cessation, Illicit/Recreational Drug/Substance Use, Intimate Partner Violence, Barriers to care, Unstable Housing, Communication Barriers, Environmental/Work Hazards, Anticipated Course of Care, Toxoplasmosis Precations, Use of Any medications, Sexual activity, Exercise, Dental Care, Sauna/Hot tub use, Seat Belt use, Childbirth classes/Hospital facilities, Indications for Ultrasound and Screening for Aneuploidy; Discussed Second Trimester Second Trimester: Signs and Symptoms of Labor, Selecting a care provider, Reproductive Life Planning & Contreception, Care Planning, Depression/Anxiety and Intimate Partner Violence; Discussed Tobacco Cessation Third Trimester Third Trimester: Pain Management Plans, Labor support person(s), Immediate Larc, Signs and Symptoms of Preeclampsia, Feeding No , Education and Family Medical Leave or Disability Forms; Discussed Circumcision preference, Discussed Tobacco Cessation, Discussed Depression and Discussed Intimate Partner Violence ROS Const Reports system reviewed and no additional complaints, except as documented Eyes Reports system reviewed and no additional complaints, except as documented ENT Reports system reviewed and no additional complaints, except as documented Card Reports system reviewed and no additional complaints, except as documented Resp Reports system reviewed and no additional complaints, except as documented GI Reports system reviewed and no additional complaints, except as documented, Denies nausea and Denies vomiting Reports system reviewed and no additional complaints, except as documented Musc Reports system reviewed and no additional complaints, except as documented Skin/Breast Reports system reviewed and no additional complaints, except as documented Neuro Yes system reviewed and no additional complaints, except as documented Psych Reports system reviewed and no additional complaints, except as documented Endo Reports system reviewed and no additional complaints, except as documented Rahul/Lymph Reports system reviewed and no additional complaints, except as documented Aller/Immun Reports system reviewed and no additional complaints, except as documented Exam Const General: cooperative, healthy appearing and no acute distress Orientation: alert, awake and oriented x3 Neck Neck: normal visual inspection and full ROM Resp Effort & Inspection: normal respiratory effort, able to speak in complete sentences and symmetric chest movement GI Inspection: normal to inspection Palpation: soft and other Other: gravid Skin General: no rashes or lesions noted Neuro General: patient alert, patient awake and patient oriented x3 Cognition: normal cognition Speech: speech normal Gait: normal gait Motor: muscle tone normal throughout Extrem General: normal to inspection and full ROM Psych Appearance: grossly normal Mental Status: mental status grossly normal Mood: congruent mood Affect: normal affect Speech and Movement: speech and movement normal Attitude: cooperative Thought Process: normal Thought Content: normal Judgment: judgment good Results POC Urinalysis 2 Dip (Clinic) Office Urine Glucose Negative Last Edit by Charlette Acharya on 01/25/25 13:40 Office Urine Protein Negative Last Edit by Charlette Acharya on 01/25/25 13:40 Coding Level of Care Code OB Routine Diagnoses Supervision of high risk in third trimester O09.93 Trimester: third trimester Cystic fibrosis carrier, antepartum O09.899; Z14.1 37 weeks gestation of Z3A.37 Weeks of gestation: 37 weeks Assessment and Plan Assessment and Plan (1) Supervision of high-risk : Status: Acute Qualifiers: Trimester: third trimester Qualified Code(s): O09.93 - Supervision of high risk , unspecified, third trimester Comment: PRR, , ASHWIN 02/11/25, Brennan Benavides, Irvin (2) Cystic fibrosis carrier, antepartum: Status: Acute Comment: Pt also carrier but of a different CF gene than pt (3) : Status: Acute Qualifiers: Weeks of gestation: 37 weeks Qualified Code(s): Z3A.37 - 37 weeks gestation of Comment: GBS neg, declines carrier, genetic and ntd screen, nl anatomy Orders: Orders POC Urinalysis 2 Dip (Clinic) Today Plan Details Additional Comments: ACOG trimester education reviewed and updated. see problem list details for updated plan management information and see below for orders placed at this visit. GA appropriate handout given. 01/25/25 4669 <Electronically signed by Ricardo gaona CNM> Date _ Ricardo Singh CNM Cosigner Signature: Date (if applicable) CC: ~ [facility] Work Phone: Reason for referral (narrative)No reason for referral information availableWMer[facility] Work Phone: Summary Purpose Family History Relationship Condition Age at Onset Recorded Date/T kadi father Malignant neoplasm 54 grandfather Malignant neoplasm 70 mother Disorder of thyroid 40 grandmother Hypertension 50 Advance Directives Advance Directive Response Recorded Date/ Time Living Will No January 14, 2022 10:43am Power of Medical Practice Administrator No January 14 10:43am Advance Directive Response Recorded Date/ Time Living Will No January 14, 2022 9:43am Power of Medical Practice Administrator No January 14 9:43am Chief Complaint and Reason for Visit Chief Complaint yeast infection Reason for Visit Recurrent candidiasi s of vagina Chief Complaint yeast/BV? Reason for Visit Vaginitis Chief Complaint YEAST INFECTION / BV ? B37.3, CANDIDIASIS OF VULVA AND VAGINA Reason for Visit Vaginitis Yeast infection Chief Complaint Admit Date 12 wk OB August 07, 2024 9 :46am 16 WK OB September 07, 2024 9:34am 23WK OB (6wk since last per SM) October 9:25am EORDER-GLUCOSE ONLY November 14, 2024 9:5 8am 27WK OB/GLUCOSE November 14, 2024 10: 07am Reason for Visit Admit Date Cystic fibrosis carrier, antepartum Florentino 2024 9:46am August 07, 2024 9 :46am Supervision of high-risk Julua ry 2024 9:46am Encounter for scre ening for other genetic defects August 07, 2024 9:46am Exposure to Toxoplasma species July 202024 9:46am Recurrent candidiasis of vagina August 07, 2024 9:46am Cystic fibrosis carrier, antepartum 2024 9:34am September 07, 2024 9:34am Supervision of high-risk u 2024 9:34am Cystic fibrosis carrier, antepartum Apri l 2024 9:25am October 19, 2024 9:25 am Supervision of high-risk October 19, 2024 9:25am Cystic fibrosis carrier, antepartum Apri l 2024 10:07am November 14, 2024 10: 07am Supervision of high-risk November 14, 2024 10:07am Chief Complaint Admit Date 16 WK OB September 07, 2024 9:34am 23WK OB (6wk since last per SM) October 9:25am EORDER-GLUCOSE ONLY November 14, 2024 9:5 8am 27WK OB/GLUCOSE November 14, 2024 10: 07am 30 wk ob December 07, 2024 9:05a m 32 wk ob December 18, 2024 10:20 am Reason for Visit Admit Date Cystic fibrosis carrier, antepartum 2024 9:34am September 07, 2024 9:34am Supervision of high-risk 2024 9:34am Cystic fibrosis carrier, antepartum Apri l 2024 9:25am October 19, 2024 9:25 am Supervision of high-risk October 19, 2024 9:25am Cystic fibrosis carrier, antepartum Apri l 2024 10:07am November 14, 2024 10: 07am Supervision of high-risk November 14, 2024 10:07am Cystic fibrosis carrier, antepartum December 07, 2024 9:05am December 07, 2024 9:05a m Supervision of high-risk November 172024 9:05am Cystic fibrosis carrier, antepartum December 18, 2024 10:20am December 18, 2024 10:20 am Supervision of high-risk December 18, 2024 10:20am Chief Complaint Admit Date 16 WK OB September 07, 2024 9:34am 23WK OB (6wk since last per SM) October 9:25am EORDER-GLUCOSE ONLY November 14, 2024 9:5 8am 27WK OB/GLUCOSE November 14, 2024 10: 07am 30 wk ob December 07, 2024 9:05a m 32 wk ob December 18, 2024 10:20 am 34wk ob January 02, 2025 11:2 0am Reason for Visit Admit Date Cystic fibrosis carrier, antepartum Febr uary 2024 9:34am September 07, 2024 9:34am Supervision of high-risk Febru [email or web address] 9:34am Cystic fibrosis carrier, antepartum Apri l 2024 9:25am October 19, 2024 9:25 am Supervision of high-risk October 19, 2024 9:25am Cystic fibrosis carrier, antepartum Apri l 2024 10:07am November 14, 2024 10: 07am Supervision of high-risk November 14, 2024 10:07am Cystic fibrosis carrier, antepartum December 07, 2024 9:05am December 07, 2024 9:05a m Supervision of high-risk November 172024 9:05am Cystic fibrosis carrier, antepartum December 18, 2024 10:20am December 18, 2024 10:20 am Supervision of high-risk December 18, 2024 10:20am Cystic fibrosis carrier, antepartum January 02, 2025 11:20am January 02, 2025 11:2 0am Supervision of high-risk January 02, 2025 11:20am Chief Complaint Admit Date 23WK OB (6wk since last per SM) October 9:25am EORDER-GLUCOSE ONLY November 14, 2024 9:5 8am 27WK OB/GLUCOSE November 14, 2024 10: 07am 30 wk ob December 07, 2024 9:05a m 32 wk ob December 18, 2024 10:20 am 34wk ob January 02, 2025 11:2 0am 36wk ob January 15, 2025 10:1 6am Reason for Visit Admit Date Cystic fibrosis carrier, antepartum Apri l 2024 9:25am October 19, 2024 9:25 am Supervision of high-risk October 19, 2024 9:25am Cystic fibrosis carrier, antepartum Apri l 2024 10:07am November 14, 2024 10: 07am Supervision of high-risk November 14, 2024 10:07am Cystic fibrosis carrier, antepartum December 07, 2024 9:05am December 07, 2024 9:05a m Supervision of high-risk November 172024 9:05am Cystic fibrosis carrier, antepartum December 18, 2024 10:20am December 18, 2024 10:20 am Supervision of high-risk December 18, 2024 10:20am Cystic fibrosis carrier, antepartum January 02, 2025 11:20am January 02, 2025 11:2 0am Supervision of high-risk January 02, 2025 11:20am Cystic fibrosis carrier, antepartum January 15, 2025 10:16am January 15, 2025 10:1 6am Supervision of high-risk January 15, 2025 10:16am Chief Complaint Admit Date 23WK OB (6wk since last per SM) October 9:25am EORDER-GLUCOSE ONLY November 14, 2024 9:5 8am 27WK OB/GLUCOSE November 14, 2024 10: 07am 30 wk ob December 07, 2024 9:05a m 32 wk ob December 18, 2024 10:20 am 34wk ob January 02, 2025 11:2 0am 36wk ob January 15, 2025 10:1 6am 37wk ob January 25, 2025 1:29 pm Reason for Visit Admit Date Cystic fibrosis carrier, antepartum Apri l 2024 9:25am October 19, 2024 9:25 am Supervision of high-risk October 19, 2024 9:25am Cystic fibrosis carrier, antepartum Apri l 2024 10:07am November 14, 2024 10: 07am Supervision of high-risk November 14, 2024 10:07am Cystic fibrosis carrier, antepartum December 07, 2024 9:05am December 07, 2024 9:05a m Supervision of high-risk November 172024 9:05am Cystic fibrosis carrier, antepartum December 18, 2024 10:20am December 18, 2024 10:20 am Supervision of high-risk December 18, 2024 10:20am Cystic fibrosis carrier, antepartum January 02, 2025 11:20am January 02, 2025 11:2 0am Supervision of high-risk January 02, 2025 11:20am Cystic fibrosis carrier, antepartum January 15, 2025 10:16am January 15, 2025 10:1 6am Supervision of high-risk January 15, 2025 10:16am Cystic fibrosis carrier, antepartum January 25, 2025 1:29pm January 25, 2025 1:29 pm Supervision of high-risk January 25, 2025 1:29pm Chief Complaint Admit Date 23WK OB (6wk since last per SM) October 9:25am EORDER-GLUCOSE ONLY November 14, 2024 9:5 8am 27WK OB/GLUCOSE November 14, 2024 10: 07am 30 wk ob December 07, 2024 9:05a m 32 wk ob December 18, 2024 10:20 am 34wk ob January 02, 2025 11:2 0am 36wk ob January 15, 2025 10:1 6am 37wk ob January 25, 2025 1:29 pm 38wk ob February 02, 2025 11:4 5am Reason for Visit Admit Date Cystic fibrosis carrier, antepartum Apri l 2024 9:25am October 19, 2024 9:25 am Supervision of high-risk October 19, 2024 9:25am Cystic fibrosis carrier, antepartum Apri l 2024 10:07am November 14, 2024 10: 07am Supervision of high-risk November 14, 2024 10:07am Cystic fibrosis carrier, antepartum December 07, 2024 9:05am December 07, 2024 9:05a m Supervision of high-risk November 172024 9:05am Cystic fibrosis carrier, antepartum December 18, 2024 10:20am December 18, 2024 10:20 am Supervision of high-risk December 18, 2024 10:20am Cystic fibrosis carrier, antepartum January 02, 2025 11:20am January 02, 2025 11:2 0am Supervision of high-risk January 02, 2025 11:20am Cystic fibrosis carrier, antepartum January 15, 2025 10:16am January 15, 2025 10:1 6am Supervision of high-risk January 15, 2025 10:16am Cystic fibrosis carrier, antepartum January 25, 2025 1:29pm January 25, 2025 1:29 pm Supervision of high-risk January 25, 2025 1:29pm Cystic fibrosis carrier, antepartum February 02, 2025 11:45am February 02, 2025 11:4 5am Supervision of high-risk February 02, 2025 11:45am Chief Complaint Admit Date 23WK OB (6wk since last per SM) October 9:25am EORDER-GLUCOSE ONLY November 14, 2024 9:5 8am 27WK OB/GLUCOSE November 14, 2024 10: 07am 30 wk ob December 07, 2024 9:05a m 32 wk ob December 18, 2024 10:20 am 34wk ob January 02, 2025 11:2 0am 36wk ob January 15, 2025 10:1 6am 37wk ob January 25, 2025 1:29 pm 38wk ob February 02, 2025 11:4 5am 39wk ob *~due date 02/11February 09, 2025 9:38am Reason for Visit Admit Date Cystic fibrosis carrier, antepartum Apri l 2024 9:25am October 19, 2024 9:25 am Supervision of high-risk October 19, 2024 9:25am Cystic fibrosis carrier, antepartum Apri l 2024 10:07am November 14, 2024 10: 07am Supervision of high-risk November 14, 2024 10:07am Cystic fibrosis carrier, antepartum December 07, 2024 9:05am December 07, 2024 9:05a m Supervision of high-risk November 172024 9:05am Cystic fibrosis carrier, antepartum December 18, 2024 10:20am December 18, 2024 10:20 am Supervision of high-risk December 18, 2024 10:20am Cystic fibrosis carrier, antepartum January 02, 2025 11:20am January 02, 2025 11:2 0am Supervision of high-risk January 02, 2025 11:20am Cystic fibrosis carrier, antepartum January 15, 2025 10:16am January 15, 2025 10:1 6am Supervision of high-risk January 15, 2025 10:16am Cystic fibrosis carrier, antepartum January 25, 2025 1:29pm January 25, 2025 1:29 pm Supervision of high-risk January 25, 2025 1:29pm Cystic fibrosis carrier, antepartum February 02, 2025 11:45am February 02, 2025 11:4 5am Supervision of high-risk February 02, 2025 11:45am Cystic fibrosis carrier, antepartum February 09, 2025 9:38am February 09, 2025 9:38 am Supervision of high-risk February 09, 2025 9:38am Chief Complaint Admit Date 23WK OB (6wk since last per SM) October 9:25am EORDER-GLUCOSE ONLY November 14, 2024 9:5 8am 27WK OB/GLUCOSE November 14, 2024 10: 07am 30 wk ob December 07, 2024 9:05a m 32 wk ob December 18, 2024 10:20 am 34wk ob January 02, 2025 11:2 0am 36wk ob January 15, 2025 10:1 6am 37wk ob January 25, 2025 1:29 pm 38wk ob February 02, 2025 11:4 5am 39wk ob *~due date 02/11February 09, 2025 9:38am 40wk ob *~due date 02/11February 12, 2025 3:47pm Reason for Visit Admit Date Cystic fibrosis carrier, antepartum Apri l 2024 9:25am October 19, 2024 9:25 am Supervision of high-risk October 19, 2024 9:25am Cystic fibrosis carrier, antepartum Apri l 2024 10:07am November 14, 2024 10: 07am Supervision of high-risk November 14, 2024 10:07am Cystic fibrosis carrier, antepartum December 07, 2024 9:05am December 07, 2024 9:05a m Supervision of high-risk November 172024 9:05am Cystic fibrosis carrier, antepartum December 18, 2024 10:20am December 18, 2024 10:20 am Supervision of high-risk December 18, 2024 10:20am Cystic fibrosis carrier, antepartum January 02, 2025 11:20am January 02, 2025 11:2 0am Supervision of high-risk January 02, 2025 11:20am Cystic fibrosis carrier, antepartum January 15, 2025 10:16am January 15, 2025 10:1 6am Supervision of high-risk January 15, 2025 10:16am Cystic fibrosis carrier, antepartum January 25, 2025 1:29pm January 25, 2025 1:29 pm Supervision of high-risk January 25, 2025 1:29pm Cystic fibrosis carrier, antepartum February 02, 2025 11:45am February 02, 2025 11:4 5am Supervision of high-risk February 02, 2025 11:45am Cystic fibrosis carrier, antepartum February 09, 2025 9:38am February 09, 2025 9:38 am Supervision of high-risk February 09, 2025 9:38am Cystic fibrosis carrier, antepartum February 12, 2025 3:47pm February 12, 2025 3:47 pm Supervision of high-risk February 12, 2025 3:47pm Medications Administered Section Inactive Administered Medications - up to 3 most recent administrations Medication Order MAR Action Action Date Dose Rate Site tropicamide 0.5 % 1 Drop (MYDRIACYL) 1 Drop, BOTH EYES, ONCE, 1 dose, On 11/09/22 at 1200, FOR THE EYE Given 11/09/2022 12:00 PM EDT 1 Drop Additional Source Comments INFORMATION SOURCE (unrecogn ized section and content) DATE CREATED AUTHOR 2018 [facility] DATE CREATED AUTHOR AUTHOR'S ORGANIZ ATION 04/21/2018 [facility] DATE CREATED AUTHOR AUTHOR'S ORGANIZ ATION 11/27/2022 [facility] DATE CREATED AUTHOR AUTHOR'S ORGANIZ ATION 02/21/2024 [facility] DATE CREATED AUTHOR AUTHOR'S ORGANIZ ATION 10/01/2024 [facility] DATE CREATED AUTHOR AUTHOR'S ORGANIZ ATION 02/10/2025 [facility] Goals (unrecognized section and content) Goals may be documented in a n alternate sectionGoals may be documented in an alternate sectionGoals may be documented in an alternate sectionGoals may be documented in an alternate sectionGoals may be documented in an alternate sectionGoals may be documented in an alternate sectionGoals may be documented in an alternate sectionGoals may be documented in an alternate sectionGoals may be documented in an alternate sectionGoals may be documented in an alternate sectionGoals may be documented in an alternate sectionGoals may be documented in an alternate section Source Comments (unrecognize d section and content) In the event this informatio n is protected by the Federal Confidentiality of Alcohol and Drug Abuse Patient Records regulations: The Federal rules restrict any use of the information to criminally investigate or prosecute any alcohol or drug abuse patient.[facility] the event this information is protected by the Federal Confidentiality of Alcohol and Drug Abuse Patient Records regulations: The Federal rules restrict any use of the information to criminally investigate or prosecute any alcohol or drug abuse patient.[facility] Reason for Visit (unrecogniz ed section and content) Reason Comments Yearly Exam Contact lens evaluation Reason Comments Blurry Vision Both Eyes Reason Comments Urinary Tract Infection Dysuria, backach e, slight hematuria x 2 days. Took azo. If needs antibiotic would like diflucan sent in Reason Comments Vaginal Itching Vaginal itching, and burning, pain x 5 days, no concern for std Care Teams (unrecognized sec tion and content) Team Status: Active Member Role Status Dates No Primary Care Physician Family Provider Active No Primary Care Physician Primary Care Provider Active Team Status: Inactive Member Role Status Dates No Primary Care Physician Primary Care Provider, Refer ring Provider Active Ricardo Singh CNM Attending Provider Active Team Status: Inactive Member Role Status Dates No Primary Care Physician Primary Care Provider Active Ricardo Singh CNM Attending Provider, Referring Pro vider Active Team Status: Inactive Member Role Status Dates No Primary Care Physician Primary Care Provider, Refer ring Provider Active Yazmin Esposito CNM Attending Provider Active Team Status: Inactive Member Role Status Dates No Primary Care Physician Primary Care Provider Active Yazmin Esposito CNM Attending Provider, Referring Pr ovider Active Hair Preparer Relationship Specialty Start Date End Date No, Physician [facility] PCP - General 12/10/23 Hair Preparer Relationship Specialty Start Date End Date No, Physician [facility] PCP - General 12/10/23 Team Status: Active Member Role Status Dates No Primary Care Physician Primary Care Provider Active Team Status: Inactive Member Role Status Dates No Primary Care Physician Primary Care Provider Active Start: August 07, 2024 End: August 07, 2024 No Primary Care Physician Referring Provider Active Start: August 07, 2024 End: August 07, 2024 Ricardo Singh CNM Attending Provider Active S tart: August 07, 2024 End: August 07, 2024 Team Status: Inactive Member Role Status Dates No Primary Care Physician Primary Care Provider Active Start: August 07, 2024 End: August 07, 2024 Ricardo Singh CNM Attending Provider Active S tart: August 07, 2024 End: August 07, 2024 Ricardo Singh CNM Referring Provider Active S tart: August 07, 2024 End: August 07, 2024 Team Status: Inactive Member Role Status Dates No Primary Care Physician Primary Care Provider Active Start: September 07, 2024 End: September 07, 2024 No Primary Care Physician Referring Provider Active Start: September 07, 2024 End: September 07, 2024 Dr. Lily Vila MD Attending Provider Active Start: September 07, 2024 End: September 07, 2024 Team Status: Inactive Member Role Status Dates No Primary Care Physician Primary Care Provider Active Start: October 19, 2024 End: October 19, 2024 No Primary Care Physician Referring Provider Active Start: October 19, 2024 End: October 19, 2024 Dr. Charlene Caro DO Attending Provider Activ e Start: October 19, 2024 End: October 19, 2024 Team Status: Inactive Member Role Status Dates No Primary Care Physician Primary Care Provider Active Start: November 14, 2024 End: November 14, 2024 Dr. Charlene Caro DO Attending Provider Activ e Start: November 14, 2024 End: November 14, 2024 Dr. Charlene Caro DO Referring Provider Activ e Start: November 14, 2024 End: November 14, 2024 Team Status: Inactive Member Role Status Dates No Primary Care Physician Primary Care Provider Active Start: November 14, 2024 End: November 14, 2024 No Primary Care Physician Referring Provider Active Start: November 14, 2024 End: November 14, 2024 Neyda Corley NP, [employer]ANT-C Attending Provider Active Start: November 14, 2024 End: November 14, 2024 Team Status: Inactive Member Role Status Dates No Primary Care Physician Primary Care Provider Active Start: December 07, 2024 End: December 07, 2024 No Primary Care Physician Referring Provider Active Start: December 07, 2024 End: December 07, 2024 Dr. Lily Vila MD Attending Provider Active Start: December 07, 2024 End: December 07, 2024 Team Status: Inactive Member Role Status Dates No Primary Care Physician Primary Care Provider Active Start: December 18, 2024 End: December 18, 2024 No Primary Care Physician Referring Provider Active Start: December 18, 2024 End: December 18, 2024 Neyda Corley NP [employer]SULTANT-C Attending Provider Active Start: December 18, 2024 End: December 18, 2024 Team Status: Inactive Member Role Status Dates No Primary Care Physician Primary Care Provider Active Start: January 02, 2025 End: January 02, 2025 No Primary Care Physician Referring Provider Active Start: January 02, 2025 End: January 02, 2025 Dr. Lily Vila MD Attending Provider Active Start: January 02, 2025 End: January 02, 2025 Team Status: Active Member Role/Relationship Status Dates No Primary Care Physician Primary Care Provider Active Team Status: Inactive Member Role/Relationship Status Dates No Primary Care Physician Primary Care Provider Active Start: October 19, 2024 End: October 19, 2024 No Primary Care Physician Referring Provider Active Start: October 19, 2024 End: October 19, 2024 Dr. Charlene Caro DO Attending Provider Activ e Start: October 19, 2024 End: October 19, 2024 Team Status: Inactive Member Role/Relationship Status Dates No Primary Care Physician Primary Care Provider Active Start: November 14, 2024 End: November 14, 2024 Dr. Charlene Caro DO Attending Provider Activ e Start: November 14, 2024 End: November 14, 2024 Dr. Charlene Caro DO Referring Provider Activ e Start: November 14, 2024 End: November 14, 2024 Team Status: Inactive Member Role/Relationship Status Dates No Primary Care Physician Primary Care Provider Active Start: November 14, 2024 End: November 14, 2024 No Primary Care Physician Referring Provider Active Start: November 14, 2024 End: November 14, 2024 Neyda Corley NP [employer] SAL[employer] CONSULTANT-C Attending Provider Active Start: November 14, 2024 End: November 14, 2024 Team Status: Inactive Member Role/Relationship Status Dates No Primary Care Physician Primary Care Provider Active Start: December 07, 2024 End: December 07, 2024 No Primary Care Physician Referring Provider Active Start: December 07, 2024 End: December 07, 2024 Dr. Lily Vila MD Attending Provider Active Start: December 07, 2024 End: December 07, 2024 Team Status: Inactive Member Role/Relationship Status Dates No Primary Care Physician Primary Care Provider Active Start: December 18, 2024 End: December 18, 2024 No Primary Care Physician Referring Provider Active Start: December 18, 2024 End: December 18, 2024 Neyda Corley NP, [employer] SAL[employer] CONSULTANT-C Attending Provider Active Start: December 18, 2024 End: December 18, 2024 Team Status: Inactive Member Role/Relationship Status Dates No Primary Care Physician Primary Care Provider Active Start: January 02, 2025 End: January 02, 2025 No Primary Care Physician Referring Provider Active Start: January 02, 2025 End: January 02, 2025 Dr. Lily Vila MD Attending Provider Active Start: January 02, 2025 End: January 02, 2025 Team Status: Inactive Member Role/Relationship Status Dates No Primary Care Physician Primary Care Provider Active Start: January 15, 2025 End: January 15, 2025 No Primary Care Physician Referring Provider Active Start: January 15, 2025 End: January 15, 2025 Ricardo Singh CNM Attending Provider Active S tart: January 15, 2025 End: January 15, 2025 Team Status: Inactive Member Role/Relationship Status Dates No Primary Care Physician Primary Care Provider Active Start: January 15, 2025 End: January 15, 2025 Ricardo Singh CNM Attending Provider Active S tart: January 15, 2025 End: January 15, 2025 Ricardo Singh CNM Referring Provider Active S tart: January 15, 2025 End: January 15, 2025 Team Status: Inactive Member Role/Relationship Status Dates No Primary Care Physician Primary Care Provider Active Start: January 25, 2025 End: January 25, 2025 No Primary Care Physician Referring Provider Active Start: January 25, 2025 End: January 25, 2025 Ricardo Singh CNM Attending Provider Active S tart: January 25, 2025 End: January 25, 2025 Team Status: Inactive Member Role/Relationship Status Dates No Primary Care Physician Primary Care Provider Active Start: February 02, 2025 End: February 02, 2025 No Primary Care Physician Referring Provider Active Start: February 02, 2025 End: February 02, 2025 Yazmin Esposito CNM Attending Provider Active Start: February 02, 2025 End: February 02, 2025 Team Status: Inactive Member Role/Relationship Status Dates No Primary Care Physician Primary Care Provider Active Start: February 09, 2025 End: February 09, 2025 No Primary Care Physician Referring Provider Active Start: February 09, 2025 End: February 09, 2025 Ricardo Singh CNM Attending Provider Active S tart: February 09, 2025 End: February 09, 2025 Team Status: Inactive Member Role/Relationship Status Dates No Primary Care Physician Primary Care Provider Active Start: February 12, 2025 End: February 12, 2025 No Primary Care Physician Referring Provider Active Start: February 12, 2025 End: February 12, 2025 Dr. Charlene Caro , Attending Provider Activ e Start: February 12, 2025 End: February 12, 2025 FOR RECORDS PERTAINING TO PATIENTS WHO ARE OR HAVE BEEN ENROLLED IN A CHEMICAL DEPENDENCY/SUBSTANCEABUSE PROGRAM, SOME INFORMATION MAY BE OMITTED. This clinical summary was aggregated from multiple sources. Caution should be exercised in using it in the provision of clinical care. This summary normalizes information from multiple sources, and as a consequence, information in this document may materially change the coding, format and clinical context of patient data. In addition, data may be omitted in some cases. CLINICAL DECISIONS SHOULD BE BASED ON THE PRIMARY CLINICAL RECORDS. [employer] provides no warranty or guarantee of the accuracy or completeness of information in this document.
[2025-02-13] MEDS: Lidocaine 1% (20 ml mdv) 20 ML Vial INFILT (02:53)
--- NOTE | 2025-02-13 03:00 | HP.PCM.OB_ITS ---
HPI - General General Date of Admission: 02/13/25 Date of Service: 02/13/25 HPI Narrative MARITZA REN, is a 34 F at 40.2 weeks who presents to unit in active labor at /+1 station. Maternal Data Information ASHWIN Calculator Estimated Delivery Date Method Current WG Current Estimate 02/11/25 LMP (Certain) 40w 2d Other Estimates 02/08/25 Ultrasound #1 40w 5d Final ASHWIN: 02/11/25 Final ASHWIN Source: US >20 weeks Gestational age: 40.2 PFSH PFSH Home Medications ?Medication ?Instructions ?Recorded ?Last Taken ?Type multivitamin no.47-iron fum 27 cap PO 06/29/24 Unknown History mg-folate no.1 1 mg-dha 300 mg capsule (PNV-DHA) benzocaine-benzethonium 20 %-0.2 % 1 spray topical .VT N #78 grams 02/09/25 Unknown Rx topical aerosol (Dermoplast First Aid) Allergy/AdvReac Type Severity Reaction Status Date / Time No Known Allergies Allergy Verified 02/12/25 15:50 Family History Father Cancer, Onset Age: 54 multiple myeloma Grandfather Cancer, Onset Age: 70 Paternal- Lymphoma Mother Thyroid disorder, Onset Age: 40 hypothyroidism Grandmother Hypertension, Onset Age: 50 Maternal Surgical History H/O wisdom tooth extraction Social History adopted: No household members: spouse number of children: 3 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 current occupational exposures/hazards: No pets and animals: Yes pets and animals: dog(s) history of recent travel: No sexually active: Yes Smoking Status: Never smoker second hand exposure: No alcohol intake: never substance use type: does not use well-balanced diet: daily or most days caffeine: Yes Type: tea Number of servings: 2 eating out: 1-3 times/week during the past year weight has: remained stable what type of physical activity do you participate in: none frequency: does not exercise eron/hoahaoism: Rastafarian seatbelt use: always do you feel safe at home: Yes 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 Date Name GA/Weeks Outcome Route Bth Weight Gen Labor Lgth Anesthesia Del Locatn Provider FOB Unknown 12/06/2014 Brad 41 live - full term 8lbs 7 oz Male 12 hours epidural [facility] Leanna Irvin Unknown 03/30/2016 Brennan 39 live - full term 8lbs 1oz Male 4hours epidural [facility] Cadence Irvin 10/23/20 Shea 37 live - full term 6#7oz Female ep idural [facility] GUS Irvin Delivery Date: Last Updated by: Zelda Bates no complications; + GBS tx in labor with PCN Delivery Date: Last Updated by: Zelda Bates no complication; GBS + tx with PCN in labor Delivery Date: 10/23/20 Last Updated by: Zelda Bates PROM Visit Details Expected Delivery Route/Plan Labor Preferences- CB/BF classes: no labor support person: Irvin labor intervention preferences: [] pain management options preferred: epidural cut cord/dad catch: NO : yes PP control planned: discussed discussed possible routes of delivery and associated risks: [] special requests: [] Plans Covid status: [] Flu vaccine: [] Tdap vaccine: declines Rhogam: na LARC form signed: yes Problem list reviewed and updated with the most current plan of care details and appropriate orders placed. Relevant counseling for the gestational age provided. Continue routine care and follow up unless otherwise noted in visit notes/problem list details OB Flowsheet Initial Weight: Not Recorded Date -?-?-?-?-?-?-?-?-?-?-?-?- EGA Weight BP Urine Prot -?-?-?-?-?-?-?-?-?-?-?-?- Glucose FHR FuHt Pres Dilation -?-?-?-?-?-?-?-?-?-?-?-?- Effaced St Visit Note 07/06/24 -?-?-?-?-?-?-?-?-?-?--?-?- 8w 4d 153 lb 8 oz 118/72 -?-?-?-?-?-?-?-?-?-?-?-?- 175 -?-?-?-?-?-?-?-?-?-?-?-?- KW- CRL cons wit h dates. undecided on NIPT. requesting toxoplasmosis testing due [place]. 08/07/24 -?-?-?-?-?-?-?-?-?-?-?-?- 13w 1d 157 lb 105/72 Negative -?-?-?-?-?-?-?-?-?-?-?-?- Negative 156 -?-?-?-?-?-?-?-?-?-?-?-?- KW- NOB labs today. doing we ll. declines NIPT. CRL still cons with previous dating. MFM A-US ordered 09/07/24 -?-?-?-?--?-?-?-?-?-?-?-?- 17w 4d 164 lb 109/70 Negative -?-?-?-?-?-?-?-?-?-?-?-?- Negative 150 -?-?-?-?-?-?-?-?-?-?-?-?- SM- no vb lof go od fm no regular ctx SM- no vb lof no regular ctx 10/19/24 -?-?-?-?-?-?-?-?-?-?-?-?- 23w 4d 171 lb 4 oz 97/62 Nega tive -?-?-?-?-?-?-?-?-?-?-?-?- Negative 148 -?-?-?-?-?-?-?-?-?-?-?-?- JV- no lof, vagi nal bleeding, or dec fm. asked to be seen less often, however now that we are starting to get closer to 3rd trimester recommend routine exams. plan for gct next visit. and then q 2 weeks. 11/14/24 -?-?-?-?-?-?-?-?-?-?-?-?- 27w 2d 173 lb 6 oz 96/60 Nega tive -?-?-?-?-?-?-?-?-?-?-?-?- Negative 158 -?-?-?-?-?-?-?-?-?-?-?-?- MH-No VB, lof. Georgiana lainez FM. 28 wk labs pending. Larella done. 12/07/24 -?-?-?-?-?-?-?-?-?-?-?-?- 30w 4d 180 lb 8 oz 103/66 Nega tive -?-?-?-?-?-?-?-?-?-?-?-?- Negative 150 31 -?-?-?-?-?-?-?-?-?-?-?-?- SM- no vb lof go od fm no reuglar ctx considering tdap 12/18/24 -?-?-?-?-?-?-?-?-?-?-?-?- 32w 1d 177 lb 6 oz 98/60 Nega tive -?-?-?-?-?-?-?-?-?-?-?-?- Negative 152 33 -?-?-?-?-?-?-?-?-?-?-?-?- MH-No VB, LOF. G obre Fm. Denies concerns 01/02/25 -?-?-?-?-?-?-?-?-?-?-?-?- 34w 2d 181 lb 6 oz 103/62 Nega tive -?-?-?-?-?-?-?-?-?-?-?-?- Negative 140 34 -?-?-?-?-?-?-?-?-?-?-?-?- SM- no vb lof go od fm no regular ctx 01/15/25 -?-?-?-?-?-?-?-?-?-?-?-?- 36w 1d 180 lb 100/61 Negative -?-?-?--?-?-?-?-?-?-?-?-?- Negative 140 35 Cephalic 2 -?-?-?-?-?-?-?-?-?-?-?-?- 60 -2 KW- no vb. lof.ctx. good fm. GBS today. 01/25/25 -?-?-?-?-?-?-?-?-?-?-?-?- 37w 4d 183 lb 4 oz 109/69 Nega tive -?-?-?-?-?-?-?-?-?-?-?-?- Negative 130 37 Cephalic 2 .5 -?-?-?-?-?-?-?-?-?-?-?-?- 60 -2 KW- no vb, lof, ctx. good fm GBS neg. 02/02/25 -?-?-?-?-?-?-?-?-?-?-?-?- 38w 5d 181 lb 107/67 Negative -?-?-?-?-?-?-?-?-?-?-?-?- Negative 135 38 Cephalic 2 -?-?-?-?-?-?-?-?-?-?-?-?- 60 -2 LC- no vb/ ctx/lof. good fm 02/09/25 -?-?-?-?-?-?-?-?-?-?-?-?- 39w 5d 180 lb 5 oz 95/63 Nega tive -?-?-?-?-?-?-?-?-?-?--?-?- Negative 140 38 Cephalic 3 -?-?-?-?-?-?-?-?-?-?-?-?- 70 -2 KW- no vb/ lof/ctx. good fm. labor precautions would like sweep on wednesday02/12/25 -?-?-?-?-?-?-?-?-?-?-?-?- 40w 1d 183 lb 6 oz 100/66 Nega tive -?-?-?-?-?-?-?-?-?-?-?-?- Negative 166 39 Cephalic 4 -?-?-?-?-?-?-?-?-?-?-?-?- 80 -2 JV- membra ne sweep today. requests next krzysztof for IOL. no lof, vaginal bleeding, or dec fm. ROS Constitutional Constitutional: Denies change in weight, fatigue, fever(s), headache(s), poor appetite or weakness Eyes Eyes: Denies blurry vision, change in vision, floaters, seeing flashes or spots in vision ENT HEENT: Denies dizziness, headache(s), loss taste/smell or sore throat Cardiovascular Cardiovascular: Denies chest pain, dizziness, dyspnea, irregular heart rhythm, lightheadedness, palpitations or rapid heart rate Respiratory/Chest Respiratory/Chest: Denies change in mental status, chest tightness, cough, dyspnea or breast pain Gastrointestinal Gastrointestinal: Denies anorexia, chewing difficulty, constipation, diarrhea or weight changes Genitourinary Genitourinary: Denies difficulty urinating, dysuria, flank pain, genital pain, urinary frequency or urinary urgency Musculoskeletal Musculoskeletal: Denies back pain, difficulty walking, extremity pain, joint pain, muscle cramps or muscle weakness Integumentary Integumentary: Denies lesions or unusual bruising Neurologic Neurologic: Denies abnormal movements, abnormal speech, dizziness, numbness, seizure-like activity, syncope or weakness Psychiatric Psychiatric: Denies behavioral changes, change in appetite, confusion, depression, homicidal ideation, suicidal ideation or suicidal thoughts Endocrine Endocrinology: Denies excessive sweating, polydipsia or polyuria Hematologic/Lymphatic Hematologic/Lymphatic: Denies anemia Allergic/Immunologic Allergic/Immunologic: Denies itchy eyes, lip swelling, throat swelling, tongue swelling or wheezing Physical Exam Const alert, oriented x3 and no apparent distress General Appearance: cooperative Orientation / Consciousness: awake HEENT normocephalic Neck full ROM Lymph Lymphatic: no lymphadenopathy noted Chest inspection of chest normal Resp normal respiratory effort and normal air movement Effort and Inspection: able to speak in complete sentences and symmetric chest movement GI soft to palpation and non-tender Inspection: gravid Palpation: soft; Negative for tender external exam normal Back/Spine normal to inspection Extremity normal to inspection and full ROM Skin no rashes or lesions noted Psych mental status grossly normal Appearance: grossly normal Speech: normal speech Labs Labs Labs: Blood Type A POSITIVE Antibody Screen NEGATIVE Hct 35.4 % (37-47) L Hgb 12.1 g/dL (12.0-15.0) Pap Smear Negative Obstetrics Ultrasound Syphilis Total Ab Nonreactive (Nonreactive) Rubella IgG Antibody Reactive (Nonreactive) Hep Bs Antigen Non-Reactive (Nonreactive) Hepatitis C Antibody Non-Reactive (Nonreactive) Chlamydia DNA (JIMMY) Negative (Negative) N.gonorrhoeae DNA (JIMMY) Negative (Negative) HIV 1&2 Antibody Nonreactive (Nonreactive) Glucose 1 Hr 50 gm 80 mg/dL (70-140) Rhogam given: No Assessment & Plan (1) Vaginal delivery: COMMENT: IAL girl 40.2 (2) Precipitous delivery: (3) Supervision of high-risk : QUALIFIERS: Trimester: third trimester Qualified Code(s): O09.93 - Supervision of high risk , unspecified, third trimester COMMENT: PRR, , ASHWIN 02/11/25, Brennan Benavides, Irvin (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
--- NOTE | 2025-02-13 03:03 | EX.PCM.OBVAG ---
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, antepartum: COMMENT: Pt also carrier but of a different CF gene than pt (5) : QUALIFIERS: Weeks of gestation: 40 weeks Qualified Code(s): Z3A.40 - 40 weeks gestation of COMMENT: GBS neg, declines carrier, genetic and ntd screen, nl anatomy Maternal Data Information ASHWIN Calculator Estimated Delivery Date Method Current WG Current Estimate 02/11/25 LMP (Certain) 40w 2d Other Estimates 02/08/25 Ultrasound #1 40w 5d Final ASHWIN: 02/11/25 Final ASHWIN Source: US >20 weeks Gestational age: 40.2 Vaginal Delivery Maternal Presentation Maternal Presentation: Active Labor Maternal Presentation: Presented to unit for active labor Vaginal Delivery Information Procedure Performed: Spontaneous Vaginal Delivery Surgeon/Practitioner: Talita Ng Date of Procedure: 02/13/25 Pre-Procedure Diagnosis: see problem list Post-Procedure Diagnosis: same Estimated Blood Loss: 200 Time of Delivery: 02:38 Findings Description of procedure: Arrived to unit at 10cm dilated and made steady progress with effective maternal pushing. Delivered the head in RENA presentation. The head was delivered atraumatically and a tight nuchal cord was identified delivered through. The anterior and posterior shoulders delivered without complication followed by the rest of the and the infant was placed on the maternal abdomen. Delayed cord clamping was employed for approximately 3 minutes. Cord was clamped and cut and gentle traction was applied to the cord and the placenta delivered spontaneously. Immediately following, it was noted to be intact with a 3 vessel cord. Uterine bleeding stable. The perineum and vagina were inspected and noted to have a first degree laceration which was repaired with 3-0 Vicryl in the usual fashion. EBL was 200. Patient and tolerated delivery well. Apgars 9/9. Dr Vila notified of vaginal delivery and orders reviewed. Physician agrees with current plan of care. 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
--- NOTE | 2025-02-13 03:08 | DCINST_ITS ---
Discharge Instructions DC O2, CPAP, BIPAP needs Home O2 Discharge instructions: No Dressing / Incision Discharge Activity: Return to Normal Activity May resume sexual activity in: 6-8 weeks Dressing / Incision Call your doctor if you observe: Fever of 101 or Higher, Coldness, Increased Pain, Numbness or Tingling, Change in Color, Inability to urinate, Inability to have a bowel movement, Using more than 1 pad per hour, Shortness of breath, Dizziness, Fainting spells, Swelling in the ankles, Chest pain, Increased palpitations (irregular heartbeat), Calf discomfort and Uncontrolled pain Follow Up Care Please Follow Up With: Talita Ng CNM When: Please call the office to schedule your follow up appointment in 6 weeks. If you had high blood pressure please call to schedule an appointment in 2 weeks. Test Results: Test results from this visit will be discussed in further detail at your follow- up appointment, if applicable. Discharge Plan Admission Admit Date/Time: 02/13/25 02:35 Attending Provider: Talita Ng Primary Care Provider: Care Physician,Francesca Primary Discharge Orders/Prescriptions Prescriptions: No Action PNV-DHA 27 mg iron-1 mg -300 mg capsule PO Dermoplast First Aid 20-0.2 % aerosol 1 spray topical .PRN Qty: 78 0RF Referrals / Follow Up: Care Physician,No Primary [Primary Care Provider] -
[2025-02-13 03:24] LABS: Hematocrit 39.2 % (37-47); Hemoglobin 13.5 g/dL (12.0-15.0); Immature Granulocytes Count 0.110 X10^3/uL (0.0-0.0); Mean Corp Hgb Conc 34.4 g/dL (32-36); Mean Corpuscular Volume 87.5 fL (81-99); Mean Platelet Vol. 9.0 fl (6.2-12.0); NRBC Flagged by Analyzer 0 % (0-5); Platelet Count 187 K/mm3 (150-450); RBC Distribution Width CV 13.1 % (11.6-14.6); RBC Distribution Width SD 41.7 fl (35.1-43.9); Red Blood Count 4.48 M/mm3 (4.2-5.4); White Blood Count 16.3 K/mm3 (4.4-11.0)
[2025-02-13 04:13] LABS: Syphilis Antibodies Nonreactive (Nonreactive)
[2025-02-14 00:17] VITALS: BP 107/58; PULSE 69; O2SAT 93
[2025-02-14 00:18] VITALS: BP 107/58; PULSE 63; RESP 16; TEMP 36.6; O2SAT 94
[2025-02-14 05:14] VITALS: BP 109/71; PULSE 70; PULSE 74; RESP 16; TEMP 36.2; O2SAT 94; O2SAT 97
--- NOTE | 2025-02-14 07:51 | PCM.PN.OB ---
Subjective Subjective Patient doing well without complaints. Tolerating PO. Ambulating and voiding without difficulty. Feeding well. Denies chest pain, shortness of breath, calf pain/swelling, fevers, chills, lightheadedness. Objective Data Objective Data Vital Signs: Vital Signs Temp Pulse Resp BP Pulse Ox O2 Del Method 97.1 F L 74 16 109/71 97 Room Air 02/14/25 05:14 02/14/25 05:14 02/14/25 05:14 02/14/25 05:14 02/14/25 05:14 02/14/25 05:14 Oxygen Delivery Method Room Air Weight: 183 lb Body Mass Index (BMI) 32.4 Intake & Output: Intake and Output for Last 24 Hours 02/12/25 02/13/25 02/14/25 23:59 23:59 23:59 Output Total 800 / 800 Balance -800 / -800 Lab / Micro Data 02/13/25 03:05 Physical Exam Const alert and oriented x3 HEENT normocephalic Eyes PERRL Neck full ROM Resp normal respiratory effort GI soft to palpation GI Narrative: FF below U Assessment & Plan (1) Vaginal delivery: COMMENT: IAL girl 40.2 PLAN: Plan s/p PPD # 1 1. routine post delivery care 2. breast feeding- support given 3. rh positive 4. rubella immune 5. home today
[2025-02-14 08:00] VITALS: BP 101/61; PULSE 70; RESP 16; TEMP 36.4; O2SAT 100
[2025-02-14 08:23] VITALS: PULSE 70; O2SAT 94
[2025-02-14 08:24] VITALS: BP 101/61; PULSE 67
--- NOTE | 2025-02-19 12:06 | NURSING ---
Follow up phone call made, no answer, voicemail left
== END 2025-02-14 09:15 | disposition home or self-care (01) | DRG 807 ==
PROVIDERS: Admitting Provider Advanced Practice Midwife; Visit Provider Advanced Practice Midwife
DX: O62.3 Precipitate labor (principal); Z37.0 Single live birth; O48.0 Post-term pregnancy; Z3A.40 40 weeks gestation of pregnancy; Z14.1 Cystic fibrosis carrier; O70.0 First degree perineal laceration during delivery
CPT/HCPCS: 85025; 86780; 86850; 86900; 86901; 99221; G0378